=== PATIENT | female | born 1985 | race Caucasian/White ===

== ENCOUNTER 2017-06-24 18:15 | Inpatient (IN) | payer BC, OTHER ==
[2017-06-24] MEDS ORDERED: LORazepam 2 MG/ML SDV IVPUSH ONE (18:24)
[2017-06-24] MEDS ORDERED: Ondansetron 4 MG/2 ML SDV IVPUSH ONE (18:24)
--- NOTE | 2017-06-24 18:31 | EDM.PDOC ---
ED HPI GENERAL MEDICAL PROBLEM - General Chief Complaint: Drug or Alcohol Abuse Stated Complaint: [facility] Time Seen by Provider: 06/24/17 18:20 Source of Information: Reports: Patient - History of Present Illness INITIAL COMMENTS - FREE TEXT/NARRATIVE: Patient is brought here today by the [facility]. Patient reportedly had a seizure at approximately 5:30 PM to this evening, patient has no history of seizures. Seizure was witnessed by her boyfriend who states it lasted 30-60 seconds. Just prior to the seizure patient was laying on the couch watching television with her boyfriend and states that she felt "very off ". She reportedly got up to use the bathroom and fell in the bathroom and boyfriend saw her on the floor seizing. The last thing that the patient remembers was bending over to sit on the toilet. She denies any loss of bowel or bladder function with her seizure. She states that she was nauseated afterwards and a bit confused but no emesis. She denies hitting her head or any head pain currently. Patient admittedly states that she has been drinking a large amount of alcohol recently, her drink of choice is Jagemeister. Patient's boyfriend is also admittedly an alcoholic, they have been trying to cut back on alcohol use together. Patient's boyfriend has been rationing her alcohol use, he states that she has had one shot of Jagemeister today She also reports occasional marijuana use, last use was yesterday. She notes no specific trigger to her drinking but has a history of anxiety. She states that she is a hypochondriac and feels that her persistent drinking as bad for her health so she has been trying to stop this. Patient is unsure how much she drank today, she is not sure what time it is, what day it is or when she was drinking. Patient is on no medications on a regular basis, she was previously on an OCP but states that she hadn't missed a menses to stop this because she thought she that she was . LMP was beginning of April. Patient states that she did was evaluated in the clinic by her PCP for possible and the test was negative. She states that she also has a history of her liver enzymes being high, she states that she had an ultrasound which did not demonstrate any sign of cirrhosis but did demonstrate fatty liver disease. Patient is fairly alert upon examination, her memory is a bit vague in the hour after the seizure. She denies any pain. right side Pain Score (Numeric/FACES): 4 - Related Data Allergies Allergy/AdvReac Type Severity Reaction Status Date / Time No Known Allergies Allergy Verified 06/24/17 18:23 Home Meds: Home Meds . [Unable to Verify Home Med List] 06/24/17 [History] Past Medical History - Past Health History Medical/Surgical History: Denies Medical/Surgical History Social & Family History - Tobacco Use Smoking Status *Q: Current Every Day Smoker Years of Tobacco use: 15 Packs/Tins Daily: 1 - Alcohol Use Days Per Week of Alcohol Use: 5 Number of Drinks Per Day: 5 Total Drinks Per Week: 25 - Recreational Drug Use Recreational Drug Use: No Recreational Drug Type: Reports: Marijuana/Hashish ED ROS GENERAL - Review of Systems Review Of Systems: See Below Constitutional: Reports: Weakness, Fatigue, Decreased Appetite. Denies: Fever, Chills HEENT: Reports: No Symptoms Respiratory: Reports: No Symptoms Cardiovascular: Reports: No Symptoms Endocrine: Reports: No Symptoms GI/Abdominal: Reports: No Symptoms : Reports: No Symptoms Musculoskeletal: Reports: No Symptoms Skin: Reports: No Symptoms - Physical Exam Exam: See Below Exam Limited By: Other (Mild/moderate confusion upon initial examination.) General Appearance: Alert, WD/WN, Anxious Eye Exam: Bilateral Eye: PERRL (dilated but reactive) Ears: Normal External Exam, Normal Canal, Normal TMs Nose: Normal Inspection, Normal Mucosa Throat/Mouth: Normal Inspection, Normal Oropharynx, Other (small bite denis on inside of left lower lip) Head Exam: Atraumatic, Normocephalic. No: Scalp Lacerations, Scalp Abrasions Neck: Normal Inspection Respiratory/Chest: No Respiratory Distress, Lungs Clear, Normal Breath Sounds Cardiovascular: Normal Peripheral Pulses, Regular Rate, Rhythm, No Murmur GI/Abdominal: Normal Bowel Sounds, Soft, Non-Tender Neuro Exam (Abbreviated): Alert, Memory Loss Recent Events, Other (Initial confusion, this did improve significantly after 30-45 minutes of arrival. Patient has decreased memory of the 1 hour after the seizure. The examination she is alert and oriented 3. No sensory or motor defects. Normal reflexes.) Extremities: Normal Inspection, Normal Range of Motion Psychiatric: Anxious Skin Exam: Warm, Dry, Intact EKG INTERPRETATION EKG Date: 06/24/17 Time: 18:32 Rhythm: NSR (Sinus tachycardia) [place]: Normal Comparison: NA - No Prior EKG EKG Interpretation Comments: Reviewed with Dr Iglesias Course - Vital Signs Last Recorded V/S: Last Vital Signs Temp 97 F 06/24/17 18:19 Pulse 135 H 06/24/17 18:19 Resp 18 06/24/17 18:19 BP 144/17 H 06/24/17 18:19 Pulse Ox 10 L 06/24/17 18:19 - Orders/Labs/Meds Orders: Active Orders 24 hr Category Date Time Status EKG 12 Lead [EKG Documentation Completion] [RC] STAT Care 06/24/17 18:24 Active Head wo Cont [CT] Stat Exams 06/24/17 18:24 Taken Magnesium Sulfate/Water [Magnesium Sulfate 2 GM in Med 06/24/17 19:02 Active Water 50 ML] 2 gm Premix Bag 1 bag IV ONETIME Potassium Chloride [KCl 10 MEQ in Water 100 ML] 10 meq Med 06/24/17 20:30 Active Premix Bag 1 bag IV ONETIME Medication Orders Magnesium Sulfate 2 gm/ Premix 50 mls @ 25 mls/hr IV ONETIME ONE Stop: 06/24/17 21:01 Last Admin: 06/24/17 19:35 Dose: 25 mls/hr Potassium Chloride 10 meq/ (Premix) 100 mls @ 100 mls/hr IV ONETIME ONE Stop: 06/24/17 21:29 Last Admin: 06/24/17 19:36 Dose: 100 mls/hr Labs: Laboratory Tests 06/24/17 06/24/17 06/24/17 Range/Units 18:25 18:25 18:25 WBC 10.30 H (3.98-10.04) K/mm3 RBC 4.14 (3.98-5.22) M/mm3 Hgb 15.5 (11.2-15.7) gm/L Hct 43.9 (34.1-44.9) % MCV 106.0 H (79.4-94.8) fl MCH 37.4 H (25.6-32.2) pg MCHC 35.3 (32.2-35.5) g/dl RDW Std Deviation 45.1 (36.4-46.3) fL Plt Count 168 L (182-369) K/mm3 MPV 10.7 (9.4-12.3) fl Neutrophils % (Manual) 57 (40-60) % Band Neutrophils % 0 (0-10) % Lymphocytes % (Manual) 37 (20-40) % Atypical Lymphs % 0 % Monocytes % (Manual) 4 (2-10) % Eosinophils % (Manual) 1 (0.7-5.8) % Basophils % (Manual) 1 (0.1-1.2) Platelet Estimate Adequate Plt Morphology Comment Normal Stomatocytes 3+ marked RBC Morph Comment Not Reportable Sodium 134 L (136-145) mEq/L Potassium 2.5 L (3.5-5.1) mEq/L Chloride 92 L (98-107) mEq/L Carbon Dioxide 25 (21-32) mEq/L Anion Gap 19.5 H (5-15) BUN 5 L (7-18) mg/dL Creatinine 1.1 H (0.55-1.02) mg/dL Est Cr Clr Drug Dosing 65.46 mL/min Estimated GFR (MDRD) 57 (>60) mL/min BUN/Creatinine Ratio 4.5 L (14-18) Glucose 171 H (74-106) mg/dL Calcium 9.8 (8.5-10.1) mg/dL Magnesium 1.3 L (1.8-2.4) mg/dl Total Bilirubin 1.5 H (0.2-1.0) mg/dL GGT 449 H (5-55) U/L AST 101 H (15-37) U/L ALT 65 H (14-59) U/L Alkaline Phosphatase 103 (46-116) U/L Ammonia (11-32) umol/L Total Protein 8.7 H (6.4-8.2) g/dl Albumin 4.6 (3.4-5.0) g/dl Globulin 4.1 gm/dL Albumin/Globulin Ratio 1.1 (1-2) TSH 3rd Generation 4.591 H (0.358-3.74) uIU/mL Urine HCG, Qual (NEGATIVE) Urine Opiates Screen (NEGATIVE) Ur Buprenorphine Scrn (NEGATIVE) Ur Oxycodone Screen (NEGATIVE) Urine Methadone Screen (NEGATIVE) Ur Propoxyphene Screen (NEGATIVE) Ur Barbiturates Screen (NEGATIVE) Ur Tricyclics Screen (NEGATIVE) Ur Phencyclidine Scrn (NEGATIVE) Ur Amphetamine Screen (NEGATIVE) U Methamphetamines Scrn (NEGATIVE) U Benzodiazepines Scrn (NEGATIVE) U Cocaine Metab Screen (NEGATIVE) U Marijuana (THC) Screen (NEGATIVE) Ethyl Alcohol 0.00 (0.00) gm% 06/24/17 06/24/17 06/24/17 Range/Units 18:25 19:05 19:05 WBC (3.98-10.04) K/mm3 RBC (3.98-5.22) M/mm3 Hgb (11.2-15.7) gm/L Hct (34.1-44.9) % MCV (79.4-94.8) fl MCH (25.6-32.2) pg MCHC (32.2-35.5) g/dl RDW Std Deviation (36.4-46.3) fL Plt Count (182-369) K/mm3 MPV (9.4-12.3) fl Neutrophils % (Manual) (40-60) % Band Neutrophils % (0-10) % Lymphocytes % (Manual) (20-40) % Atypical Lymphs % % Monocytes % (Manual) (2-10) % Eosinophils % (Manual) (0.7-5.8) % Basophils % (Manual) (0.1-1.2) Platelet Estimate Plt Morphology Comment Stomatocytes RBC Morph Comment Sodium (136-145) mEq/L Potassium (3.5-5.1) mEq/L Chloride (98-107) mEq/L Carbon Dioxide (21-32) mEq/L Anion Gap (5-15) BUN (7-18) mg/dL Creatinine (0.55-1.02) mg/dL Est Cr Clr Drug Dosing mL/min Estimated GFR (MDRD) (>60) mL/min BUN/Creatinine Ratio (14-18) Glucose (74-106) mg/dL Calcium (8.5-10.1) mg/dL Magnesium (1.8-2.4) mg/dl Total Bilirubin (0.2-1.0) mg/dL GGT (5-55) U/L AST (15-37) U/L ALT (14-59) U/L Alkaline Phosphatase (46-116) U/L Ammonia 21 (11-32) umol/L Total Protein (6.4-8.2) g/dl Albumin (3.4-5.0) g/dl Globulin gm/dL Albumin/Globulin Ratio (1-2) TSH 3rd Generation (0.358-3.74) uIU/mL Urine HCG, Qual Negative (NEGATIVE) Urine Opiates Screen Negative (NEGATIVE) Ur Buprenorphine Scrn Negative (NEGATIVE) Ur Oxycodone Screen Negative (NEGATIVE) Urine Methadone Screen Negative (NEGATIVE) Ur Propoxyphene Screen Negative (NEGATIVE) Ur Barbiturates Screen Negative (NEGATIVE) Ur Tricyclics Screen Negative (NEGATIVE) Ur Phencyclidine Scrn Negative (NEGATIVE) Ur Amphetamine Screen Negative (NEGATIVE) U Methamphetamines Scrn Negative (NEGATIVE) U Benzodiazepines Scrn Presumptive positive H (NEGATIVE) U Cocaine Metab Screen Negative (NEGATIVE) U Marijuana (THC) Screen Presumptive positive H (NEGATIVE) Ethyl Alcohol (0.00) gm% Meds: Medications Generic Name Dose Route Start Last Admin Trade Name Freq PRN Reason Stop Dose Admin Magnesium Sulfate 2 gm/ Premix 50 mls @ 25 mls/hr 06/24/17 19:02 06/24/17 19: 35 IV 06/24/17 21:01 25 mls/hr ONETIME ONE Administration Potassium Chloride 10 meq/ 100 mls @ 100 mls/hr 06/24/17 20:30 06/24/17 19:36 Premix IV 06/24/17 21:29 100 mls/hr ONETIME ONE Administration Discontinued Medications Generic Name Dose Route Start Last Admin Trade Name Freq PRN Reason Stop Dose Admin Sodium Chloride 1,000 mls @ 999 mls/hr 06/24/17 18:58 06/24/17 19:26 Normal Saline IV 06/24/17 19:58 999 mls/hr ONETIME ONE Administration Thiamine HCl 100 mg/ Sodium 101 mls @ 202 mls/hr 06/24/17 18:59 06/24/17 19: 26 Chloride IV 06/24/17 19:00 202 mls/hr ONETIME ONE Administration Lorazepam 1 mg 06/24/17 18:24 06/24/17 18:34 Ativan IVPUSH 06/24/17 18:25 1 mg ONETIME ONE Administration Ondansetron HCl 4 mg 06/24/17 18:24 06/24/17 18:33 Zofran IVPUSH 06/24/17 18:25 4 mg ONETIME ONE Administration Potassium Chloride 20 meq 06/24/17 19:16 06/24/17 19:27 Klor-Con M20 PO 06/24/17 19:17 20 meq ONETIME ONE Administration Vitamin B Complex/Vitamin C 1 cap 06/24/17 19:00 06/24/17 19:27 Super B With Vitamin C PO 06/24/17 19:01 1 cap NOW STA Administration - Re-Assessments/Exams Free Text/Narrative Re-Assessment/Exam: Patient initially rather confused, this did improve significantly after 30-45 minutes of arrival. Seizure likely due to alcohol withdrawal. Lab work is pending and will get a CT of her head without contrast. 1 mg lorazepam was given to help with anxiety and prevent repeat seizure as well as Zofran to help with the nausea. Magnesium low at 1.3 so will supplement this as well. 06/24/17 19:09 Potassium low at 2.5, patient was given 40 mEq of by mouth potassium supplement while her current IV completes and then will be given 10 mEq IV potassium. AST 101, ALC 65 and GGT is 449. Alcohol is negative. Urine is positive for benzodiazepines as well as marijuana. TSH mildly elevated at 4.591. HCG negative. CT of her head demonstrates no acute intracranial abnormality. MCG was completed and patient will be admitted on inpatient status. Case was discussed with Dr. Singleton and Phillip Lincoln PA-C who agreed to accept the patient. 06/24/17 20:02 Departure - Departure Time of Disposition: 20:02 Disposition: Admitted As Inpatient 65 Condition: Fair Clinical Impression: Liver disease due to alcohol, Stomatocytosis, Seizure Alcohol withdrawal syndrome Qualifiers: Complication of substance-induced condition: with unspecified complication Qualified Code(s): F10.239 - Alcohol dependence with withdrawal, unspecified - Discharge Information - My Orders Last 24 Hours: My Active Orders 06/24/17 18:24 EKG 12 Lead [EKG Documentation Completion] [RC] STAT Head wo Cont [CT] Stat 06/24/17 19:02 Magnesium Sulfate/Water [Magnesium Sulfate 2 GM in Water 50 ML] 2 gm Premix Bag 1 bag IV ONETIME 06/24/17 20:30 Potassium Chloride [KCl 10 MEQ in Water 100 ML] 10 meq Premix Bag 1 bag IV ONETIME - Assessment/Plan Last 24 Hours: My Active Orders 06/24/17 18:24 EKG 12 Lead [EKG Documentation Completion] [RC] STAT Head wo Cont [CT] Stat 06/24/17 19:02 Magnesium Sulfate/Water [Magnesium Sulfate 2 GM in Water 50 ML] 2 gm Premix Bag 1 bag IV ONETIME 06/24/17 20:30 Potassium Chloride [KCl 10 MEQ in Water 100 ML] 10 meq Premix Bag 1 bag IV ONETIME
[2017-06-24] MEDS ORDERED: Sodium Chloride 0.9% 1,000 ML IV ONE (18:58)
[2017-06-24] MEDS ORDERED: Thiamine 100 MG in Sodium Chloride 0.9% 100 ML IV ONE (18:59)
[2017-06-24] MEDS ORDERED: Vitamin B Complex With Vitamin C Cap PO STA (19:00)
[2017-06-24] MEDS ORDERED: Magnesium Sulfate/Water 2 GM in Premix Bag 1 BAG IV ONE (19:02)
[2017-06-24] MEDS ORDERED: Potassium Chloride 20 MEQ Tab.ER PO ONE (19:16)
[2017-06-24] MEDS ORDERED: Potassium Chloride 10 MEQ in Premix Bag 1 BAG IV ONE (20:30)
[2017-06-24] MEDS ORDERED: Polyethylene Glycol 3350 Powder 17 GM Packet PO PRN (21:00)
[2017-06-24] MEDS ORDERED: Ondansetron 4 MG/2 ML SDV IV PRN (21:00)
[2017-06-24] MEDS ORDERED: Bisacodyl 5 MG Tab PO PRN (21:00)
[2017-06-24] MEDS ORDERED: HYDROmorphone 0.5 MG/0.5 ML Syringe IVPUSH PRN (21:00)
[2017-06-24] MEDS ORDERED: Acetaminophen 325 MG Tab PO PRN (21:00)
[2017-06-24] MEDS ORDERED: Ondansetron 4 MG Tab.DIS PO PRN (21:00)
[2017-06-24] MEDS ORDERED: Albuterol/Ipratropium 3.0-0.5 MG/3 ML Neb Soln NEB PRN (21:00)
[2017-06-24] MEDS ORDERED: Docusate Sodium 100 MG Cap PO PRN (21:00)
[2017-06-24] MEDS ORDERED: LORazepam 2 MG/ML SDV IVPUSH PRN ×3 (21:08→21:38)
[2017-06-24] MEDS ORDERED: hydrALAZINE 20 MG/ML SDV IVPUSH PRN (21:08)
[2017-06-24] MEDS ORDERED: Metoprolol Tartrate 5 MG/5 ML SDV IVPUSH PRN (21:10)
[2017-06-24] MEDS ORDERED: QUEtiapine 25 MG Tab PO ONE (21:11)
[2017-06-24] MEDS ORDERED: Topiramate 100 MG Tab PO ONE (21:20)
--- NOTE | 2017-06-24 21:25 | PCM.HP ---
H&P History of Present Illness - General Date of Service: 06/24/17 Admit Problem/Dx: Admission Diagnosis/Problem Admission Diagnosis/Problem Alcohol withdrawal seizure Source of Information: Patient, Old Records, Provider, RN, RN Notes Reviewed, Significant Other History Limitations: Reports: No Limitations - History of Present Illness Initial Comments - Free Text/Narative: Ruth Leong is a 32yo female who presents to our ED today via [place] [facility] after having a seizure at home. Seizure was witnessed by her boyfriend and lasted 30-60 seconds. Patient reportedly told her boyfriend that she felt "very off" and got up use the bathroom. Huey saw her on the floor seizing. Denies loss of bladder or bowel control. She states she was nauseated afterwards and confused but did not vomit. Denies hitting head or head pain. She reportedly drinks large amounts of Jagermeister daily but has been attempting to cut back. She reported he had one shot today. Her boyfriend admits that he is also alcoholic and they're both trying to cut back. She reports marijuana use yesterday. She denies any specific trigger to her drinking but does state she has a history of anxiety. She states that she is a hypochondriac and feels her persistent ringing is bad for her health, which is why she is trying to stop. In the ED she was initially orientated to person and place but not time. She reports a history of elevated liver enzymes, and [facility] which showed fatty liver but no cirrhosis. In the ED afebrile at 97F. Pulse was 135. Respirations 18. Blood pressure 112/83. Pulse ox 96%. There is probable left atrial enlargement. She does have Q waves in II, III, and aVF with T-wave inversion on these leads as well. This does show some changes from prior EKG which is several years old. Labs are obtained: CBC 10.30. Hemoglobin 15.5. Hematocrit 43.9. His macrocytic. Platelets are low at 168,000. Sodium is low 134. Potassium very low at 2.5. Chloride low at 92. Carbon dioxide is 25. Anion gap 19.5. BUN is 5. Creatinine 1.1. EGFR is 57. Glucose is high at 171. Calcium 9.8. Magnesium is very low at 1.3. Bilirubin is high at 1.5. GGT is very high at 449. AST is high at 101. ALT is high at 65. Alkaline phosphatase is normal at 103. Ammonia is 21. Protein is elevated at 8.7. Albumin good at 4.6. TSH is elevated at 4.591. UDS is presumptive positive for benzodiazepines and marijuana. Ethyl alcohol is 0.00. 2 g magnesium as well as 10 tablets potassium were given IV. She was given a 1 L bolus of fluid and milligram lorazepam and 100 mg of thiamine. Zofran 4 mg IVP was also given. 20 no: By mouth potassium chloride as well as the vitamin B complex/vitamin C Were given. Confusion did improve significantly after ED arrival. CT of her head was obtained and did insert no acute intracranial abnormality. She denies any past medical or surgical history, however she is a current every day smoker. She uses one pack per day. She has reportedly uses marijuana and alcohol as above. She subsequently admitted to the ICU. She is a full code. Her PCP is Dr. Moya at [facility] in [place]. right side Pain Score (Numeric/FACES): 1 - Related Data Allergies/Adverse Reactions: Allergies Allergy/AdvReac Type Severity Reaction Status Date / Time No Known Allergies Allergy Verified 06/24/17 18:23 Home Medications: Home Meds . [Unable to Verify Home Med List] 06/24/17 [History] Past Medical History - Past Health History Medical/Surgical History: Denies Medical/Surgical History Psychiatric History: Reports: Addiction, Anxiety, Panic Attack Social & Family History - Family History Family Medical History: Noncontributory - Tobacco Use Smoking Status *Q: Current Every Day Smoker Years of Tobacco use: 15 Packs/Tins Daily: 1 - Caffeine Use Caffeine Use: Reports: None - Alcohol Use Days Per Week of Alcohol Use: 5 Number of Drinks Per Day: 5 Total Drinks Per Week: 25 - Recreational Drug Use Recreational Drug Use: No Drug Use in Last 12 Months: Yes Recreational Drug Type: Reports: Marijuana/Hashish Recreational Drug Use Frequency: Socially H&P Review of Systems - Review of Systems: Review Of Systems: See Below Free Text/Narrative: In to see Ruth. We did have a long discussion about her plan of care. She is very concerned about her liver being damaged. I explained to her eventual consequences continued drinking could have on her liver as it is already hurt. She does report having already had some withdrawal symptoms. She has reportedly had auditory hallucinations in the past, however she is not having any currently. She does admit some confusion about the events that happened after her seizure and her eventual transport to the ED. She does admit that she has a drinking problem. She would like help. She is aware that she will see psychiatry and a substance abuse counselor. She reports this is a "wakeup call." Her significant other is in the room with her and voices his commitment to sobriety as well. General: Reports: Malaise, Weakness, Fatigue, Diaphoresis, Decreased Appetite. Denies: Fever, Chills HEENT: Reports: No Symptoms. Denies: Dysphasia, Eye Pain, Headaches, Hearing Changes, Sinus Congestion, Vertigo, Visual Changes Pulmonary: Reports: No Symptoms. Denies: Shortness of Breath, Wheezing, Pleuritic Chest Pain, Sputum Cardiovascular: Reports: Palpitations (none currently ). Denies: Chest Pain, Dyspnea on Exertion, Edema, Lightheadedness, Syncope Gastrointestinal: Reports: No Symptoms. Denies: Black Stool, Bloody Stool, Constipation, Diarrhea, Hematemesis, Hematochezia, Nausea, Vomiting Genitourinary: Reports: No Symptoms. Denies: Dysuria, Frequency, Burning, Pain , Urgency, Incontinence Musculoskeletal: Reports: No Symptoms. Denies: Neck Pain, Shoulder Pain, Arm Pain, Back Pain, Hand Pain, Leg Pain, Foot Pain Skin: Reports: No Symptoms, Diaphoresis. Denies: Cyanosis, Jaundice, Mottled Psychiatric: Reports: No Symptoms, Confusion (improved greatly ), Anxiety, Hallucinations (Auditory) (none currently ). Denies: Depression, Mood Lability , Agitation, Suicidal Ideation, Homicidal Ideation, Hallucinations (Visual) Neurological: Reports: No Symptoms. Denies: Dizziness, Headache, Numbness, Paresthesia, Pre-Existing Deficit, Syncope, Tingling, Tremors, Trouble Speaking , Difficulty Walking, Weakness, Change in Speech, Gait Disturbance Hematologic/Lymphatic: Reports: No Symptoms Immunologic: Reports: No Symptoms Exam - Exam Exam: See Below - Vital Signs Vital Signs: Last Vital Signs Temp 97 F 06/24/17 18:19 Pulse 135 H 06/24/17 18:19 Resp 18 06/24/17 18:19 BP 144/17 H 06/24/17 18:19 Pulse Ox 10 L 06/24/17 18:19 Weight: 150 lb - Exam General: Alert, Oriented, Cooperative. No: Mild Distress HEENT: Conjunctiva Clear, EACs Clear, EOMI, Hearing Intact, Mucosa Moist & Frostproof , Nares Patent, Normal Nasal Septum, Posterior Pharynx Clear, PERRLA Neck: Supple, Trachea Midline. No: JVD, Thyromegaly Lungs: Clear to Auscultation, Normal Respiratory Effort. No: Crackles, Rales, Rhonchi, Rub, Stridor, Wheezing Cardiovascular: Regular Rhythm, Tachycardia. No: Systolic Murmur, Diastolic Murmur GI/Abdominal Exam: Normal Bowel Sounds, Soft, No Organomegaly, No Distention, No Abnormal Bruit, No Mass, Pelvis Stable, Tender (mild RUQ pain on palpation ) (Female) Exam: Deferred Rectal (Female) Exam: Deferred Back Exam: Normal Inspection, Full Range of Motion. No: CVA Tenderness (L), CVA Tenderness (R) Extremities: Normal Inspection, Normal Range of Motion, Non-Tender, No Pedal Edema, Normal Capillary Refill Peripheral Pulses: 3+: Radial (L), Radial (R), Posterior Tibial (L), Posterior Tibial (R), Dorsalis Pedis (L), Dorsalis Pedis (R) Skin: Warm, Dry, Intact Neurological: Cranial Nerves Intact (Grossly) Neuro Extensive - Mental Status: Alert, Oriented x3, Normal Mood/Affect, Normal Cognition Neuro Extensive - Motor, Sensory, Reflexes: CN II-XII Intact (Grossly) Psychiatric: Alert, Normal Affect, Anxious - Patient Data Result Diagrams: 06/24/17 18:25 06/24/17 18:25 *Q Meaningful Use (ADM) - VTE *Q VTE Criteria *Q: - Stroke *Q Stroke Criteria *Q: - AMI *Q AMI Criteria *Q: - Problem List (1) Alcohol withdrawal syndrome SNOMED Code(s): 693703753 ICD Code: F10.239 - ALCOHOL DEPENDENCE WITH WITHDRAWAL, UNSPECIFIED Status : Acute Priority: High Current Visit: Yes Qualifiers: Complication of substance-induced condition: with unspecified complication Qualified Code(s): F10.239 - Alcohol dependence with withdrawal, unspecified (2) Liver disease due to alcohol SNOMED Code(s): 34881344 ICD Code: K70.9 - ALCOHOLIC LIVER DISEASE, UNSPECIFIED Status: Acute Priority: High Current Visit: Yes (3) Seizure SNOMED Code(s): 72084931 ICD Code: R56.9 - UNSPECIFIED CONVULSIONS Status: Acute Priority: High Current Visit: Yes (4) Hypomagnesemia SNOMED Code(s): 607520130 ICD Code: E83.42 - HYPOMAGNESEMIA Status: Acute Priority: High Current Visit: Yes (5) Hypokalemia SNOMED Code(s): 94588549 ICD Code: E87.6 - HYPOKALEMIA Status: Acute Priority: High Current Visit: Yes (6) Tobacco use disorder SNOMED Code(s): 320588079 ICD Code: F17.200 - NICOTINE DEPENDENCE, UNSPECIFIED, UNCOMPLICATED Status : Chronic Priority: Medium Current Visit: Yes (7) Marijuana use SNOMED Code(s): 990500593 ICD Code: F12.90 - CANNABIS USE, UNSPECIFIED, UNCOMPLICATED Status: Chronic Priority: Low Current Visit: Yes Problem List Initiated/Reviewed/Updated: Yes Orders Last 24hrs: Active Orders 24 hr Category Date Time Status Patient Status [ADT] Routine ADT 06/24/17 21:00 Active Ambulate [RC] ASDIRECTED Care 06/24/17 21:00 Active Ambulate [RC] PER UNIT ROUTINE Care 06/24/17 21:02 Active Antiembolic Devices [RC] PER UNIT ROUTINE Care 06/24/17 21:04 Active CIWAA Assessment [RC] Q1H Care 06/24/17 21:06 Ordered Cardiac Monitoring [RC] CONTINUOUS Care 06/24/17 21:02 Active Height and Weight [RC] DAILY Care 06/24/17 21:00 Active Intake and Output [RC] QSHIFT Care 06/24/17 21:02 Active Notify Provider Consults [RC] ASDIRECTED Care 06/24/17 21:04 Active Oxygen Therapy [RC] PRN Care 06/24/17 21:00 Ordered Pulse Oximetry [RC] PRN Care 06/24/17 21:02 Ordered RT Aerosol Therapy [RC] ASDIRECTED Care 06/24/17 21:04 Ordered Up With Assistance [RC] ASDIRECTED Care 06/24/17 21:00 Ordered VTE/DVT Education [RC] PER UNIT ROUTINE Care 06/24/17 21:00 Ordered Vital Signs [RC] Q4H Care 06/24/17 21:00 Active Consult for Substance Abuse [CONS] Routine Cons 06/24/17 21:06 Ordered Consult to Case Management [CONS] Routine Cons 06/24/17 21:00 Active Consult to Physician [CONS] Routine Cons 06/24/17 21:00 Active Consult to Last Pattern Grader [CONS] Routine Cons 06/24/17 21:00 Active Regular Diet [DIET] Diet 06/24/17 Dinner Active BASIC METABOLIC PANEL,BMP [CHEM] AM Lab 06/27/17 05:11 Ordered BASIC METABOLIC PANEL,BMP [CHEM] AM Lab 06/28/17 05:11 Ordered BASIC METABOLIC PANEL,BMP [CHEM] AM Lab 06/25/17 05:11 Ordered BASIC METABOLIC PANEL,BMP [CHEM] AM Lab 06/26/17 05:11 Ordered CBC WITH AUTO DIFF [HEME] AM Lab 06/27/17 05:11 Ordered CBC WITH AUTO DIFF [HEME] AM Lab 06/28/17 05:11 Ordered CBC WITH AUTO DIFF [HEME] AM Lab 06/25/17 05:11 Ordered CBC WITH AUTO DIFF [HEME] AM Lab 06/26/17 05:11 Ordered MAGNESIUM [CHEM] AM Lab 06/27/17 05:11 Ordered MAGNESIUM [CHEM] AM Lab 06/28/17 05:11 Ordered MAGNESIUM [CHEM] AM Lab 06/25/17 05:11 Ordered MAGNESIUM [CHEM] AM Lab 06/26/17 05:11 Ordered Acetaminophen [Tylenol] Med 06/24/17 21:00 Ordered 650 mg PO Q4H PRN Albuterol/Ipratropium [DuoNeb 3.0-0.5 MG/3 ML] Med 06/24/17 21:00 Ordered 3 ml NEB Q4H PRN Bisacodyl [Dulcolax] Med 06/24/17 21:00 Ordered 5 mg PO DAILY PRN Docusate Sodium [Colace] Med 06/24/17 21:00 Ordered 100 mg PO BID PRN Docusate Sodium/Sennosides [Senna Plus] Med 06/24/17 21:00 Ordered 1 tab PO BID PRN Famotidine [Pepcid] Med 06/24/17 21:15 Ordered 20 mg PO BID Folic Acid Med 06/24/17 21:15 Ordered 1 mg PO DAILY HYDROmorphone [Dilaudid] Med 06/24/17 21:00 Ordered 0.25 mg IVPUSH Q2H PRN LORazepam [Ativan] Med 06/24/17 21:08 Ordered 2 mg IVPUSH Q4H PRN LORazepam [Ativan] Med 06/24/17 21:08 Ordered See Protocol IVPUSH Q1H PRN Magnesium Rep Pharmacy to Dose [Pharmacy to Dose - Med 06/24/17 21:08 Ordered Magnesium Replacement] 1 dose .XX ASDIRECTED PRN Metoprolol Tartrate [Lopressor] Med 06/24/17 21:10 Ordered 5 mg IVPUSH Q4H PRN Multivitamins,Therapeutic [Thera] Med 06/25/17 09:00 Ordered 1 each PO DAILY Nicotine [Habitrol] Med 06/24/17 21:00 Ordered 21 mg TRDERM DAILY Ondansetron [Zofran ODT] Med 06/24/17 21:00 Ordered 4 mg PO Q6H PRN Ondansetron [Zofran] Med 06/24/17 21:00 Ordered 4 mg IV Q6H PRN Polyethylene Glycol 3350 [MiraLAX] Med 06/24/17 21:00 Ordered 17 gm PO DAILY PRN Potassium Rep Pharmacy to Dose [Pharmacy to Dose - Med 06/24/17 21:08 Ordered Potassium Replacement] 1 dose .XX ASDIRECTED PRN QUEtiapine [SEROquel] Med 06/25/17 21:00 Ordered 25 mg PO BEDTIME Sodium Chloride 0.9% [Normal Saline] 1,000 ml Med 06/24/17 21:30 Ordered IV ASDIRECTED Thiamine [Vitamin B-1] Med 06/25/17 09:00 Ordered 100 mg PO DAILY Topiramate [Topamax] Med 06/25/17 09:00 Pending 25 mg PO BID Topiramate [Topamax] Med 06/24/17 21:20 Once 50 mg PO ONETIME ONE hydrALAZINE [Apresoline] Med 06/24/17 21:08 Ordered 10 mg IVPUSH Q6H PRN Antiembolic Hose [OM.PC] Per Unit Routine Oth 06/24/17 21:02 Ordered Precautions [COMM] Routine Oth 06/24/17 21:07 Ordered Resuscitation Status Routine Resus Stat 06/24/17 21:00 Ordered Medication Orders Acetaminophen (Tylenol) 650 mg PO Q4H PRN PRN Reason: Pain (Mild 1-3)/fever Albuterol/Ipratropium (Duoneb 3.0-0.5 Mg/3 Ml) 3 ml NEB Q4H PRN PRN Reason: Shortness Of Breath/wheezing Bisacodyl (Dulcolax) 5 mg PO DAILY PRN PRN Reason: Constipation Docusate Sodium (Colace) 100 mg PO BID PRN PRN Reason: Constipation Famotidine (Pepcid) 20 mg PO BID GENNY Folic Acid (Folic Acid) 1 mg PO DAILY GENNY Hydralazine HCl (Apresoline) 10 mg IVPUSH Q6H PRN PRN Reason: Hypertension Hydromorphone HCl (Dilaudid) 0.25 mg IVPUSH Q2H PRN PRN Reason: Pain (severe 7-10) Potassium Chloride 10 meq/ (Premix) 100 mls @ 100 mls/hr IV ONETIME ONE Stop: 06/24/17 21:29 Last Admin: 06/24/17 19:36 Dose: 100 mls/hr Sodium Chloride (Normal Saline) 1,000 mls @ 200 mls/hr IV ASDIRECTED [facility] Lorazepam (Ativan) 2 mg IVPUSH Q4H PRN PRN Reason: Seizures Lorazepam (Ativan) 0 mg IVPUSH Q1H PRN; Protocol PRN Reason: withdrawl Magnesium Sulfate (Pharmacy To Dose - Magnesium Replacement) 1 dose .XX ASDIRECTED PRN PRN Reason: RX TO WATCH MAG LEVELS Metoprolol Tartrate (Lopressor) 5 mg IVPUSH Q4H PRN PRN Reason: Tachycardia Multivitamins (Thera) 1 each PO DAILY [facility] Nicotine (Habitrol) 21 mg TRDERM DAILY [facility] Ondansetron HCl (Zofran Odt) 4 mg PO Q6H PRN PRN Reason: nausea, able to take PO Ondansetron HCl (Zofran) 4 mg IV Q6H PRN PRN Reason: Nausea/Vomiting Polyethylene Glycol (Miralax) 17 gm PO DAILY PRN PRN Reason: Constipation Potassium Chloride (Pharmacy To Dose - Potassium Replacement) 1 dose .XX ASDIRECTED PRN PRN Reason: RX TO WATCH K LEVELS Quetiapine Fumarate (Seroquel) 25 mg PO BEDTIME [facility] Senna/Docusate Sodium (Senna Plus) 1 tab PO BID PRN PRN Reason: Constipation Thiamine HCl (Vitamin B-1) 100 mg PO DAILY GENNY Topiramate (Topamax) 25 mg PO BID GENNY Topiramate (Topamax) 50 mg PO ONETIME ONE Stop: 06/24/17 21:21 Assessment/Plan Comment:: Assessment/Plan: Acute: ETOH Withdrawal Symptoms/DT - CIWA protocol - Topamax/Seroquel - Hydralzine and IVP BB for HR/BP control - Ativan for Abortive Seizure and Withdrawal Symptoms - Ethyl alcohol in ED 0.00 - Tele-psych and SA consult Alcohol Abuse - Chronic - Risk factors: Significant other drinks regularly with her, regular marijuana use, reports hx/o anxiety - She drinks heavily - Jagemeister is drink of choice; 5 drinks per day - She wants to quit and both her and her boyfriend are attempting to cut back consumption - CIWA Protocol as above - SA consult Hx/o Poly-Substance Abuse - Used Marijuana yesterday - UDS: presumptive positive for benzodiazepines and marijuana (benzos given as part of treatment) - Counseled on Substance Abuse - SA/Psych consult Seizure -No hx/o seizures -Boyfriend reports single seizure lasting 30-60 seconds -Was postictal afterwards and confused on ED arrival -Ativan for seizures -CIWA protool as above -Seizure precautions Liver disease due to ETOH use -GGT 449, AST 101, ALT 65, Alkaline phosphatase 103 -Was reportedly seen yesterday at [facility]; ultrasound was preformed and shows fatty liver disease but no cirrhosis -Not jaundiced -Reports hx/o elevated liver enzymes -Counseled on effects of liver disease Hypokalemia -Potassium 2.5 in ED -20meq PO and 10meq IV given in ED -Pharmacy to monitor and replete Hypomagnesemia -Magnesium 1.3 in ED -2gm IV given in ED -Pharmacy to monitor and replete Chronic: Tobacco use disorder - nicotine patch; public relations counselor on smoking cessation Plan: Admit to ICU MVI, Folic Acid and Thiamine CIWA protocol Ativan for Abortive Seizure and Withdrawal Symptoms PRN meds for Withdrawal Symptoms Aspiration/Seizure Precautions SW/CM d/c planning SA/Psych consult Code Status: Full code
[2017-06-24] MEDS: Sodium Chloride 0.9% 1,000 ML IV SCH (21:43)
[2017-06-24] MEDS ORDERED: Topiramate 25 MG Tab PO ONE (21:45)
[2017-06-24] MEDS: Nicotine 21 MG/24 Hr Patch TRDERM SCH (21:45)
[2017-06-24] MEDS: Potassium Chloride 100 ML IV SCH ×2 (21:45→22:50)
[2017-06-24] MEDS: Famotidine 20 MG Tab PO SCH (21:46)
[2017-06-24] MEDS: Folic Acid 1 MG Tab PO SCH (21:46)
[2017-06-24] MEDS ORDERED: diphenhydrAMINE 50 MG/ML SDV IVPUSH ONE (23:10)
[2017-06-25] MEDS: Potassium Chloride 100 ML IV SCH ×3 (01:02→02:07)
[2017-06-25] MEDS: Sodium Chloride 0.9% 1,000 ML IV SCH (05:41)
[2017-06-25] MEDS ORDERED: Thiamine 100 MG Tab PO SCH (09:00)
[2017-06-25] MEDS ORDERED: Potassium Chloride 20 MEQ Tab.ER PO ONE (09:00)
[2017-06-25] MEDS ORDERED: Topiramate 25 MG Tab PO SCH (09:00)
[2017-06-25] MEDS ORDERED: Multivitamins,Therapeutic Tab PO SCH (09:00)
[2017-06-25] MEDS: Nicotine 21 MG/24 Hr Patch TRDERM SCH (09:41)
[2017-06-25] MEDS: Famotidine 20 MG Tab PO SCH (09:42)
[2017-06-25] MEDS: Folic Acid 1 MG Tab PO SCH (09:43)
--- NOTE | 2017-06-25 11:54 | PCM.PN ---
- General Info Date of Service: 06/25/17 - Patient Data Vitals - Most Recent: Last Vital Signs Temp 36.6 C 06/25/17 08:00 Pulse 100 06/25/17 08:00 Resp 16 06/25/17 08:00 BP 113/77 06/25/17 08:00 Pulse Ox 97 06/25/17 08:00 Weight - Most Recent: 70.67 kg I&O - Last 24 Hours: Intake & Output 06/24/17 06/25/17 06/25/17 22:59 06:59 14:59 Intake Total 1663 Output Total 500 Balance 1163 Lab Results Last 24 Hours: Laboratory Results - last 24 hr 06/25/17 06/25/17 06/25/17 Range/Units 05:35 05:35 05:35 WBC 5.74 (3.98-10.04) K/mm3 RBC 3.15 L (3.98-5.22) M/mm3 Hgb 11.7 (11.2-15.7) gm/L Hct 34.7 (34.1-44.9) % MCV 110.2 H (79.4-94.8) fl MCH 37.1 H (25.6-32.2) pg MCHC 33.7 (32.2-35.5) g/dl RDW Std Deviation 46.0 (36.4-46.3) fL Plt Count 146 L (182-369) K/mm3 MPV 10.6 (9.4-12.3) fl Neut % (Auto) 46.1 (34.0-71.1) % Lymph % (Auto) 42.3 (19.3-51.7) % [place] % (Auto) 9.4 (4.7-12.5) % Eos % (Auto) 1.7 (0.7-5.8) Baso % (Auto) 0.5 (0.1-1.2) % Neut # (Auto) 2.64 (1.56-6.13) K/mm3 Lymph # (Auto) 2.43 (1.18-3.74) K/mm3 [place] # (Auto) 0.54 H (0.24-0.36) K/mm3 Eos # (Auto) 0.10 (0.04-0.36) K/mm3 Baso # (Auto) 0.03 (0.01-0.08) K/mm3 Manual Slide Review Abnormal smear Sodium 141 (136-145) mEq/L Potassium 3.4 L (3.5-5.1) mEq/L Chloride 108 H (98-107) mEq/L Carbon Dioxide 26 (21-32) mEq/L Anion Gap 10.4 (5-15) BUN 3 L (7-18) mg/dL Creatinine 0.7 (0.55-1.02) mg/dL Est Cr Clr Drug Dosing 102.86 mL/min Estimated GFR (MDRD) > 60 (>60) mL/min BUN/Creatinine Ratio 4.3 L (14-18) Glucose 90 (74-106) mg/dL Calcium 8.2 L (8.5-10.1) mg/dL Magnesium 2.1 (1.8-2.4) mg/dl Free T4 1.02 (0.76-1.46) ng/dL Med Orders - Current: Current Medications Acetaminophen (Tylenol) 650 mg PO Q4H PRN PRN Reason: Pain (Mild 1-3)/fever Albuterol/Ipratropium (Duoneb 3.0-0.5 Mg/3 Ml) 3 ml NEB Q4H PRN PRN Reason: Shortness Of Breath/wheezing Bisacodyl (Dulcolax) 5 mg PO DAILY PRN PRN Reason: Constipation Docusate Sodium (Colace) 100 mg PO BID PRN PRN Reason: Constipation Famotidine (Pepcid) 20 mg PO BID [facility] Last Admin: 06/25/17 09:42 Dose: 20 mg Folic Acid (Folic Acid) 1 mg PO DAILY [facility] Last Admin: 06/25/17 09:43 Dose: 1 mg Hydralazine HCl (Apresoline) 10 mg IVPUSH Q6H PRN PRN Reason: Hypertension Hydromorphone HCl (Dilaudid) 0.25 mg IVPUSH Q2H PRN PRN Reason: Pain (severe 7-10) Lorazepam (Ativan) 2 mg IVPUSH Q4H PRN PRN Reason: Seizures Lorazepam (Ativan) 1 - 3 mg IVPUSH Q1H PRN; Protocol PRN Reason: withdrawl Magnesium Sulfate (Pharmacy To Dose - Magnesium Replacement) 1 dose .XX ASDIRECTED PRN PRN Reason: RX TO WATCH MAG LEVELS Metoprolol Tartrate (Lopressor) 5 mg IVPUSH Q4H PRN PRN Reason: Tachycardia Miscellaneous Information (Remove Patch) 1 ea TRDERM DAILY [facility] Last Admin: 06/25/17 09:43 Dose: 1 ea Multivitamins (Thera) 1 each PO DAILY [facility] Last Admin: 06/25/17 09:42 Dose: 1 each Nicotine (Habitrol) 21 mg TRDERM DAILY [facility] Last Admin: 06/25/17 09:41 Dose: 21 mg Ondansetron HCl (Zofran Odt) 4 mg PO Q6H PRN PRN Reason: nausea, able to take PO Ondansetron HCl (Zofran) 4 mg IV Q6H PRN PRN Reason: Nausea/Vomiting Polyethylene Glycol (Miralax) 17 gm PO DAILY PRN PRN Reason: Constipation Potassium Chloride (Pharmacy To Dose - Potassium Replacement) 1 dose .XX ASDIRECTED PRN PRN Reason: RX TO WATCH K LEVELS Quetiapine Fumarate (Seroquel) 25 mg PO BEDTIME [facility] Senna/Docusate Sodium (Senna Plus) 1 tab PO BID PRN PRN Reason: Constipation Thiamine HCl (Vitamin B-1) 100 mg PO DAILY [facility] Last Admin: 06/25/17 09:42 Dose: 100 mg Topiramate (Topamax) 25 mg PO BID [facility] Last Admin: 06/25/17 09:42 Dose: 25 mg Discontinued Medications Diphenhydramine HCl (Benadryl) 25 mg IVPUSH ONETIME ONE Stop: 06/24/17 23:11 Last Admin: 06/25/17 05:15 Dose: Not Given Sodium Chloride (Normal Saline) 1,000 mls @ 999 mls/hr IV ONETIME ONE Stop: 06/24/17 19:58 Last Admin: 06/24/17 19:26 Dose: 999 mls/hr Thiamine HCl 100 mg/ Sodium (Chloride) 101 mls @ 202 mls/hr IV ONETIME ONE Stop: 06/24/17 19:00 Last Admin: 06/24/17 19:26 Dose: 202 mls/hr Magnesium Sulfate 2 gm/ Premix 50 mls @ 25 mls/hr IV ONETIME ONE Stop: 06/24/17 21:01 Last Admin: 06/24/17 19:35 Dose: 25 mls/hr Potassium Chloride 10 meq/ (Premix) 100 mls @ 100 mls/hr IV ONETIME ONE Stop: 06/24/17 21:29 Last Admin: 06/24/17 19:36 Dose: 100 mls/hr Sodium Chloride (Normal Saline) 1,000 mls @ 200 mls/hr IV ASDIRECTED GENNY Last Admin: 06/25/17 05:41 Dose: 200 mls/hr Potassium Chloride (Kcl 10 Meq In Water 100 Ml) 100 mls @ 100 mls/hr IV Q1H [facility] Stop: 06/25/17 02:59 Last Admin: 06/25/17 02:07 Dose: 100 mls/hr Lorazepam (Ativan) 1 mg IVPUSH ONETIME ONE Stop: 06/24/17 18:25 Last Admin: 06/24/17 18:34 Dose: 1 mg Lorazepam (Ativan) 0 mg IVPUSH Q1H PRN; Protocol PRN Reason: withdrawl Ondansetron HCl (Zofran) 4 mg IVPUSH ONETIME ONE Stop: 06/24/17 18:25 Last Admin: 06/24/17 18:33 Dose: 4 mg Potassium Chloride (Klor-Con M20) 20 meq PO ONETIME ONE Stop: 06/24/17 19:17 Last Admin: 06/24/17 19:27 Dose: 20 meq Potassium Chloride (Klor-Con M20) 40 meq PO ONETIME ONE Stop: 06/25/17 09:01 Last Admin: 06/25/17 09:42 Dose: 40 meq Quetiapine Fumarate (Seroquel) 50 mg PO ONETIME ONE Stop: 06/24/17 21:12 Last Admin: 06/24/17 21:46 Dose: 50 mg Topiramate (Topamax) 50 mg PO ONETIME ONE Stop: 06/24/17 21:46 Last Admin: 06/24/17 21:49 Dose: Not Given Vitamin B Complex/Vitamin C (Super B With Vitamin C) 1 cap PO NOW STA Stop: 06/24/17 19:01 Last Admin: 06/24/17 19:27 Dose: 1 cap - Plan Plan:: Assessment/Plan: Acute: ETOH Withdrawal Symptoms/DT - CIWA protocol - Topamax/Seroquel - Hydralzine and IVP BB for HR/BP control - Ativan for Abortive Seizure and Withdrawal Symptoms - Ethyl alcohol in ED 0.00 - Tele-psych and SA consult Alcohol Abuse - Chronic - Risk factors: Significant other drinks regularly with her, regular marijuana use, reports hx/o anxiety - She drinks heavily - Jagemeister is drink of choice; 5 drinks per day - She wants to quit and both her and her boyfriend are attempting to cut back consumption - CIWA Protocol as above - SA consult Hx/o Poly-Substance Abuse - Used Marijuana yesterday - UDS: presumptive positive for benzodiazepines and marijuana (benzos given as part of treatment) - Counseled on Substance Abuse - SA/Psych consult Seizure -No hx/o seizures -Boyfriend reports single seizure lasting 30-60 seconds -Was postictal afterwards and confused on ED arrival -Ativan for seizures -CIWA protool as above -Seizure precautions Liver disease due to ETOH use -GGT 449, AST 101, ALT 65, Alkaline phosphatase 103 -Was reportedly seen yesterday at [facility]; ultrasound was preformed and shows fatty liver disease but no cirrhosis -Not jaundiced -Reports hx/o elevated liver enzymes -Counseled on effects of liver disease Hypokalemia -Potassium 2.5 in ED -20meq PO and 10meq IV given in ED -Pharmacy to monitor and replete Hypomagnesemia -Magnesium 1.3 in ED -2gm IV given in ED -Pharmacy to monitor and replete Chronic: Tobacco use disorder - nicotine patch; counsellors on smoking cessation Plan: Admit to ICU MVI, Folic Acid and Thiamine CIWA protocol Ativan for Abortive Seizure and Withdrawal Symptoms PRN meds for Withdrawal Symptoms Aspiration/Seizure Precautions SW/CM d/c planning SA/Psych consult Code Status: Full code
[2017-06-25 12:20] VITALS: BP 106/78
--- NOTE | 2017-06-25 15:26 | PCM.DCSUM1 ---
Discharge Summary - Hospital Course Free Text/Narrative:: 32 year old female brought to the ED by her significant other after she reportedly had an alcohol withdrawal seizure. She was admitted to the ICU per protocol and was treated as appropriate based on CIWAs,. Seizure activity was not noted during her brief hospitalization. Seen was seen in consultation by SA , Psych services. She was DC with information on outpatient treatment. This was her first occasional for ETOH hospitalization, the importance of treatment as well as no driving was discussed on multiple occasions. Primary Dx Alcohol withdrawal seizure ETOH dependence/abuse Major depression PTSD Activity DO NOT DRIVE until evaluated by PCP Diet Usual diet Medications MVI 1 tab daily Topamax 25 mg BID MgO 400 mg BID Habitrol 21 mg daily Prozac 10 mg daily Follow Up PCP Erika Instructions STOP DRINKING NO DRIVING - Discharge Data Discharge Date: 06/25/17 Discharge Disposition: Home, Self-Care 01 Condition: Good - Patient Summary/Data Consults: Consultations 06/24/17 21:00 Consult to Case Management [CONS] Routine Consult to Physician [CONS] Routine Consult to Hospice Volunteer Coordinator [CONS] Routine 06/24/17 21:06 Consult for Substance Abuse [CONS] Routine - Discharge Plan Prescriptions/Med Rec: Multivitamins,Therapeutic [Thera] 1 each PO DAILY #30 tablet Nicotine [Habitrol] 21 mg TRDERM DAILY #30 patch Topiramate [Topamax] 25 mg PO BID #60 tablet Home Medications: Home Meds Multivitamins,Therapeutic [Thera] 1 each PO DAILY #30 tablet 06/25/17 [Rx] Nicotine [Habitrol] 21 mg TRDERM DAILY #30 patch 06/25/17 [Rx] Topiramate [Topamax] 25 mg PO BID #60 tablet 06/25/17 [Rx] Referrals: Neal Moya MD [Primary Care Provider] - - General Info Date of Service: 06/24/17 Functional Status: Reports: Tolerating Diet, Ambulating, Urinating - Review of Systems General: Reports: No Symptoms HEENT: Reports: No Symptoms Pulmonary: Reports: No Symptoms Cardiovascular: Reports: No Symptoms Gastrointestinal: Reports: No Symptoms Genitourinary: Reports: No Symptoms Musculoskeletal: Reports: No Symptoms Skin: Reports: No Symptoms Neurological: Reports: No Symptoms Psychiatric: Reports: No Symptoms - Patient Data Vitals - Most Recent: Last Vital Signs Temp 36.6 C 06/25/17 08:00 Pulse 97 06/25/17 12:00 Resp 16 06/25/17 12:00 BP 106/78 06/25/17 12:00 Pulse Ox 97 06/25/17 12:00 Weight - Most Recent: 70.67 kg I&O - Last 24 hours: Intake & Output 06/25/17 06/25/17 06/25/17 06:59 14:59 22:59 Intake Total 1663 600 Output Total 500 Balance 1163 600 Lab Results - Last 24 hrs: Laboratory Results - last 24 hr 06/25/17 06/25/17 06/25/17 Range/Units 05:35 05:35 05:35 WBC 5.74 (3.98-10.04) K/mm3 RBC 3.15 L (3.98-5.22) M/mm3 Hgb 11.7 (11.2-15.7) gm/L Hct 34.7 (34.1-44.9) % MCV 110.2 H (79.4-94.8) fl MCH 37.1 H (25.6-32.2) pg MCHC 33.7 (32.2-35.5) g/dl RDW Std Deviation 46.0 (36.4-46.3) fL Plt Count 146 L (182-369) K/mm3 MPV 10.6 (9.4-12.3) fl Neut % (Auto) 46.1 (34.0-71.1) % Lymph % (Auto) 42.3 (19.3-51.7) % [place] % (Auto) 9.4 (4.7-12.5) % Eos % (Auto) 1.7 (0.7-5.8) Baso % (Auto) 0.5 (0.1-1.2) % Neut # (Auto) 2.64 (1.56-6.13) K/mm3 Lymph # (Auto) 2.43 (1.18-3.74) K/mm3 [place] # (Auto) 0.54 H (0.24-0.36) K/mm3 Eos # (Auto) 0.10 (0.04-0.36) K/mm3 Baso # (Auto) 0.03 (0.01-0.08) K/mm3 Manual Slide Review Abnormal smear Sodium 141 (136-145) mEq/L Potassium 3.4 L (3.5-5.1) mEq/L Chloride 108 H (98-107) mEq/L Carbon Dioxide 26 (21-32) mEq/L Anion Gap 10.4 (5-15) BUN 3 L (7-18) mg/dL Creatinine 0.7 (0.55-1.02) mg/dL Est Cr Clr Drug Dosing 102.86 mL/min Estimated GFR (MDRD) > 60 (>60) mL/min BUN/Creatinine Ratio 4.3 L (14-18) Glucose 90 (74-106) mg/dL Calcium 8.2 L (8.5-10.1) mg/dL Magnesium 2.1 (1.8-2.4) mg/dl Free T4 1.02 (0.76-1.46) ng/dL Med Orders - Current: Current Medications Acetaminophen (Tylenol) 650 mg PO Q4H PRN PRN Reason: Pain (Mild 1-3)/fever Albuterol/Ipratropium (Duoneb 3.0-0.5 Mg/3 Ml) 3 ml NEB Q4H PRN PRN Reason: Shortness Of Breath/wheezing Bisacodyl (Dulcolax) 5 mg PO DAILY PRN PRN Reason: Constipation Docusate Sodium (Colace) 100 mg PO BID PRN PRN Reason: Constipation Famotidine (Pepcid) 20 mg PO BID [facility] Last Admin: 06/25/17 09:42 Dose: 20 mg Folic Acid (Folic Acid) 1 mg PO DAILY [facility] Last Admin: 06/25/17 09:43 Dose: 1 mg Hydralazine HCl (Apresoline) 10 mg IVPUSH Q6H PRN PRN Reason: Hypertension Hydromorphone HCl (Dilaudid) 0.25 mg IVPUSH Q2H PRN PRN Reason: Pain (severe 7-10) Lorazepam (Ativan) 2 mg IVPUSH Q4H PRN PRN Reason: Seizures Lorazepam (Ativan) 1 - 3 mg IVPUSH Q1H PRN; Protocol PRN Reason: withdrawl Magnesium Sulfate (Pharmacy To Dose - Magnesium Replacement) 1 dose .XX ASDIRECTED PRN PRN Reason: RX TO WATCH MAG LEVELS Metoprolol Tartrate (Lopressor) 5 mg IVPUSH Q4H PRN PRN Reason: Tachycardia Miscellaneous Information (Remove Patch) 1 ea TRDERM DAILY [facility] Last Admin: 06/25/17 09:43 Dose: 1 ea Multivitamins (Thera) 1 each PO DAILY [facility] Last Admin: 06/25/17 09:42 Dose: 1 each Nicotine (Habitrol) 21 mg TRDERM DAILY [facility] Last Admin: 06/25/17 09:41 Dose: 21 mg Ondansetron HCl (Zofran Odt) 4 mg PO Q6H PRN PRN Reason: nausea, able to take PO Ondansetron HCl (Zofran) 4 mg IV Q6H PRN PRN Reason: Nausea/Vomiting Polyethylene Glycol (Miralax) 17 gm PO DAILY PRN PRN Reason: Constipation Potassium Chloride (Pharmacy To Dose - Potassium Replacement) 1 dose .XX ASDIRECTED PRN PRN Reason: RX TO WATCH K LEVELS Quetiapine Fumarate (Seroquel) 25 mg PO BEDTIME [facility] Senna/Docusate Sodium (Senna Plus) 1 tab PO BID PRN PRN Reason: Constipation Thiamine HCl (Vitamin B-1) 100 mg PO DAILY [facility] Last Admin: 06/25/17 09:42 Dose: 100 mg Topiramate (Topamax) 25 mg PO BID [facility] Last Admin: 06/25/17 09:42 Dose: 25 mg Discontinued Medications Diphenhydramine HCl (Benadryl) 25 mg IVPUSH ONETIME ONE Stop: 06/24/17 23:11 Last Admin: 06/25/17 05:15 Dose: Not Given Sodium Chloride (Normal Saline) 1,000 mls @ 999 mls/hr IV ONETIME ONE Stop: 06/24/17 19:58 Last Admin: 06/24/17 19:26 Dose: 999 mls/hr Thiamine HCl 100 mg/ Sodium (Chloride) 101 mls @ 202 mls/hr IV ONETIME ONE Stop: 06/24/17 19:00 Last Admin: 06/24/17 19:26 Dose: 202 mls/hr Magnesium Sulfate 2 gm/ Premix 50 mls @ 25 mls/hr IV ONETIME ONE Stop: 06/24/17 21:01 Last Admin: 06/24/17 19:35 Dose: 25 mls/hr Potassium Chloride 10 meq/ (Premix) 100 mls @ 100 mls/hr IV ONETIME ONE Stop: 06/24/17 21:29 Last Admin: 06/24/17 19:36 Dose: 100 mls/hr Sodium Chloride (Normal Saline) 1,000 mls @ 200 mls/hr IV ASDIRECTED [facility] Last Admin: 06/25/17 05:41 Dose: 200 mls/hr Potassium Chloride (Kcl 10 Meq In Water 100 Ml) 100 mls @ 100 mls/hr IV Q1H [facility] Stop: 06/25/17 02:59 Last Admin: 06/25/17 02:07 Dose: 100 mls/hr Lorazepam (Ativan) 1 mg IVPUSH ONETIME ONE Stop: 06/24/17 18:25 Last Admin: 06/24/17 18:34 Dose: 1 mg Lorazepam (Ativan) 0 mg IVPUSH Q1H PRN; Protocol PRN Reason: withdrawl Ondansetron HCl (Zofran) 4 mg IVPUSH ONETIME ONE Stop: 06/24/17 18:25 Last Admin: 06/24/17 18:33 Dose: 4 mg Potassium Chloride (Klor-Con M20) 20 meq PO ONETIME ONE Stop: 06/24/17 19:17 Last Admin: 06/24/17 19:27 Dose: 20 meq Potassium Chloride (Klor-Con M20) 40 meq PO ONETIME ONE Stop: 06/25/17 09:01 Last Admin: 06/25/17 09:42 Dose: 40 meq Quetiapine Fumarate (Seroquel) 50 mg PO ONETIME ONE Stop: 06/24/17 21:12 Last Admin: 06/24/17 21:46 Dose: 50 mg Topiramate (Topamax) 50 mg PO ONETIME ONE Stop: 06/24/17 21:46 Last Admin: 06/24/17 21:49 Dose: Not Given Vitamin B Complex/Vitamin C (Super B With Vitamin C) 1 cap PO NOW STA Stop: 06/24/17 19:01 Last Admin: 06/24/17 19:27 Dose: 1 cap - Exam Quality Assessment: Reports: DVT Prophylaxis General: Reports: Alert, Oriented, Cooperative, No Acute Distress HEENT: Reports: Pupils Equal, Pupils Reactive, EOMI Neck: Reports: Supple, Trachea Midline, No JVD Lungs: Reports: Normal Respiratory Effort Cardiovascular: Reports: Regular Rate, Regular Rhythm GI/Abdominal Exam: Normal Bowel Sounds, Soft, Non-Tender, No Organomegaly, No Distention (Female) Exam: Deferred Rectal (Female) Exam: Deferred Back Exam: Reports: Normal Inspection Extremities: Normal Inspection, Normal Range of Motion, Non-Tender, No Pedal Edema, Normal Capillary Refill Skin: Reports: Warm Neurological: Reports: No New Focal Deficit, Normal Gait, Normal Speech Psy/Mental Status: Reports: Alert, Normal Affect, Normal Mood *Q Meaningful Use (DIS) - VTE *Q VTE Criteria *Q: - Stroke *Q Stroke Criteria *Q: - AMI *Q AMI Criteria *Q:
[2017-06-25] MEDS ORDERED: Magnesium Oxide 400 MG Tab PO SCH (21:00)
[2017-06-25] MEDS ORDERED: QUEtiapine 25 MG Tab PO SCH (21:00)
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
--- NOTE | 2017-06-25 22:58 | CONS ---
CONSULTING PHYSICIAN: Uzair Garcia MD DATE OF CONSULTATION: 06/25/2017 This is a 60-minute inpatient clinical event. IDENTIFICATION: The patient is a 32-year-old female who is admitted to the inpatient MICU at [facility] in [place], [place]. She is seen for psychiatric evaluation. CHIEF COMPLAINT: "I had a seizure." HISTORY OF PRESENT ILLNESS: The patient is a 32-year-old female who has been drinking "a little bit too much" and notes that she has been trying to cut back on her drinking. She states "I just want to get healthier, sick of the hangovers." She states she had been drinking about a pint of whiskey a day and had been cut back, and then last night on 06/24/2017, "I was in the bathroom and I guess my boyfriend saw me having a seizure" and so the patient was brought to the hospital by 911 and then admitted. Evidently, the patient was dehydrated and has been getting IV fluids since that time. Her BAL was 0.0 on admission. She denies having any previous seizure history. She states that she had cut back her drinking from a pint of whiskey a day, and over the last few days, she had not been having any alcohol except for "maybe a shot a day, I had a shot yesterday." She reports increased anxiety, lack of appetite, decreased interest, decreased energy, and increased isolative behavior. She states "I have a lot of panic attacks." She denies that she is suicidal or homicidal. She denies any psychotic, delusional, or paranoid symptoms. She states she went through "a recent divorce over the past 2 years," this has been pretty hard on her. She states that she took Prozac in the past and she thinks it may have helped her, though she acknowledges "I didn't really give it a chance." She is open to trying something to help her with her anxiety and "excessive panic attacks" and also anything to help her with preventing any further seizures because this was really upsetting to her that she had a seizure and she states, "I am just a hypochondriac to begin with, so this doesn't help matters." MEDICATIONS: At presentation, none. ALLERGIES: No known drug allergies. PAST MEDICAL HISTORY: History of fatty liver. REVIEW OF SYSTEMS: Aside from hepatic, all other major organ systems are negative at this point in time for acute difficulties or complications. FAMILY PSYCHIATRIC AND CD HISTORY: The patient denies. PAST PSYCHIATRIC AND CD HISTORY: The patient denies any previous psychiatric hospitalizations or chemical dependency treatments. She was drinking about a half pint to a pint of whiskey a day according to her report. She has been to AA before and she is open to try that again as she thinks it helped her a little bit in the past, but she felt a little bit nervous going to the meeting. She denies any previous suicide attempts, self-injurious behaviors, or eating disorder. PAST PSYCHIATRIC DIAGNOSIS: Includes anxiety. PAST PSYCHIATRIC MEDICATION HISTORY: Includes Prozac. The patient has not been in counseling. She is a smoker. SOCIAL HISTORY: The patient was born and raised in [facility]. She is oldest of 3 siblings and 1 brother and 1 sister. The patient's parents were throughout her childhood and adolescence. Father worked in [employer]. Mother is a sorter upholstery parts. The patient's highest level of education is one year at [employer] school. 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 She was x1 for 10 years but got just about 6 months ago. She also reports 1 at 30 years of age. She states she has been in current relationship for 14 months because even though the divorce was just finalized 6 months ago, her and her a couple years ago after her started having an affair. She still thinks about the divorce and the quite abating though she tries to not think about it. She is currently living with her boyfriend in [place], [place], and her boyfriend works as an industrial maintenance repairer. The patient reports 2 years of service in the [employer]. She received an honorable discharge after she had an illness that prevented her from completing all of her training. She is currently on probation for violating a restraining order against her ex-. She is raised Zoroastrianism. She enjoys playing video games, cooking, kayaking, gardening, and board games. MENTAL STATUS EXAM: The patient is a 32-year-old white female in no apparent distress. Speech is of regular rate and rhythm. The patient is cognitively oriented. Psychomotor activity is within normal limits. There is no abnormal motor movements or tics observed. Gait and station are not observed, as the patient is seated for the entirety of the inpatient interview. Mood is anxious. Affect is cooperative overall for the purposes of the inpatient consult. There is no behavioral or stated evidence of acute suicidal or homicidal ideation or acute psychotic, delusional, or paranoid symptoms. Thought processes are organized. There are no manic symptoms, loose associations evident. Judgment and insight appear unimpaired at this point in time. Motivation for help is good. VITAL SIGNS: 5 feet 5 inches tall, 150 pounds, 113/77, 96, 18, 97.8 degrees. IMPRESSION: Bogart I: 1. Alcohol dependence, F10.20. 2. Major depressive disorder, F32.2. 3. Posttraumatic stress disorder, F43.10. 4. Rule out panic attacks with agoraphobic symptoms. Bogart II: None. Bogart III: History of fatty liver. Bogart IV: Severe. Bogart V: 55-60. PLAN: 1. Sobriety. 2. AA. 3. Pastoral guidance. 4. Begin trial of Prozac 10 mg q.a.m. to help with mood and panic attacks. 5. Begin Topamax 20 mg b.i.d. for anxiety reduction and seizure prophylaxis. 6. Recommend that the patient followup with Outpatient Psychiatry to review her medications after discharge to make sure that they are effective for her. 7. Once the patient is medically stable, recommend the patient be discharged back to the community, as she does not appear to be a danger to herself or others from a psychiatric standpoint. 8. We will continue to follow up with the patient on a regular basis as needed while she remains on an inpatient medical unit. 9. We will follow up with the patient sooner if any complications in the interim. 10.Crisis plan is in place. MMROLAND /[id number]
[2017-06-26] MEDS ORDERED: FLUoxetine 10 MG Cap PO SCH (09:00)
--- NOTE | 2017-06-26 09:23 | CT ---
Head CT Technique: Multiple axial sections through the brain were obtained. Intravenous contrast was not utilized. Comparison: No previous intracranial imaging. Findings: Ventricles along with basal cisterns and sulci over the convexities are within normal limits. No abnormal parenchymal densities are seen. No evidence of intracranial hemorrhage. No midline shift or mass effect is seen. Bone window settings were reviewed which show the visualized sinuses to appear clear. No acute calvarial abnormality is seen. Impression: 1. No acute intracranial abnormality is identified on noncontrast head CT exam. Diagnostic code #1 I agree with preliminary report issued by [facility] ([facility] report finalized on 06/24/17, 8:45 PM Central Time)
== END 2017-06-25 16:20 | disposition home or self-care (01) | DRG 775 ==
LOC: JD.ED 18:15 → JD.ICU 20:20
PROVIDERS: ADMIT Internal Medicine; ATTEND Internal Medicine
DX: F10.239 Alcohol dependence with withdrawal, unspecified (principal); R56.9 Unspecified convulsions; E83.42 Hypomagnesemia; E87.6 Hypokalemia; D58.8 Other specified hereditary hemolytic anemias; K70.9 Alcoholic liver disease, unspecified; F10.232 Alcohol dependence with withdrawal with perceptual disturbance; F17.210 Nicotine dependence, cigarettes, uncomplicated; F12.20 Cannabis dependence, uncomplicated; F32.2 Major depressive disorder, single episode, severe without psychotic features; F43.10 Post-traumatic stress disorder, unspecified
CPT/HCPCS: 36415; 70450; 70450-26; 80048; 80053; 80306; 81025; 82140; 82977; 83735; 84439; 84443; 85025; 93005; 93010; 96365; 96367; 96368; 96375; 99284-25; 99285-25; A9270; A9270-GY; G0480; J2060; J2405; J3411; J3475; J3480; J7030; J7040

== ENCOUNTER 2017-07-06 13:12 | Emergency (ER) | payer BC ==
[2017-07-06 13:20] VITALS: BP 131/99
--- NOTE | 2017-07-06 13:37 | EDM.PDOCBH ---
ED HPI GENERAL MEDICAL PROBLEM - General Chief Complaint: Drug or Alcohol Abuse Stated Complaint: [facility] Time Seen by Provider: 07/06/17 13:37 Source of Information: Reports: Patient - History of Present Illness INITIAL COMMENTS - FREE TEXT/NARRATIVE: Patient is here for dizziness/lightheadedness and just an overall unwell feeling. Patient admits alcohol abuse. She was recently hospitalized for alcohol withdrawal seizure, she states that she was sober for 1 week upon discharge and did get drunk last night off [employer] approximately one half of a liter to celebrate how long she admitted sober. Patient states that she did vomit this morning. She continues to feel nauseated. She is feeling dizzy and lightheaded. Patient knows that she needs to quit alcohol, she is willing to do so but states that she does she is going to stumble along the way. - Related Data Allergies Allergy/AdvReac Type Severity Reaction Status Date / Time No Known Allergies Allergy Verified 07/06/17 13:21 Home Meds: Home Meds Multivitamins,Therapeutic [Thera] 1 each PO DAILY #30 tablet 06/25/17 [Rx] Topiramate [Topamax] 25 mg PO BID #60 tablet 06/25/17 [Rx] LORazepam [Ativan] 0.5 mg PO BID PRN #10 tablet 07/06/17 [Rx] Past Medical History - Past Health History Medical/Surgical History: Denies Medical/Surgical History HEENT History: Reports: Impaired Vision Other HEENT History: wears corrective lenses Psychiatric History: Reports: Addiction, Anxiety, Panic Attack Social & Family History - Family History Family Medical History: Noncontributory - Tobacco Use Smoking Status *Q: Current Every Day Smoker Years of Tobacco use: 18 Packs/Tins Daily: 0.5 Used Tobacco, but Quit: No Second Hand Smoke Exposure: No - Caffeine Use Caffeine Use: Reports: Coffee - Alcohol Use Days Per Week of Alcohol Use: 5 Number of Drinks Per Day: 5 Total Drinks Per Week: 25 Date of Last Drink: 07/05/17 Time of Last Drink: 22:00 - Recreational Drug Use Recreational Drug Use: No Drug Use in Last 12 Months: Yes Recreational Drug Type: Reports: Marijuana/Hashish Recreational Drug Use Frequency: Socially ED ROS GENERAL - Review of Systems Review Of Systems: See Below Constitutional: Reports: Malaise, Weakness, Fatigue, Decreased Appetite. Denies : Fever, Chills HEENT: Reports: No Symptoms Respiratory: Reports: No Symptoms Cardiovascular: Reports: No Symptoms GI/Abdominal: Reports: Decreased Appetite, Nausea, Vomiting. Denies: Abdominal Pain, Anorexia, Black Stool, Bloody Stool : Reports: No Symptoms Musculoskeletal: Reports: No Symptoms Skin: Reports: No Symptoms Neurological: Reports: Dizziness, Headache. Denies: Confusion, Numbness, Trouble Speaking Psychiatric: Reports: No Symptoms ED EXAM, BEHAVIORAL HEALTH - Physical Exam Exam: See Below Exam Limited By: No Limitations General Appearance: Alert, WD/WN, No Apparent Distress Eye Exam: Bilateral Eye: PERRL Ears: Normal External Exam, Normal Canal, Normal TMs Nose: Normal Inspection Throat/Mouth: Normal Inspection, Normal Oropharynx Head: Atraumatic, Normocephalic Neck: Normal Inspection, Non-Tender Respiratory/Chest: No Respiratory Distress, Normal Breath Sounds, No Accessory Muscle Use Cardiovascular: Normal Peripheral Pulses, Regular Rate, Rhythm, No Murmur GI/Abdominal: Normal Bowel Sounds, Soft, Non-Tender Extremities: Normal Inspection, Normal Range of Motion, Normal Capillary Refill Neurological: Alert, Normal Mood/Affect Psychiatric: Alert, Normal Affect Skin Exam: Warm, Dry, Intact COURSE, BEHAVIORAL HEALTH COMP - Course Vital Signs: Last Vital Signs Temp 96.8 F 07/06/17 13:18 Pulse 90 07/06/17 13:18 Resp 18 07/06/17 13:18 BP 131/99 H 07/06/17 13:18 Pulse Ox 100 07/06/17 13:18 Orders, Labs, Meds: Active Orders 24 hr Category Date Time Status Sodium Chloride 0.9% [Normal Saline] 1,000 ml Med 07/06/17 14:57 Active IV ONETIME Medication Orders Sodium Chloride (Normal Saline) 1,000 mls @ 250 mls/hr IV ONETIME ONE Stop: 07/06/17 18:56 Last Admin: 07/06/17 15:13 Dose: 250 mls/hr Laboratory Tests 07/06/17 07/06/17 07/06/17 Range/Units 15:18 15:18 15:18 WBC 10.80 H (3.98-10.04) K/mm3 RBC 3.77 L (3.98-5.22) M/mm3 Hgb 13.7 (11.2-15.7) gm/L Hct 39.8 (34.1-44.9) % MCV 105.6 H (79.4-94.8) fl MCH 36.3 H (25.6-32.2) pg MCHC 34.4 (32.2-35.5) g/dl RDW Std Deviation 46.9 H (36.4-46.3) fL Plt Count 408 H (182-369) K/mm3 MPV 9.0 L (9.4-12.3) fl Neutrophils % (Manual) 80 H (40-60) % Band Neutrophils % 0 (0-10) % Lymphocytes % (Manual) 14 L (20-40) % Atypical Lymphs % 0 % Monocytes % (Manual) 4 (2-10) % Eosinophils % (Manual) 1 (0.7-5.8) % Basophils % (Manual) 1 (0.1-1.2) Platelet Estimate Adequate Polychromasia Few Anisocytosis 2+ moderate Macrocytosis 2+ moderate RBC Morph Comment Not Reportable Sodium 139 (136-145) mEq/L Potassium 3.4 L (3.5-5.1) mEq/L Chloride 106 (98-107) mEq/L Carbon Dioxide 20 L (21-32) mEq/L Anion Gap 16.4 H (5-15) BUN 4 L (7-18) mg/dL Creatinine 0.7 (0.55-1.02) mg/dL Est Cr Clr Drug Dosing 102.86 mL/min Estimated GFR (MDRD) > 60 (>60) mL/min BUN/Creatinine Ratio 5.7 L (14-18) Glucose 87 (74-106) mg/dL Calcium 9.4 (8.5-10.1) mg/dL Magnesium 1.7 L (1.8-2.4) mg/dl Total Bilirubin 0.6 (0.2-1.0) mg/dL AST 98 H (15-37) U/L ALT 46 (14-59) U/L Alkaline Phosphatase 69 (46-116) U/L Total Protein 7.5 (6.4-8.2) g/dl Albumin 3.7 (3.4-5.0) g/dl Globulin 3.8 gm/dL Albumin/Globulin Ratio 1.0 (1-2) Urine Color (Yellow) Urine Appearance (Clear) Urine pH (5.0-8.0) Ur Specific Kelly (1.005-1.030) Urine Protein (Negative) Urine Glucose (UA) (Negative) Urine Ketones (Negative) Urine Occult Blood (Negative) Urine Nitrite (Negative) Urine Bilirubin (Negative) Urine Urobilinogen (0.2-1.0) Ur Leukocyte Esterase (Negative) Urine RBC (0-5) /hpf Urine WBC (0-5) /hpf Ur Epithelial Cells (0-5) /hpf Urine Bacteria (FEW) /hpf Urine Mucus (FEW) /hpf Urine Opiates Screen (NEGATIVE) Ur Buprenorphine Scrn (NEGATIVE) Ur Oxycodone Screen (NEGATIVE) Urine Methadone Screen (NEGATIVE) Ur Propoxyphene Screen (NEGATIVE) Ur Barbiturates Screen (NEGATIVE) Ur Tricyclics Screen (NEGATIVE) Ur Phencyclidine Scrn (NEGATIVE) Ur Amphetamine Screen (NEGATIVE) U Methamphetamines Scrn (NEGATIVE) U Benzodiazepines Scrn (NEGATIVE) U Cocaine Metab Screen (NEGATIVE) U Marijuana (THC) Screen (NEGATIVE) Ethyl Alcohol 0.02 (0.00) gm% 07/06/17 07/06/17 Range/Units 15:20 15:20 WBC (3.98-10.04) K/mm3 RBC (3.98-5.22) M/mm3 Hgb (11.2-15.7) gm/L Hct (34.1-44.9) % MCV (79.4-94.8) fl MCH (25.6-32.2) pg MCHC (32.2-35.5) g/dl RDW Std Deviation (36.4-46.3) fL Plt Count (182-369) K/mm3 MPV (9.4-12.3) fl Neutrophils % (Manual) (40-60) % Band Neutrophils % (0-10) % Lymphocytes % (Manual) (20-40) % Atypical Lymphs % % Monocytes % (Manual) (2-10) % Eosinophils % (Manual) (0.7-5.8) % Basophils % (Manual) (0.1-1.2) Platelet Estimate Polychromasia Anisocytosis Macrocytosis RBC Morph Comment Sodium (136-145) mEq/L Potassium (3.5-5.1) mEq/L Chloride (98-107) mEq/L Carbon Dioxide (21-32) mEq/L Anion Gap (5-15) BUN (7-18) mg/dL Creatinine (0.55-1.02) mg/dL Est Cr Clr Drug Dosing mL/min Estimated GFR (MDRD) (>60) mL/min BUN/Creatinine Ratio (14-18) Glucose (74-106) mg/dL Calcium (8.5-10.1) mg/dL Magnesium (1.8-2.4) mg/dl Total Bilirubin (0.2-1.0) mg/dL AST (15-37) U/L ALT (14-59) U/L Alkaline Phosphatase (46-116) U/L Total Protein (6.4-8.2) g/dl Albumin (3.4-5.0) g/dl Globulin gm/dL Albumin/Globulin Ratio (1-2) Urine Color Dark yellow (Yellow) Urine Appearance Clear (Clear) Urine pH 7.0 (5.0-8.0) Ur Specific Kelly 1.025 (1.005-1.030) Urine Protein 1+ H (Negative) Urine Glucose (UA) Negative (Negative) Urine Ketones 2+ H (Negative) Urine Occult Blood Trace-intact H (Negative) Urine Nitrite Negative (Negative) Urine Bilirubin 1+ H (Negative) Urine Urobilinogen 4.0 H (0.2-1.0) Ur Leukocyte Esterase Negative (Negative) Urine RBC 0-5 (0-5) /hpf Urine WBC 5-10 H (0-5) /hpf Ur Epithelial Cells 5-10 H (0-5) /hpf Urine Bacteria Moderate H (FEW) /hpf Urine Mucus Moderate H (FEW) /hpf Urine Opiates Screen Negative (NEGATIVE) Ur Buprenorphine Scrn Negative (NEGATIVE) Ur Oxycodone Screen Negative (NEGATIVE) Urine Methadone Screen Negative (NEGATIVE) Ur Propoxyphene Screen Negative (NEGATIVE) Ur Barbiturates Screen Negative (NEGATIVE) Ur Tricyclics Screen Negative (NEGATIVE) Ur Phencyclidine Scrn Negative (NEGATIVE) Ur Amphetamine Screen Negative (NEGATIVE) U Methamphetamines Scrn Negative (NEGATIVE) U Benzodiazepines Scrn Negative (NEGATIVE) U Cocaine Metab Screen Negative (NEGATIVE) U Marijuana (THC) Screen Presumptive positive H (NEGATIVE) Ethyl Alcohol (0.00) gm% Medications Generic Name Dose Route Start Last Admin Trade Name Freq PRN Reason Stop Dose Admin Sodium Chloride 1,000 mls @ 250 mls/hr 07/06/17 14:57 07/06/17 15:13 Normal Saline IV 07/06/17 18:56 250 mls/hr ONETIME ONE Administration Discontinued Medications Generic Name Dose Route Start Last Admin Trade Name Freq PRN Reason Stop Dose Admin Magnesium Sulfate/Dextrose 1 100 mls @ 100 mls/hr 07/06/17 15:44 07/06/17 16: 21 gm/ Premix IV 07/06/17 16:43 100 mls/hr ONETIME ONE Administration Lorazepam 0.5 mg 07/06/17 14:57 07/06/17 15:15 Ativan IVPUSH 07/06/17 14:58 0.5 mg ONETIME ONE Administration Ondansetron HCl 4 mg 07/06/17 14:57 07/06/17 15:13 Zofran IVPUSH 07/06/17 14:58 4 mg ONETIME ONE Administration Re-Assessment/Re-Exam: Neurologic exam is completely normal. Patient's nausea has completely resolved with Zofran, she is feeling less dizzy and weak with the lorazepam and fluids. Magnesium is low at 1.7, will give 1 g IV. Liver enzymes are improved from earlier this month with her period of sobriety. Patient is now drinking oral water, will order her some dinner and see how she is feeling after this that she has not eaten since early yesterday. Patient's symptoms significantly improved after eating. Likely related to last night's binge drinking in combination with not eating. Will discharge patient home with a very small amount of Ativan, did discuss the addiction potential of this. She will follow up at [facility] this week to establish outpatient treatment for her alcoholism. Advised patient to continue to avoid alcohol and not celebrate by drinking. She needs to eat regular meals as well. Departure - Departure Time of Disposition: 17:34 Disposition: Home, Self-Care 01 Condition: Good Clinical Impression: Alcohol abuse, Nausea Alcohol withdrawal syndrome Qualifiers: Complication of substance-induced condition: with unspecified complication Qualified Code(s): F10.239 - Alcohol dependence with withdrawal, unspecified - Discharge Information Prescriptions: LORazepam [Ativan] 0.5 mg PO BID PRN #10 tablet PRN Reason: Anxiety Referrals: Neal Moya MD [Primary Care Provider] - Additional Instructions: Your neurologic exam was completely normal. I suspect that your symptoms were due to your drinking and/or not eating. You need to abstain from alcohol and eat regular meals. You need to follow-up with her primary provider as well as go through treatment at [facility] as initially planned. Follow-up with your PCP as scheduled or return to ER if needed. - My Orders Last 24 Hours: My Active Orders 07/06/17 14:57 Sodium Chloride 0.9% [Normal Saline] 1,000 ml IV ONETIME - Assessment/Plan Last 24 Hours: My Active Orders 07/06/17 14:57 Sodium Chloride 0.9% [Normal Saline] 1,000 ml IV ONETIME
[2017-07-06] MEDS ORDERED: LORazepam 2 MG/ML SDV IVPUSH ONE (14:57)
[2017-07-06] MEDS ORDERED: Ondansetron 4 MG/2 ML SDV IVPUSH ONE (14:57)
[2017-07-06] MEDS ORDERED: Sodium Chloride 0.9% 1,000 ML IV ONE (14:57)
== END 2017-07-06 17:50 | disposition home or self-care (01) ==
LOC: JD.ED 13:12
DX: F10.239 Alcohol dependence with withdrawal, unspecified (principal); F17.210 Nicotine dependence, cigarettes, uncomplicated; Y90.0 Blood alcohol level of less than 20 mg/100 ml
CPT/HCPCS: 36415; 80053; 80306; 81001; 83735; 85025; 96361; 96365; 96375; 99285; G0480; J2060; J2405; J3475; J7040; 99284

== ENCOUNTER 2017-09-07 11:10 | Emergency (ER) | payer BC ==
[2017-09-07 11:18] VITALS: BP 138/103
[2017-09-07] MEDS ORDERED: Sodium Chloride 0.9% 1,000 ML IV ONE ×2 (11:23→14:49)
[2017-09-07] MEDS ORDERED: Sodium Chloride 0.9% 10 ML Syringe FLUSH PRN (11:23)
--- NOTE | 2017-09-07 12:20 | EDM.PDOC ---
ED HPI GENERAL MEDICAL PROBLEM - General Chief Complaint: General Stated Complaint: FEELS FAINT Time Seen by Provider: 09/07/17 11:17 Source of Information: Reports: Patient History Limitations: Reports: No Limitations - History of Present Illness INITIAL COMMENTS - FREE TEXT/NARRATIVE: 32 y/o F with hx ETOH abuse presents with "not feeling well." She states she's been on a binge and has been mostly drinking alcohol and not eating much. She feels dizzy and faint. Hasn't passed out. Last drink early this morning. Had some vomiting, no hematemesis. No diarrhea. Had abd pain this AM, now resolved. Denies cough/CP. No fever. No urinary symptoms. She has previously been seen at [facility] for substance abuse but hasn't been there lately. - Related Data Allergies Allergy/AdvReac Type Severity Reaction Status Date / Time No Known Allergies Allergy Verified 09/07/17 11:19 Home Meds: Home Meds FLUoxetine [PROzac] 10 mg PO DAILY 09/07/17 [History] Past Medical History - Past Health History Medical/Surgical History: Denies Medical/Surgical History HEENT History: Reports: Impaired Vision Other HEENT History: wears corrective lenses Psychiatric History: Reports: Addiction, Anxiety, Panic Attack Social & Family History - Family History Family Medical History: Noncontributory - Tobacco Use Smoking Status *Q: Current Every Day Smoker Years of Tobacco use: 17 Packs/Tins Daily: 1 Used Tobacco, but Quit: No Second Hand Smoke Exposure: No - Caffeine Use Caffeine Use: Reports: Coffee - Alcohol Use Days Per Week of Alcohol Use: 7 Number of Drinks Per Day: 10 Total Drinks Per Week: 70 - Recreational Drug Use Recreational Drug Use: No Drug Use in Last 12 Months: Yes Recreational Drug Type: Reports: Marijuana/Hashish Recreational Drug Use Frequency: Socially ED ROS GENERAL - Review of Systems Review Of Systems: See Below Constitutional: Reports: Chills, Malaise, Weakness, Fatigue HEENT: Reports: No Symptoms Respiratory: Denies: Shortness of Breath Cardiovascular: Denies: Chest Pain Endocrine: Reports: Fatigue GI/Abdominal: Denies: Abdominal Pain : Denies: Dysuria Musculoskeletal: Reports: No Symptoms Skin: Reports: No Symptoms Neurological: Reports: Dizziness ED EXAM, GENERAL - Physical Exam Exam: See Below Exam Limited By: No Limitations General Appearance: Alert, WD/WN, No Apparent Distress Eye Exam: Bilateral Eye: Normal Inspection, PERRL Ears: Normal External Exam Nose: Normal Inspection Throat/Mouth: Normal Inspection, Normal Oropharynx, Normal Voice Head: Atraumatic, Normocephalic Neck: Normal Inspection, Supple, Non-Tender, Full Range of Motion Respiratory/Chest: No Respiratory Distress, Lungs Clear, Normal Breath Sounds Cardiovascular: Normal Peripheral Pulses, Regular Rate, Rhythm, No Edema, No Murmur GI/Abdominal: Soft, Non-Tender, No Distention. No: Rebound Back Exam: Normal Inspection Extremities: Normal Inspection, Other (not tremulous) Neurological: Alert, Oriented, CN II-XII Intact, Normal Cognition, No Motor/ Sensory Deficits Psychiatric: Normal Affect, Normal Mood Skin Exam: Warm, Dry, Intact, Normal Color, No Rash Course - Vital Signs Last Recorded V/S: Last Vital Signs Temp 37.2 C 09/07/17 11:15 Pulse 100 09/07/17 11:15 Resp 17 09/07/17 11:15 BP 138/103 H 09/07/17 11:15 Pulse Ox 99 09/07/17 11:15 Orthostatic Blood Pressure [ 126/101 Standing] Orthostatic Blood Pressure [ 130/96 Supine] - Orders/Labs/Meds Orders: Active Orders 24 hr Category Date Time Status EKG 12 Lead [EKG Documentation Completion] [RC] STAT Care 09/07/17 11:23 Active Peripheral IV Care [RC] . DIRECTED Care 09/07/17 11:23 Active Peripheral IV Insertion Adult [OM.PC] Routine Oth 09/07/17 11:23 Ordered Labs: Laboratory Tests 09/07/17 09/07/17 09/07/17 Range/Units 11:33 11:33 11:33 WBC 6.98 (3.98-10.04) K/mm3 RBC 3.82 L (3.98-5.22) M/mm3 Hgb 13.3 (11.2-15.7) gm/L Hct 38.6 (34.1-44.9) % MCV 101.0 H (79.4-94.8) fl MCH 34.8 H (25.6-32.2) pg MCHC 34.5 (32.2-35.5) g/dl RDW Std Deviation 53.2 H (36.4-46.3) fL Plt Count 260 (182-369) K/mm3 MPV 9.1 L (9.4-12.3) fl Neut % (Auto) 55.8 (34.0-71.1) % Lymph % (Auto) 34.0 (19.3-51.7) % [place] % (Auto) 9.0 (4.7-12.5) % Eos % (Auto) 0.4 L (0.7-5.8) Baso % (Auto) 0.7 (0.1-1.2) % Neut # (Auto) 3.89 (1.56-6.13) K/mm3 Lymph # (Auto) 2.37 (1.18-3.74) K/mm3 [place] # (Auto) 0.63 H (0.24-0.36) K/mm3 Eos # (Auto) 0.03 L (0.04-0.36) K/mm3 Baso # (Auto) 0.05 (0.01-0.08) K/mm3 Sodium 144 (136-145) mEq/L Potassium 2.7 L (3.5-5.1) mEq/L Chloride 105 (98-107) mEq/L Carbon Dioxide 27 (21-32) mEq/L Anion Gap 14.7 (5-15) BUN 5 L (7-18) mg/dL Creatinine 0.7 (0.55-1.02) mg/dL Est Cr Clr Drug Dosing 102.86 mL/min Estimated GFR (MDRD) > 60 (>60) mL/min BUN/Creatinine Ratio 7.1 L (14-18) Glucose 125 H (74-106) mg/dL Calcium 8.4 L (8.5-10.1) mg/dL Magnesium 1.6 L (1.8-2.4) mg/dl Total Bilirubin 0.4 (0.2-1.0) mg/dL AST 36 (15-37) U/L ALT 23 (14-59) U/L Alkaline Phosphatase 59 (46-116) U/L Troponin I < 0.017 (0.00-0.056) ng/mL Total Protein 7.2 (6.4-8.2) g/dl Albumin 3.4 (3.4-5.0) g/dl Globulin 3.8 gm/dL Albumin/Globulin Ratio 0.9 L (1-2) Lipase 251 (73-393) U/L Urine Color (Yellow) Urine Appearance (Clear) Urine pH (5.0-8.0) Ur Specific [place] (1.005-1.030) Urine Protein (Negative) Urine Glucose (UA) (Negative) Urine Ketones (Negative) Urine Occult Blood (Negative) Urine Nitrite (Negative) Urine Bilirubin (Negative) Urine Urobilinogen (0.2-1.0) Ur Leukocyte Esterase (Negative) Urine RBC (0-5) /hpf Urine WBC (0-5) /hpf Ur Epithelial Cells (0-5) /hpf Urine Bacteria (FEW) /hpf Urine Mucus (FEW) /hpf Urine HCG, Qual (NEGATIVE) Ethyl Alcohol 0.17 (0.00) gm% 09/07/17 09/07/17 Range/Units 12:30 12:30 WBC (3.98-10.04) K/mm3 RBC (3.98-5.22) M/mm3 Hgb (11.2-15.7) gm/L Hct (34.1-44.9) % MCV (79.4-94.8) fl MCH (25.6-32.2) pg MCHC (32.2-35.5) g/dl RDW Std Deviation (36.4-46.3) fL Plt Count (182-369) K/mm3 MPV (9.4-12.3) fl Neut % (Auto) (34.0-71.1) % Lymph % (Auto) (19.3-51.7) % [place] % (Auto) (4.7-12.5) % Eos % (Auto) (0.7-5.8) Baso % (Auto) (0.1-1.2) % Neut # (Auto) (1.56-6.13) K/mm3 Lymph # (Auto) (1.18-3.74) K/mm3 [place] # (Auto) (0.24-0.36) K/mm3 Eos # (Auto) (0.04-0.36) K/mm3 Baso # (Auto) (0.01-0.08) K/mm3 Sodium (136-145) mEq/L Potassium (3.5-5.1) mEq/L Chloride (98-107) mEq/L Carbon Dioxide (21-32) mEq/L Anion Gap (5-15) BUN (7-18) mg/dL Creatinine (0.55-1.02) mg/dL Est Cr Clr Drug Dosing mL/min Estimated GFR (MDRD) (>60) mL/min BUN/Creatinine Ratio (14-18) Glucose (74-106) mg/dL Calcium (8.5-10.1) mg/dL Magnesium (1.8-2.4) mg/dl Total Bilirubin (0.2-1.0) mg/dL AST (15-37) U/L ALT (14-59) U/L Alkaline Phosphatase (46-116) U/L Troponin I (0.00-0.056) ng/mL Total Protein (6.4-8.2) g/dl Albumin (3.4-5.0) g/dl Globulin gm/dL Albumin/Globulin Ratio (1-2) Lipase (73-393) U/L Urine Color Yellow (Yellow) Urine Appearance Clear (Clear) Urine pH 6.0 (5.0-8.0) Ur Specific [place] > or = 1.030 (1.005-1.030) Urine Protein 1+ H (Negative) Urine Glucose (UA) Negative (Negative) Urine Ketones Trace H (Negative) Urine Occult Blood Negative (Negative) Urine Nitrite Negative (Negative) Urine Bilirubin 1+ H (Negative) Urine Urobilinogen 1.0 (0.2-1.0) Ur Leukocyte Esterase Negative (Negative) Urine RBC Not seen (0-5) /hpf Urine WBC 0-5 (0-5) /hpf Ur Epithelial Cells 0-5 (0-5) /hpf Urine Bacteria Not seen (FEW) /hpf Urine Mucus Few (FEW) /hpf Urine HCG, Qual Negative (NEGATIVE) Ethyl Alcohol (0.00) gm% Meds: Medications Discontinued Medications Generic Name Dose Route Start Last Admin Trade Name Freq PRN Reason Stop Dose Admin Chlordiazepoxide HCl 50 mg 09/07/17 13:35 09/07/17 13:54 Librium PO 09/07/17 13:36 50 mg ONETIME ONE Administration Chlordiazepoxide HCl 50 mg 09/07/17 15:49 09/07/17 16:02 Librium PO 09/07/17 15:50 50 mg ONETIME ONE Administration Sodium Chloride 1,000 mls @ 1,000 mls/hr 09/07/17 11:23 09/07/17 11:33 Normal Saline IV 09/07/17 12:22 1,000 mls/hr ONETIME ONE Administration Potassium Chloride 10 meq/ 100 mls @ 100 mls/hr 09/07/17 12:45 09/07/17 13:50 Premix IV 09/07/17 14:44 100 mls/hr Q1H GENNY Administration Magnesium Sulfate 2 gm/ Premix 50 mls @ 25 mls/hr 09/07/17 13:31 09/07/17 13: 54 IV 09/07/17 15:30 25 mls/hr ONETIME ONE Administration Sodium Chloride 1,000 mls @ 1,000 mls/hr 09/07/17 14:49 09/07/17 14:54 Normal Saline IV 09/07/17 15:48 1,000 mls/hr ONETIME ONE Administration Lorazepam 1 mg 09/07/17 13:36 09/07/17 13:52 Ativan IVPUSH 09/07/17 13:37 0.5 ml ONETIME ONE Administration Potassium Chloride 40 meq 09/07/17 12:32 09/07/17 12:47 Potassium Chloride PO 09/07/17 12:33 40 meq ONETIME ONE Administration Sodium Chloride 10 ml 09/07/17 11:23 09/07/17 11:33 Saline Flush FLUSH 10 ml ASDIRECTED PRN Administration Keep Vein Open - Re-Assessments/Exams Free Text/Narrative Re-Assessment/Exam: 09/07/17 15:46 Labs show hypokalemia and hypomagnesemia. Electrolytes replaced. She feels better after electrolyte replacement/fluids/1mg ativan and 50 mg librium. Vitals normal. Offered [facility] crisis bed and librium for detox but patient declined. She wants to go home. I'm not going to send her home with librium as she doesn't have an adequate plan for monitoring/support. Encouraged her to return to the ED if she has withdrawal symptoms. Will also provide phone number for [facility]. 09/07/17 17:49 Departure - Departure Time of Disposition: 15:47 Disposition: Home, Self-Care 01 Clinical Impression: Hypokalemia, Dehydration, Alcohol abuse - Discharge Information Instructions: Alcohol Use Disorder, Hypokalemia, Dehydration, Adult, Easy-to- Read Referrals: Neal Myoa MD [Primary Care Provider] - Forms: ED Department Discharge, ED Return to Work/School Form Additional Instructions: 1. Follow up with [facility] as soon as possible for help with your alcohol abuse. Call [phone]. 2. Also follow up with Dr. Moreira. 3. Return to the ED if you have worsening withdrawal symptoms, or other new concerning symptoms such as difficulty breathing, chest pain, vomiting without keeping liquids down, or other concerns. - My Orders Last 24 Hours: My Active Orders 09/07/17 11:23 EKG 12 Lead [EKG Documentation Completion] [RC] STAT Peripheral IV Care [RC] . DIRECTED Peripheral IV Insertion Adult [OM.PC] Routine - Assessment/Plan Last 24 Hours: My Active Orders 09/07/17 11:23 EKG 12 Lead [EKG Documentation Completion] [RC] STAT Peripheral IV Care [RC] . DIRECTED Peripheral IV Insertion Adult [OM.PC] Routine
[2017-09-07] MEDS ORDERED: Potassium Chloride 10% 20 MEQ/15 ML Soln 30 ML UD Cup PO ONE (12:32)
[2017-09-07] MEDS: Potassium Chloride 10 MEQ in Premix Bag 1 BAG IV SCH ×2 (12:42→13:50)
[2017-09-07] MEDS ORDERED: Magnesium Sulfate/Water 2 GM in Premix Bag 1 BAG IV ONE (13:31)
[2017-09-07] MEDS ORDERED: chlordiazePOXIDE 25 MG Cap PO ONE ×2 (13:35→15:49)
[2017-09-07] MEDS ORDERED: LORazepam 2 MG/ML SDV IVPUSH ONE (13:36)
== END 2017-09-07 16:00 | disposition home or self-care (01) ==
LOC: JD.ED 11:10
DX: F10.10 Alcohol abuse, uncomplicated (principal); Y90.0 Blood alcohol level of less than 20 mg/100 ml; E86.0 Dehydration; E87.6 Hypokalemia; F17.210 Nicotine dependence, cigarettes, uncomplicated
CPT/HCPCS: 36415; 80053; 81001; 81025; 83690; 83735; 84484; 85025; 93005; 96361; 96365; 96366; 96367; 96375; 99285; A9270; G0480; J2060; J3480; J7040; J7050; 99284; J3475

== ENCOUNTER 2017-11-04 15:11 | Emergency (ER) | payer BC ==
[2017-11-04 15:32] VITALS: BP 135/95
--- NOTE | 2017-11-04 16:47 | EDM.PDOCBH ---
ED HPI GENERAL MEDICAL PROBLEM - General Chief Complaint: Drug or Alcohol Abuse Stated Complaint: ALCOHOL WITHDRAWAL Time Seen by Provider: 11/04/17 16:07 Source of Information: Reports: Patient History Limitations: Reports: No Limitations - History of Present Illness INITIAL COMMENTS - FREE TEXT/NARRATIVE: 32 y/o F with hx ETOH abuse presents requesting clearance to go to [facility]. She has a history of drinking heavily, many shots daily. [place] generally weak/ malaise today so came to the ED since she was feeling poorly. Just feels vaguely weak. Poor appetite. Has been drinking heavily and not eating well. No fever. No vomiting. No cough/difficulty breathing/chest pain. No abdominal pain. No urinary symptoms. Denies drug use. Last ETOH intake was this morning, she did two shots. She's interested in possibly getting help. She talked to someone at [facility] who advised her to come to the ED for medical clearance. She 's now stating she's not sure if she wants to go to [facility], she's concerned about missing work tomorrow. - Related Data Allergies Allergy/AdvReac Type Severity Reaction Status Date / Time No Known Allergies Allergy Verified 09/07/17 11:19 Home Meds: Home Meds . [No Known Home Meds] 11/04/17 [History] Past Medical History - Past Health History Medical/Surgical History: Denies Medical/Surgical History HEENT History: Reports: Impaired Vision Other HEENT History: wears corrective lenses Psychiatric History: Reports: Addiction, Anxiety, Panic Attack Social & Family History - Family History Family Medical History: Noncontributory - Tobacco Use Smoking Status *Q: Current Every Day Smoker Years of Tobacco use: 18 Packs/Tins Daily: 1 - Caffeine Use Caffeine Use: Reports: Energy Drinks - Recreational Drug Use Recreational Drug Type: Reports: Marijuana/Hashish Other Recreational Drug Type: quit marijuana ED ROS GENERAL - Review of Systems Review Of Systems: See Below Constitutional: Reports: Malaise, Weakness, Fatigue HEENT: Reports: No Symptoms Respiratory: Denies: Shortness of Breath Cardiovascular: Denies: Chest Pain Endocrine: Reports: Fatigue GI/Abdominal: Reports: Vomiting. Denies: Abdominal Pain : Reports: No Symptoms Musculoskeletal: Reports: No Symptoms Skin: Reports: No Symptoms Neurological: Reports: Dizziness Psychiatric: Reports: No Symptoms Hematologic/Lymphatic: Reports: No Symptoms ED EXAM, BEHAVIORAL HEALTH - Physical Exam Exam: See Below Exam Limited By: No Limitations General Appearance: Alert, WD/WN, No Apparent Distress Eye Exam: Bilateral Eye: Normal Inspection Ears: Normal External Exam Nose: Normal Inspection Throat/Mouth: Normal Inspection, Normal Oropharynx, Normal Voice, No Airway Compromise Head: Atraumatic, Normocephalic Neck: Normal Inspection, Supple, Non-Tender Respiratory/Chest: No Respiratory Distress, Lungs Clear, Normal Breath Sounds, Chest Non-Tender Cardiovascular: Normal Peripheral Pulses, Regular Rate, Rhythm, No Murmur GI/Abdominal: Soft, Non-Tender, No Distention Back Exam: Normal Inspection Extremities: Normal Inspection Neurological: Alert, Normal Mood/Affect, Normal Cognition, No Motor/Sensory Deficits, Oriented x 3 Psychiatric: Alert, Normal Affect, Normal Cognition, Normal Mood Skin Exam: Warm, Dry, Intact, Normal color, No rash COURSE, BEHAVIORAL HEALTH COMP - Course Vital Signs: Last Vital Signs Temp 36.7 C 11/04/17 15:30 Pulse 95 11/04/17 15:30 Resp 20 11/04/17 15:30 BP 135/95 H 11/04/17 15:30 Pulse Ox 98 11/04/17 15:30 Orders, Labs, Meds: Laboratory Tests 11/04/17 11/04/17 11/04/17 Range/Units 16:16 16:16 16:16 WBC 5.05 (3.98-10.04) K/mm3 RBC 3.77 L (3.98-5.22) M/mm3 Hgb 13.5 (11.2-15.7) gm/L Hct 39.6 (34.1-44.9) % MCV 105.0 H (79.4-94.8) fl MCH 35.8 H (25.6-32.2) pg MCHC 34.1 (32.2-35.5) g/dl RDW Std Deviation 48.9 H (36.4-46.3) fL Plt Count 219 (182-369) K/mm3 MPV 9.0 L (9.4-12.3) fl Neut % (Auto) 58.4 (34.0-71.1) % Lymph % (Auto) 29.9 (19.3-51.7) % [place] % (Auto) 9.7 (4.7-12.5) % Eos % (Auto) 0.6 L (0.7-5.8) Baso % (Auto) 1.2 (0.1-1.2) % Neut # (Auto) 2.95 (1.56-6.13) K/mm3 Lymph # (Auto) 1.51 (1.18-3.74) K/mm3 [place] # (Auto) 0.49 H (0.24-0.36) K/mm3 Eos # (Auto) 0.03 L (0.04-0.36) K/mm3 Baso # (Auto) 0.06 (0.01-0.08) K/mm3 Sodium 141 (136-145) mEq/L Potassium 2.7 L (3.5-5.1) mEq/L Chloride 102 (98-107) mEq/L Carbon Dioxide 26 (21-32) mEq/L Anion Gap 15.7 H (5-15) BUN 8 (7-18) mg/dL Creatinine 0.7 (0.55-1.02) mg/dL Est Cr Clr Drug Dosing 102.86 mL/min Estimated GFR (MDRD) > 60 (>60) mL/min BUN/Creatinine Ratio 11.4 L (14-18) Glucose 123 H (74-106) mg/dL Calcium 8.4 L (8.5-10.1) mg/dL Magnesium (1.8-2.4) mg/dl Total Bilirubin 0.4 (0.2-1.0) mg/dL AST 46 H (15-37) U/L ALT 26 (14-59) U/L Alkaline Phosphatase 51 (46-116) U/L Total Protein 7.1 (6.4-8.2) g/dl Albumin 3.3 L (3.4-5.0) g/dl Globulin 3.8 gm/dL Albumin/Globulin Ratio 0.9 L (1-2) HCG, Qual (NEGATIVE) Urine HCG, Qual Cancelled Ethyl Alcohol 0.27 (0.00) gm% 11/04/17 11/04/17 Range/Units 16:16 16:16 WBC (3.98-10.04) K/mm3 RBC (3.98-5.22) M/mm3 Hgb (11.2-15.7) gm/L Hct (34.1-44.9) % MCV (79.4-94.8) fl MCH (25.6-32.2) pg MCHC (32.2-35.5) g/dl RDW Std Deviation (36.4-46.3) fL Plt Count (182-369) K/mm3 MPV (9.4-12.3) fl Neut % (Auto) (34.0-71.1) % Lymph % (Auto) (19.3-51.7) % [place] % (Auto) (4.7-12.5) % Eos % (Auto) (0.7-5.8) Baso % (Auto) (0.1-1.2) % Neut # (Auto) (1.56-6.13) K/mm3 Lymph # (Auto) (1.18-3.74) K/mm3 [place] # (Auto) (0.24-0.36) K/mm3 Eos # (Auto) (0.04-0.36) K/mm3 Baso # (Auto) (0.01-0.08) K/mm3 Sodium (136-145) mEq/L Potassium (3.5-5.1) mEq/L Chloride (98-107) mEq/L Carbon Dioxide (21-32) mEq/L Anion Gap (5-15) BUN (7-18) mg/dL Creatinine (0.55-1.02) mg/dL Est Cr Clr Drug Dosing mL/min Estimated GFR (MDRD) (>60) mL/min BUN/Creatinine Ratio (14-18) Glucose (74-106) mg/dL Calcium (8.5-10.1) mg/dL Magnesium 1.9 (1.8-2.4) mg/dl Total Bilirubin (0.2-1.0) mg/dL AST (15-37) U/L ALT (14-59) U/L Alkaline Phosphatase (46-116) U/L Total Protein (6.4-8.2) g/dl Albumin (3.4-5.0) g/dl Globulin gm/dL Albumin/Globulin Ratio (1-2) HCG, Qual Negative (NEGATIVE) Urine HCG, Qual Ethyl Alcohol (0.00) gm% Medications Discontinued Medications Generic Name Dose Route Start Last Admin Trade Name Freq PRN Reason Stop Dose Admin Potassium Chloride 10 meq/ 100 mls @ 100 mls/hr 11/04/17 17:15 11/04/17 19:08 Premix IV 11/04/17 19:14 100 mls/hr Q1H GENNY Administration Sodium Chloride Confirm 11/04/17 17:42 Normal Saline Administered 11/04/17 17:43 Dose 1,000 mls @ as directed .ROUTE .STK-MED ONE Magnesium Oxide 800 mg 11/04/17 18:46 11/04/17 19:18 Magnesium Oxide PO 11/04/17 18:47 800 mg ONETIME ONE Administration Potassium Chloride 40 meq 11/04/17 17:01 11/04/17 19:18 Potassium Chloride PO 11/04/17 17:02 Not Given ONETIME ONE Potassium Chloride 40 meq 11/04/17 19:15 11/04/17 19:18 Klor-Con M20 PO 40 meq DAILY GENNY Administration Medical Clearance: 11/04/17 18:43 Labs significant for hyopkalemia with potassium 2.7. She has had hyopkalemia previously. Not clear if this is due to poor nutritional intake vs. underlying disorder. We will replace with both IV and PO potassium. Her renal function is normal. ETOH .27. Advised patient that she drove over here with ETOH level nearly 4 times the legal limit and that I'm very concerned about her drinking. She is now reluctant to pursue treatment at [facility], states she can't miss work this weekend. I did call over to [facility] and they currently have a crisis bed available should she be willing to go. Departure - Departure Time of Disposition: 20:15 Disposition: Home, Self-Care 01 Clinical Impression: Hypokalemia, Alcohol intoxication delirium with moderate or severe use disorder - Discharge Information Instructions: Alcohol Use Disorder, Hypokalemia, Alcohol Intoxication, Easy-to- Read Referrals: Neal Moya MD [Primary Care Provider] - Additional Instructions: 1. Follow up at [facility] on Tuesday at 8AM. Call [phone] to schedule. 2. Please do not drive while intoxicated. You could hurt yourself or an innocent child. 3. Return to the ED as needed for withdrawal symptoms or other concerns.
[2017-11-04] MEDS ORDERED: Potassium Chloride 10% 20 MEQ/15 ML Soln 30 ML UD Cup PO ONE (17:01)
[2017-11-04] MEDS ORDERED: Sodium Chloride 0.9% 1,000 ML ONE (17:42)
[2017-11-04] MEDS: Potassium Chloride 10 MEQ in Premix Bag 1 BAG IV SCH ×2 (17:55→19:08)
[2017-11-04] MEDS ORDERED: Magnesium Oxide 400 MG Tab PO ONE (18:46)
[2017-11-04] MEDS ORDERED: Potassium Chloride 20 MEQ Tab.ER PO SCH (19:15)
== END 2017-11-04 20:17 | disposition home or self-care (01) ==
LOC: JD.ED 15:11
DX: E87.6 Hypokalemia (principal); F10.121 Alcohol abuse with intoxication delirium; Y90.1 Blood alcohol level of 20-39 mg/100 ml; F17.210 Nicotine dependence, cigarettes, uncomplicated
CPT/HCPCS: 36415; 80053; 83735; 84703; 85025; 96365; 96366; 99285; A9270; G0480; J3480; 99284

== ENCOUNTER 2020-04-18 09:02 | Inpatient (IN) | payer BC ==
[2020-04-18] MEDS ORDERED: Sodium Chloride 0.9% 10 ML Syringe FLUSH PRN (09:25)
[2020-04-18] MEDS ORDERED: Famotidine 20 MG/2 ML SDV IVPUSH ONE (09:35)
[2020-04-18] MEDS ORDERED: Ondansetron 4 MG/2 ML SDV IVPUSH ONE (09:35)
[2020-04-18] MEDS ORDERED: Sodium Chloride 0.9% 1,000 ML IV SCH ×2 (09:45→12:00)
[2020-04-18] MEDS ORDERED: HYDROmorphone 0.5 MG/0.5 ML Syringe IVPUSH ONE ×2 (10:59→13:13)
[2020-04-18] MEDS ORDERED: Potassium Chloride 10 MEQ in Premix Bag 1 BAG IV ONE (11:48)
--- NOTE | 2020-04-18 12:09 | EDM.PDOC ---
ED HPI GENERAL MEDICAL PROBLEM - General Chief Complaint: General Stated Complaint: DIABETIC/PANCREATITS Time Seen by Provider: 04/18/20 09:21 Source of Information: Reports: Patient, RN Notes Reviewed - History of Present Illness INITIAL COMMENTS - FREE TEXT/NARRATIVE: 35 yr old female with onset of abd pain, nausea, about 4 days ago. Has had intermitent vomiting. She does abuse alcohol. She states the abd pain does get better with tylenol, she did take a couple about 2 hrs ago but does not go away. Not actively vomiting this morning. She had labs and abd CT at [facility] yesterday. Was advised to be admitted but we were on diversion yesterday. States the pain kept her up all night. No prior known hx of pancreatitis. Her GB is out, removed about 1 1/2 yrs ago. Treatments [employer]: Reports: Acetaminophen Abdomen Pain Score (Numeric/FACES): 2 - Related Data Allergies Allergy/AdvReac Type Severity Reaction Status Date / Time No Known Allergies Allergy Verified 04/18/20 09:17 Home Meds: Home Meds . [No Known Home Meds] 11/04/17 [History] Past Medical History - Past Health History Medical/Surgical History: Denies Medical/Surgical History HEENT History: Reports: Impaired Vision Other HEENT History: wears corrective lenses Psychiatric History: Reports: Addiction, Anxiety, Panic Attack Endocrine/Metabolic History: Reports: Diabetes, Type II, Obesity/BMI 30+ - Past Surgical History GI Surgical History: Reports: Cholecystectomy Social & Family History - Family History Family Medical History: Noncontributory - Tobacco Use Tobacco Use Status *Q: Current Every Day Tobacco User Years of Tobacco use: 20 Packs/Tins Daily: 1 - Caffeine Use Caffeine Use: Reports: None - Recreational Drug Use Recreational Drug Use: Yes Recreational Drug Type: Reports: Marijuana/Hashish ED ROS GENERAL - Review of Systems Review Of Systems: See Below Constitutional: Denies: Fever, Chills, Diaphoresis HEENT: Reports: Other (mouth is dry) Respiratory: Reports: No Symptoms Cardiovascular: Reports: No Symptoms GI/Abdominal: Reports: Abdominal Pain, Decreased Appetite, Nausea, Vomiting Musculoskeletal: Reports: No Symptoms Skin: Reports: No Symptoms Neurological: Reports: Dizziness ED EXAM, GENERAL - Physical Exam Exam: See Below General Appearance: Alert, No Apparent Distress Eye Exam: Bilateral Eye: PERRL Head: Atraumatic Neck: Supple Respiratory/Chest: No Respiratory Distress, Lungs Clear, Normal Breath Sounds Cardiovascular: Tachycardia GI/Abdominal: Soft, Tender (mild tenderness ) Extremities: Normal Inspection. No: Leg Pain, Redness Course - Vital Signs Last Recorded V/S: Last Vital Signs Temp 97.1 F 04/18/20 09:12 Pulse 140 H 04/18/20 09:12 Resp 18 04/18/20 09:12 BP 182/120 H 04/18/20 09:12 Pulse Ox 95 04/18/20 09:12 - Orders/Labs/Meds Orders: Active Orders 24 hr Category Date Time Status Peripheral IV Care [RC] . DIRECTED Care 04/18/20 09:26 Active A1C [GLYCOSYLATED HEMOGLOBIN,HGBA1C] [CHEM] Stat Lab 04/18/20 10:00 Received CORONAVIRUS COVID-19 KOBE [MOLEC] Stat Lab 04/18/20 13:30 Ordered Sodium Chloride 0.9% [Normal Saline] 1,000 ml Med 04/18/20 09:45 Active IV ONETIME Sodium Chloride 0.9% [Normal Saline] 1,000 ml Med 04/18/20 12:00 Active IV ONETIME Sodium Chloride 0.9% [Saline Flush] Med 04/18/20 09:25 Active 10 ml FLUSH ASDIRECTED PRN Peripheral IV Insertion Adult [OM.PC] Stat Oth 04/18/20 09:26 Ordered Medication Orders Sodium Chloride (Normal Saline) 1,000 mls @ 999 mls/hr IV ONETIME [facility] Last Admin: 04/18/20 10:09 Dose: 999 mls/hr Documented by: GO Sodium Chloride (Normal Saline) 1,000 mls @ 999 mls/hr IV ONETIME [facility] Last Admin: 04/18/20 11:55 Dose: 999 mls/hr Documented by: GO Sodium Chloride (Saline Flush) 10 ml FLUSH ASDIRECTED PRN PRN Reason: Keep Vein Open Last Admin: 04/18/20 10:07 Dose: 10 ml Documented by: GO Labs: Laboratory Tests 04/18/20 04/18/20 04/18/20 Range/Units 09:39 09:39 09:55 WBC 8.48 (3.98-10.04) K/mm3 RBC 4.46 (3.98-5.22) M/mm3 Hgb 15.5 (11.2-15.7) gm/dl Hct 45.5 H (34.1-44.9) % MCV 102.0 H (79.4-94.8) fl MCH 34.8 H (25.6-32.2) pg MCHC 34.1 (32.2-35.5) g/dl RDW Std Deviation 46.1 (36.4-46.3) fL Plt Count 224 (182-369) K/mm3 MPV 9.8 (9.4-12.3) fl Neut % (Auto) 67.3 (34.0-71.1) % Lymph % (Auto) 19.3 (19.3-51.7) % [place] % (Auto) 12.0 (4.7-12.5) % Eos % (Auto) 0.8 (0.7-5.8) Baso % (Auto) 0.2 (0.1-1.2) % Neut # (Auto) 5.70 (1.56-6.13) K/mm3 Lymph # (Auto) 1.64 (1.18-3.74) K/mm3 [place] # (Auto) 1.02 H (0.24-0.36) K/mm3 Eos # (Auto) 0.07 (0.04-0.36) K/mm3 Baso # (Auto) 0.02 (0.01-0.08) K/mm3 Sodium 126 L (136-145) mEq/L Potassium 2.7 L (3.5-5.1) mEq/L Chloride 88 L (98-107) mEq/L Carbon Dioxide 16 L D (21-32) mEq/L Anion Gap 24.7 H (5-15) BUN 2 L (7-18) mg/dL Creatinine 0.7 (0.55-1.02) mg/dL Est Cr Clr Drug Dosing 99.98 mL/min Estimated GFR (MDRD) > 60 (>60) mL/min BUN/Creatinine Ratio 2.9 L (14-18) Glucose 289 H (74-106) mg/dL Calcium 9.6 (8.5-10.1) mg/dL Total Bilirubin 1.0 (0.2-1.0) mg/dL AST 42 H (15-37) U/L ALT 37 (14-59) U/L Alkaline Phosphatase 119 H (46-116) U/L Total Protein 7.9 (6.4-8.2) g/dl Albumin 3.2 L (3.4-5.0) g/dl Globulin 4.7 gm/dL Albumin/Globulin Ratio 0.7 L (1-2) Lipase 2686 H (73-393) U/L Urine Color Light yellow (Yellow) Urine Appearance Clear (Clear) Urine pH 6.0 (5.0-8.0) Ur Specific [place] 1.010 (1.005-1.030) Urine Protein Negative (Negative) Urine Glucose (UA) 3+ H (Negative) Urine Ketones 2+ H (Negative) Urine Occult Blood Trace-intact H (Negative) Urine Nitrite Negative (Negative) Urine Bilirubin Negative (Negative) Urine Urobilinogen 0.2 (0.2-1.0) Ur Leukocyte Esterase Negative (Negative) Urine RBC 5-10 H (0-5) /hpf Urine WBC 0-5 (0-5) /hpf Ur Squamous Epith Cells 0-5 (0-5) /hpf Urine Bacteria Few (FEW) /hpf Urine Mucus Few (FEW) /hpf Ethyl Alcohol 0.09 (0.00) gm% Meds: Medications Generic Name Dose Route Start Last Admin Trade Name Freq PRN Reason Stop Dose Admin Sodium Chloride 1,000 mls @ 999 mls/hr 04/18/20 09:45 04/18/20 10:09 Normal Saline IV 999 mls/hr ONETIME GENNY Administration Sodium Chloride 1,000 mls @ 999 mls/hr 04/18/20 12:00 04/18/20 11:55 Normal Saline IV 999 mls/hr ONETIME GENNY Administration Sodium Chloride 10 ml 04/18/20 09:25 04/18/20 10:07 Saline Flush FLUSH 10 ml ASDIRECTED PRN Administration Keep Vein Open Discontinued Medications Generic Name Dose Route Start Last Admin Trade Name Freq PRN Reason Stop Dose Admin Famotidine 20 mg 04/18/20 09:35 04/18/20 10:07 Pepcid IVPUSH 04/18/20 09:36 20 mg ONETIME ONE Administration Hydromorphone HCl 0.5 mg 04/18/20 10:59 04/18/20 11:06 Dilaudid IVPUSH 04/18/20 11:00 0.5 mg ONETIME ONE Administration Hydromorphone HCl 0.5 mg 04/18/20 13:13 04/18/20 13:50 Dilaudid IVPUSH 04/18/20 13:14 0.5 mg ONETIME ONE Administration Potassium Chloride 10 meq/ 100 mls @ 50 mls/hr 04/18/20 11:48 04/18/20 11:57 Premix IV 04/18/20 13:47 50 mls/hr ASDIRECTED ONE Administration Lorazepam 1 mg 04/18/20 13:13 04/18/20 13:24 Ativan IVPUSH 04/18/20 13:14 1 mg ONETIME ONE Administration Ondansetron HCl 4 mg 04/18/20 09:35 04/18/20 10:05 Zofran IVPUSH 04/18/20 09:36 4 mg ONETIME ONE Administration - Re-Assessments/Exams Free Text/Narrative Re-Assessment/Exam: 04/18/20 13:22 Pain started getting worse shortly after time of exam. Gave an initial 0.5 mg dilaudid IV and now a 2nd dose due to pain once again worsening a short time ago. Have given zofran 4 mg IV. K+ did come back at 2.7. anion gap markedly elevated at around 24, Co2 16. Glucose 286. Not known to be diabetic. Treating with more IV fluid, IV K+. She is not a good candidate to go home, will try get her admitted. We were on diversion but sounds like a bed has opened up. Departure - Departure Time of Disposition: 13:20 Disposition: Admitted As Inpatient 65 Condition: Serious Clinical Impression: Dehydration, Hypokalemia Pancreatitis Qualifiers: Chronicity: acute Pancreatitis type: alcohol induced Acute pancreatitis complication: unspecified Qualified Code(s): K85.20 - Alcohol induced acute pancreatitis without necrosis or infection - Discharge Information Referrals: Kalie Joy PA-C [Primary Care Provider] - Forms: ED Department Discharge Sepsis Event Note (ED) - Evaluation Sepsis Screening Result: No Definite Risk - Focused Exam Vital Signs: Vital Signs Temp Pulse Resp BP Pulse Ox 04/18/20 09:12 97.1 F 140 H 18 182/120 H 95 ED Communication - Discussed Case With (1) Discussed Case With (1): Admitting Provider (Dr Douglass, decision to admit at about 13:20.) - My Orders Last 24 Hours: My Active Orders 04/18/20 09:25 Sodium Chloride 0.9% [Saline Flush] 10 ml FLUSH ASDIRECTED PRN 04/18/20 09:26 Peripheral IV Care [RC] . DIRECTED Peripheral IV Insertion Adult [OM.PC] Stat 04/18/20 09:45 Sodium Chloride 0.9% [Normal Saline] 1,000 ml IV ONETIME 04/18/20 10:00 A1C [GLYCOSYLATED HEMOGLOBIN,HGBA1C] [CHEM] Stat 04/18/20 12:00 Sodium Chloride 0.9% [Normal Saline] 1,000 ml IV ONETIME 04/18/20 13:30 CORONAVIRUS COVID-19 KOBE [MOLEC] Stat - Assessment/Plan Last 24 Hours: My Active Orders 04/18/20 09:25 Sodium Chloride 0.9% [Saline Flush] 10 ml FLUSH ASDIRECTED PRN 04/18/20 09:26 Peripheral IV Care [RC] . DIRECTED Peripheral IV Insertion Adult [OM.PC] Stat 04/18/20 09:45 Sodium Chloride 0.9% [Normal Saline] 1,000 ml IV ONETIME 04/18/20 10:00 A1C [GLYCOSYLATED HEMOGLOBIN,HGBA1C] [CHEM] Stat 04/18/20 12:00 Sodium Chloride 0.9% [Normal Saline] 1,000 ml IV ONETIME 04/18/20 13:30 CORONAVIRUS COVID-19 KOBE [MOLEC] Stat
[2020-04-18] MEDS ORDERED: LORazepam 2 MG/ML SDV IVPUSH ONE (13:13)
[2020-04-18] MEDS ORDERED: Albuterol/Ipratropium 3.0-0.5 MG/3 ML Neb Soln NEB PRN (13:56)
[2020-04-18] MEDS ORDERED: Ondansetron 4 MG/2 ML SDV IV PRN (13:56)
[2020-04-18] MEDS ORDERED: 50% Dextrose in Water 50 ML Syringe IV PRN (13:56)
[2020-04-18] MEDS ORDERED: Glucagon,Human Recombinant 1 MG Vial IM PRN (13:56)
[2020-04-18] MEDS ORDERED: LORazepam 2 MG/ML SDV IV PRN (13:56)
--- NOTE | 2020-04-18 14:07 | PCM.HP.2 ---
H&P History of Present Illness - General Date of Service: 04/18/20 Admit Problem/Dx: Admission Diagnosis/Problem Admission Diagnosis/Problem Pancreatitis Source of Information: Patient History Limitations: Reports: No Limitations - History of Present Illness Initial Comments - Free Text/Narative: The patient is a 35-year-old lady who had presented to the emergency department with abdominal pain, nausea and intermittent vomiting. The patient has been an abuser of alcohol. She also describes the pain as being in her back and radiating around to the sides. The patient says that she has had some vomiting reported with this. She also says that she has had problems with withdrawal signs went without alcohol. The patient's alcohol level was found to be 0.09 in the emergency department. The patient's lipase in the emergency department was also elevated at 2686. The patient has not had pancreatitis before. Patient says that her abdominal pain has been aggravated by food and relieved by fasting. Onset of Symptoms: Reports: Sudden Duration of Symptoms: Reports: Day(s):, Getting Worse Quality: Reports: Stabbing Severity: Moderate Improves with: Reports: Rest Worsens with: Reports: Eating Context: Reports: Other (Alcohol consumption) Abdomen Pain Score (Numeric/FACES): 2 - Related Data Allergies/Adverse Reactions: Allergies Allergy/AdvReac Type Severity Reaction Status Date / Time No Known Allergies Allergy Verified 04/18/20 09:17 Home Medications: Home Meds . [No Known Home Meds] 11/04/17 [History] Past Medical History - Past Health History Medical/Surgical History: Denies Medical/Surgical History HEENT History: Reports: Impaired Vision Other HEENT History: wears corrective lenses Cardiovascular History: Reports: None Respiratory History: Reports: None Psychiatric History: Reports: Addiction, Anxiety, Panic Attack Endocrine/Metabolic History: Reports: Diabetes, Type II, Obesity/BMI 30+ - Past Surgical History GI Surgical History: Reports: Cholecystectomy Social & Family History - Family History Family Medical History: Noncontributory - Tobacco Use Tobacco Use Status *Q: Current Every Day Tobacco User Years of Tobacco use: 20 Packs/Tins Daily: 1 - Caffeine Use Caffeine Use: Reports: None - Recreational Drug Use Recreational Drug Use: Yes Recreational Drug Type: Reports: Marijuana/Hashish H&P Review of Systems - Review of Systems: Review Of Systems: See Below General: Reports: Malaise, Weakness, Decreased Appetite HEENT: Reports: No Symptoms Pulmonary: Reports: Shortness of Breath Cardiovascular: Reports: No Symptoms Gastrointestinal: Reports: Abdominal Pain, Anorexia, Nausea, Vomiting Genitourinary: Reports: No Symptoms Musculoskeletal: Reports: No Symptoms Skin: Reports: No Symptoms Psychiatric: Reports: No Symptoms Neurological: Reports: No Symptoms Hematologic/Lymphatic: Reports: No Symptoms Immunologic: Reports: No Symptoms Exam - Exam Exam: See Below - Vital Signs Vital Signs: Last Vital Signs Temp 36.2 C 04/18/20 09:12 Pulse 140 H 04/18/20 09:12 Resp 18 04/18/20 09:12 BP 182/120 H 04/18/20 09:12 Pulse Ox 95 04/18/20 09:12 Weight: 81.647 kg - Exam Quality Assessment: DVT Prophylaxis. No: Supplemental Oxygen General: Alert, Oriented, Cooperative HEENT: Conjunctiva Clear, EACs Clear, EOMI, Hearing Intact, Mucosa Moist & [place] Neck: Supple, Trachea Midline Lungs: Clear to Auscultation, Normal Respiratory Effort Cardiovascular: Regular Rate, Regular Rhythm GI/Abdominal Exam: Normal Bowel Sounds, Soft, No Distention, Tender (Tender mid abdomen). No: Guarding, Rigid, Rebound (Female) Exam: Deferred Rectal (Female) Exam: Normal Exam, Normal Rectal Tone Back Exam: Normal Inspection, Full Range of Motion Extremities: Normal Inspection, No Pedal Edema Skin: Warm, Dry, Intact Neurological: Cranial Nerves Intact Neuro Extensive - Mental Status: Alert, Oriented x3 Psychiatric: Alert, Normal Affect, Normal Mood - Patient Data Lab Results Last 24 hrs: Laboratory Results - last 24 hr 04/18/20 04/18/20 04/18/20 Range/Units 09:39 09:39 09:55 WBC 8.48 (3.98-10.04) K/mm3 RBC 4.46 (3.98-5.22) M/mm3 Hgb 15.5 (11.2-15.7) gm/dl Hct 45.5 H (34.1-44.9) % MCV 102.0 H (79.4-94.8) fl MCH 34.8 H (25.6-32.2) pg MCHC 34.1 (32.2-35.5) g/dl RDW Std Deviation 46.1 (36.4-46.3) fL Plt Count 224 (182-369) K/mm3 MPV 9.8 (9.4-12.3) fl Neut % (Auto) 67.3 (34.0-71.1) % Lymph % (Auto) 19.3 (19.3-51.7) % [place] % (Auto) 12.0 (4.7-12.5) % Eos % (Auto) 0.8 (0.7-5.8) Baso % (Auto) 0.2 (0.1-1.2) % Neut # (Auto) 5.70 (1.56-6.13) K/mm3 Lymph # (Auto) 1.64 (1.18-3.74) K/mm3 [place] # (Auto) 1.02 H (0.24-0.36) K/mm3 Eos # (Auto) 0.07 (0.04-0.36) K/mm3 Baso # (Auto) 0.02 (0.01-0.08) K/mm3 Sodium 126 L (136-145) mEq/L Potassium 2.7 L (3.5-5.1) mEq/L Chloride 88 L (98-107) mEq/L Carbon Dioxide 16 L D (21-32) mEq/L Anion Gap 24.7 H (5-15) BUN 2 L (7-18) mg/dL Creatinine 0.7 (0.55-1.02) mg/dL Est Cr Clr Drug Dosing 99.98 mL/min Estimated GFR (MDRD) > 60 (>60) mL/min BUN/Creatinine Ratio 2.9 L (14-18) Glucose 289 H (74-106) mg/dL Hemoglobin A1c (4.50-6.20) % Calcium 9.6 (8.5-10.1) mg/dL Total Bilirubin 1.0 (0.2-1.0) mg/dL AST 42 H (15-37) U/L ALT 37 (14-59) U/L Alkaline Phosphatase 119 H (46-116) U/L Total Protein 7.9 (6.4-8.2) g/dl Albumin 3.2 L (3.4-5.0) g/dl Globulin 4.7 gm/dL Albumin/Globulin Ratio 0.7 L (1-2) Lipase 2686 H (73-393) U/L Urine Color Light yellow (Yellow) Urine Appearance Clear (Clear) Urine pH 6.0 (5.0-8.0) Ur Specific [place] 1.010 (1.005-1.030) Urine Protein Negative (Negative) Urine Glucose (UA) 3+ H (Negative) Urine Ketones 2+ H (Negative) Urine Occult Blood Trace-intact H (Negative) Urine Nitrite Negative (Negative) Urine Bilirubin Negative (Negative) Urine Urobilinogen 0.2 (0.2-1.0) Ur Leukocyte Esterase Negative (Negative) Urine RBC 5-10 H (0-5) /hpf Urine WBC 0-5 (0-5) /hpf Ur Squamous Epith Cells 0-5 (0-5) /hpf Urine Bacteria Few (FEW) /hpf Urine Mucus Few (FEW) /hpf Ethyl Alcohol 0.09 (0.00) gm% 04/18/20 Range/Units 10:00 WBC (3.98-10.04) K/mm3 RBC (3.98-5.22) M/mm3 Hgb (11.2-15.7) gm/dl Hct (34.1-44.9) % MCV (79.4-94.8) fl MCH (25.6-32.2) pg MCHC (32.2-35.5) g/dl RDW Std Deviation (36.4-46.3) fL Plt Count (182-369) K/mm3 MPV (9.4-12.3) fl Neut % (Auto) (34.0-71.1) % Lymph % (Auto) (19.3-51.7) % [place] % (Auto) (4.7-12.5) % Eos % (Auto) (0.7-5.8) Baso % (Auto) (0.1-1.2) % Neut # (Auto) (1.56-6.13) K/mm3 Lymph # (Auto) (1.18-3.74) K/mm3 [place] # (Auto) (0.24-0.36) K/mm3 Eos # (Auto) (0.04-0.36) K/mm3 Baso # (Auto) (0.01-0.08) K/mm3 Sodium (136-145) mEq/L Potassium (3.5-5.1) mEq/L Chloride (98-107) mEq/L Carbon Dioxide (21-32) mEq/L Anion Gap (5-15) BUN (7-18) mg/dL Creatinine (0.55-1.02) mg/dL Est Cr Clr Drug Dosing mL/min Estimated GFR (MDRD) (>60) mL/min BUN/Creatinine Ratio (14-18) Glucose (74-106) mg/dL Hemoglobin A1c 9.00 H (4.50-6.20) % Calcium (8.5-10.1) mg/dL Total Bilirubin (0.2-1.0) mg/dL AST (15-37) U/L ALT (14-59) U/L Alkaline Phosphatase (46-116) U/L Total Protein (6.4-8.2) g/dl Albumin (3.4-5.0) g/dl Globulin gm/dL Albumin/Globulin Ratio (1-2) Lipase (73-393) U/L Urine Color (Yellow) Urine Appearance (Clear) Urine pH (5.0-8.0) Ur Specific [place] (1.005-1.030) Urine Protein (Negative) Urine Glucose (UA) (Negative) Urine Ketones (Negative) Urine Occult Blood (Negative) Urine Nitrite (Negative) Urine Bilirubin (Negative) Urine Urobilinogen (0.2-1.0) Ur Leukocyte Esterase (Negative) Urine RBC (0-5) /hpf Urine WBC (0-5) /hpf Ur Squamous Epith Cells (0-5) /hpf Urine Bacteria (FEW) /hpf Urine Mucus (FEW) /hpf Ethyl Alcohol (0.00) gm% Result Diagrams: 04/19/20 05:40 04/19/20 05:40 Sepsis Event Note - Evaluation Sepsis Screening Result: No Definite Risk - Focused Exam Vital Signs: Vital Signs Temp Pulse Resp BP Pulse Ox 04/18/20 09:12 36.2 C 140 H 18 182/120 H 95 - Problem List (1) Dehydration SNOMED Code(s): 40844040 ICD Code: E86.0 - DEHYDRATION Status: Acute Current Visit: Yes (2) Pancreatitis SNOMED Code(s): 23779148 ICD Code: K85.90 - ACUTE PANCREATITIS WITHOUT NECROSIS OR INFECTION, UNSP Status: Acute Current Visit: Yes Qualifiers: Chronicity: acute Pancreatitis type: alcohol induced Acute pancreatitis complication: unspecified Qualified Code(s): K85.20 - Alcohol induced acute pancreatitis without necrosis or infection (3) Alcohol withdrawal syndrome SNOMED Code(s): 402155370 ICD Code: F10.239 - ALCOHOL DEPENDENCE WITH WITHDRAWAL, UNSPECIFIED Status: Acute Priority: High Current Visit: No Qualifiers: Complication of substance-induced condition: with unspecified complication Qualified Code(s): F10.239 - Alcohol dependence with withdrawal, unspecified (4) Anxiety SNOMED Code(s): 67432569 ICD Code: F41.9 - ANXIETY DISORDER, UNSPECIFIED Status: Acute Current Visit: No Problem List Initiated/Reviewed/Updated: Yes Orders Last 24hrs: Active Orders 24 hr Category Date Time Status Patient Status [ADT] Routine ADT 04/18/20 13:56 Ordered Blood Glucose Check, Bedside [RC] QIDACANDBED Care 04/18/20 13:56 Ordered Blood Glucose Check, Bedside [RC] QIDACANDBED Care 04/18/20 13:56 Ordered Blood Glucose Check, Bedside [RC] QIDACANDBED Care 04/18/20 13:56 Ordered CIWAA Assessment [RC] Q4H Care 04/18/20 13:56 Ordered Cardiac Monitoring [RC] CONTINUOUS Care 04/18/20 13:58 Ordered Diabetes Education [RC] Click to Edit Care 04/18/20 13:59 Ordered Oxygen Therapy [RC] PRN Care 04/18/20 13:56 Ordered Peripheral IV Care [RC] . DIRECTED Care 04/18/20 09:26 Active RT Aerosol Therapy [RC] ASDIRECTED Care 04/18/20 14:05 Ordered Up ad Rebecca [RC] ASDIRECTED Care 04/18/20 13:56 Ordered VTE/DVT Education [RC] PER UNIT ROUTINE Care 04/18/20 13:56 Ordered Vital Signs [RC] Q4H Care 04/18/20 13:56 Ordered Consult to Diabetic Nurse Specialist [CONS] Routine Cons 04/18/20 13:56 Ordered Consult to Environmental Consultant [CONS] Routine Cons 04/18/20 13:56 Ordered Nothing per Oral Now Diet [DIET] Diet 04/18/20 Dinner Ordered CBC WITH AUTO DIFF [HEME] AM Lab 04/19/20 05:11 Ordered COMPREHENSIVE METABOLIC PN,CMP [CHEM] AM Lab 04/19/20 05:11 Ordered CORONAVIRUS COVID-19 KOBE [MOLEC] Stat Lab 04/18/20 13:30 Ordered INR,PT,PROTHROMBIN TIME [COAG] AM Lab 04/19/20 05:11 Ordered MAGNESIUM [CHEM] Routine Lab 04/18/20 13:56 Ordered Albuterol/Ipratropium [DuoNeb 3.0-0.5 MG/3 ML] Med 04/18/20 13:56 Ordered 3 ml NEB Q4H PRN Dextrose 50% in Water Med 04/18/20 13:56 Ordered 50 ml IV ASDIRECTED PRN Enoxaparin [Lovenox] Med 04/18/20 14:00 Ordered 40 mg SUBCUT DAILY Glucagon,Human Recombinant [GlucaGen] Med 04/18/20 13:56 Ordered 1 mg IM ASDIRECTED PRN HYDROmorphone [Dilaudid] Med 04/18/20 13:56 Ordered 0.5 mg IVPUSH Q2H PRN Insulin Regular, Human [HumuLIN R] Med 04/18/20 19:00 Ordered See Protocol SUBCUT TIDPC LORazepam [Ativan] Med 04/18/20 13:56 Ordered 1 mg IV Q6H PRN Nicotine [Habitrol] Med 04/18/20 14:00 Ordered 21 mg TRDERM DAILY Ondansetron [Zofran] Med 04/18/20 13:56 Ordered 4 mg IV Q6H PRN Sodium Chloride 0.9% @ 125 MLS/HR (1000ml) Med 04/18/20 14:00 Ordered Sodium Chloride 0.9% [Normal Saline] 1,000 ml IV ASDIRECTED Sodium Chloride 0.9% [Normal Saline] 1,000 ml Med 04/18/20 09:45 Active IV ONETIME Sodium Chloride 0.9% [Normal Saline] 1,000 ml Med 04/18/20 12:00 Active IV ONETIME Sodium Chloride 0.9% [Saline Flush] Med 04/18/20 09:25 Active 10 ml FLUSH ASDIRECTED PRN Glucose Management Sub Q Reflex [OM.PC] Click to Edit Oth 04/18/20 13:56 Ordered Peripheral IV Insertion Adult [OM.PC] Stat Oth 04/18/20 09:26 Ordered Resuscitation Status Routine Resus Stat 04/18/20 13:56 Ordered Medication Orders Sodium Chloride (Normal Saline) 1,000 mls @ 999 mls/hr IV ONETIME GENNY Last Admin: 04/18/20 10:09 Dose: 999 mls/hr Documented by: GO Sodium Chloride (Normal Saline) 1,000 mls @ 999 mls/hr IV ONETIME GENNY Last Admin: 04/18/20 11:55 Dose: 999 mls/hr Documented by: GO Sodium Chloride (Saline Flush) 10 ml FLUSH ASDIRECTED PRN PRN Reason: Keep Vein Open Last Admin: 04/18/20 10:07 Dose: 10 ml Documented by: GO Assessment/Plan Comment:: The patient is a 35-year-old lady who has been admitted to acute hospitalization out of concern for pancreatitis due to alcohol consumption. The patient will be kept n.p.o. She will have fluids consisting of normal saline IV at 100 mL/h. Patient will also be kept on CIWA protocol. I have also ordered Ativan 1 mg every 4 hours as necessary for seizures or anxiety. The patient will also be kept on telemetry. The patient also has been placed on DVT protocol with the use of Lovenox 40 mg subcu daily. The patient also has electrolyte abnormalities and these will be corrected as needed. She has been encouraged to ambulate. It also looks at this time with the patient is a full diabetic. The hemoglobin A1c has been ordered. She will be kept on sliding scale insulin and when she is able to intake foods she will be transitioned to appropriate diabetic diet. Patient has been strongly advised that she should not have alcohol anymore. The patient should be appropriate for discharge in 2 to 3 days. - Mortality Measure Prognosis:: Good
[2020-04-18] MEDS ORDERED: Magnesium Sulfate/Water 2 GM/50 ML Premix Bag IV ONE (14:29)
[2020-04-18] MEDS: Enoxaparin 40 MG/0.4 ML Syringe SUBCUT SCH (14:50)
[2020-04-18] MEDS: Pantoprazole 40 MG Vial IVPUSH SCH (14:55)
[2020-04-18] MEDS: Sodium Chloride 0.9% 1,000 ML IV SCH ×2 (14:58→22:51)
[2020-04-18] MEDS ORDERED: Magnesium Sulfate/Water 2 GM/50 ML BAG IV ONE (15:00)
[2020-04-18] MEDS: Nicotine 21 MG/24 Hr Patch TRDERM SCH (16:11)
[2020-04-18] MEDS: HYDROmorphone 0.5 MG/0.5 ML Syringe IVPUSH PRN ×3 (16:11→21:07)
[2020-04-18] MEDS ORDERED: Insulin Regular, Human 100 Units/ML 3 ML Vial SUBCUT SCH (19:00)
[2020-04-18] MEDS ORDERED: LORazepam 2 MG/ML SDV IVPUSH PRN (19:52)
[2020-04-19] MEDS: Potassium Chloride 10 MEQ in Premix Bag 1 BAG IV SCH ×2 (00:17→01:33)
[2020-04-19] MEDS: HYDROmorphone 0.5 MG/0.5 ML Syringe IVPUSH PRN ×10 (00:18→23:18)
[2020-04-19] MEDS: Pantoprazole 40 MG Vial IVPUSH SCH ×2 (02:42→14:25)
[2020-04-19] MEDS: Sodium Chloride 0.9% 1,000 ML IV SCH ×3 (07:12→23:28)
[2020-04-19] MEDS: Enoxaparin 40 MG/0.4 ML Syringe SUBCUT SCH (08:44)
[2020-04-19] MEDS: Nicotine 21 MG/24 Hr Patch TRDERM SCH ×2 (08:45→19:00)
[2020-04-19] MEDS: Insulin Regular, Human 100 Units/ML 3 ML Vial SUBCUT SCH ×3 (08:46→17:07)
--- NOTE | 2020-04-19 11:06 | PCM.PN ---
- General Info Date of Service: 04/19/20 Admission Dx/Problem (Free Text): Admission Diagnosis/Problem Admission Diagnosis/Problem Pancreatitis Subjective Update: The patient is a 35-year-old lady who was admitted yesterday secondary to alcoholic pancreatitis. The patient today says that she is doing better. She has less pain. She has been kept n.p.o. She has no complaints today except wanting to eat. Functional Status: Reports: Pain Controlled. Denies: Tolerating Diet - Review of Systems General: Reports: No Symptoms HEENT: Reports: No Symptoms Pulmonary: Reports: No Symptoms Cardiovascular: Reports: No Symptoms Gastrointestinal: Reports: Abdominal Pain Genitourinary: Reports: No Symptoms Musculoskeletal: Reports: No Symptoms Skin: Reports: No Symptoms Neurological: Reports: No Symptoms Psychiatric: Reports: No Symptoms - Patient Data Vitals - Most Recent: Last Vital Signs Temp 36.7 C 04/19/20 07:58 Pulse 98 04/19/20 07:58 Resp 14 04/19/20 07:58 BP 145/95 H 04/19/20 07:58 Pulse Ox 97 04/19/20 07:58 Weight - Most Recent: 80.966 kg I&O - Last 24 Hours: Intake & Output 04/18/20 04/19/20 04/19/20 22:59 06:59 14:59 Intake Total 3992 Output Total 400 Balance 3592 Lab Results Last 24 Hours: Laboratory Results - last 24 hr 04/18/20 04/18/20 04/18/20 Range/Units 09:55 10:00 10:00 WBC (3.98-10.04) K/mm3 RBC (3.98-5.22) M/mm3 Hgb (11.2-15.7) gm/dl Hct (34.1-44.9) % MCV (79.4-94.8) fl MCH (25.6-32.2) pg MCHC (32.2-35.5) g/dl RDW Std Deviation (36.4-46.3) fL Plt Count (182-369) K/mm3 MPV (9.4-12.3) fl Neut % (Auto) (34.0-71.1) % Lymph % (Auto) (19.3-51.7) % [place] % (Auto) (4.7-12.5) % Eos % (Auto) (0.7-5.8) Baso % (Auto) (0.1-1.2) % Neut # (Auto) (1.56-6.13) K/mm3 Lymph # (Auto) (1.18-3.74) K/mm3 [place] # (Auto) (0.24-0.36) K/mm3 Eos # (Auto) (0.04-0.36) K/mm3 Baso # (Auto) (0.01-0.08) K/mm3 Manual Slide Review PT (9.7-12.0) SECONDS INR Sodium (136-145) mEq/L Potassium (3.5-5.1) mEq/L Chloride (98-107) mEq/L Carbon Dioxide (21-32) mEq/L Anion Gap (5-15) BUN (7-18) mg/dL Creatinine (0.55-1.02) mg/dL Est Cr Clr Drug Dosing mL/min Estimated GFR (MDRD) (>60) mL/min BUN/Creatinine Ratio (14-18) Glucose (74-106) mg/dL POC Glucose (70-105) mg/dL Hemoglobin A1c 9.00 H (4.50-6.20) % Calcium (8.5-10.1) mg/dL Magnesium 1.5 L (1.8-2.4) mg/dl Total Bilirubin (0.2-1.0) mg/dL AST (15-37) U/L ALT (14-59) U/L Alkaline Phosphatase (46-116) U/L Total Protein (6.4-8.2) g/dl Albumin (3.4-5.0) g/dl Globulin gm/dL Albumin/Globulin Ratio (1-2) Urine Color Light yellow (Yellow) Urine Appearance Clear (Clear) Urine pH 6.0 (5.0-8.0) Ur Specific [place] 1.010 (1.005-1.030) Urine Protein Negative (Negative) Urine Glucose (UA) 3+ H (Negative) Urine Ketones 2+ H (Negative) Urine Occult Blood Trace-intact H (Negative) Urine Nitrite Negative (Negative) Urine Bilirubin Negative (Negative) Urine Urobilinogen 0.2 (0.2-1.0) Ur Leukocyte Esterase Negative (Negative) Urine RBC 5-10 H (0-5) /hpf Urine WBC 0-5 (0-5) /hpf Ur Squamous Epith Cells 0-5 (0-5) /hpf Urine Bacteria Few (FEW) /hpf Urine Mucus Few (FEW) /hpf SARS-CoV-2 RNA (KOBE) (NEGATIVE) 04/18/20 04/18/20 04/18/20 Range/Units 13:55 14:15 18:50 WBC (3.98-10.04) K/mm3 RBC (3.98-5.22) M/mm3 Hgb (11.2-15.7) gm/dl Hct (34.1-44.9) % MCV (79.4-94.8) fl MCH (25.6-32.2) pg MCHC (32.2-35.5) g/dl RDW Std Deviation (36.4-46.3) fL Plt Count (182-369) K/mm3 MPV (9.4-12.3) fl Neut % (Auto) (34.0-71.1) % Lymph % (Auto) (19.3-51.7) % [place] % (Auto) (4.7-12.5) % Eos % (Auto) (0.7-5.8) Baso % (Auto) (0.1-1.2) % Neut # (Auto) (1.56-6.13) K/mm3 Lymph # (Auto) (1.18-3.74) K/mm3 [place] # (Auto) (0.24-0.36) K/mm3 Eos # (Auto) (0.04-0.36) K/mm3 Baso # (Auto) (0.01-0.08) K/mm3 Manual Slide Review PT (9.7-12.0) SECONDS INR Sodium (136-145) mEq/L Potassium (3.5-5.1) mEq/L Chloride (98-107) mEq/L Carbon Dioxide (21-32) mEq/L Anion Gap (5-15) BUN (7-18) mg/dL Creatinine (0.55-1.02) mg/dL Est Cr Clr Drug Dosing mL/min Estimated GFR (MDRD) (>60) mL/min BUN/Creatinine Ratio (14-18) Glucose (74-106) mg/dL POC Glucose 167 H 205 H (70-105) mg/dL Hemoglobin A1c (4.50-6.20) % Calcium (8.5-10.1) mg/dL Magnesium (1.8-2.4) mg/dl Total Bilirubin (0.2-1.0) mg/dL AST (15-37) U/L ALT (14-59) U/L Alkaline Phosphatase (46-116) U/L Total Protein (6.4-8.2) g/dl Albumin (3.4-5.0) g/dl Globulin gm/dL Albumin/Globulin Ratio (1-2) Urine Color (Yellow) Urine Appearance (Clear) Urine pH (5.0-8.0) Ur Specific [place] (1.005-1.030) Urine Protein (Negative) Urine Glucose (UA) (Negative) Urine Ketones (Negative) Urine Occult Blood (Negative) Urine Nitrite (Negative) Urine Bilirubin (Negative) Urine Urobilinogen (0.2-1.0) Ur Leukocyte Esterase (Negative) Urine RBC (0-5) /hpf Urine WBC (0-5) /hpf Ur Squamous Epith Cells (0-5) /hpf Urine Bacteria (FEW) /hpf Urine Mucus (FEW) /hpf SARS-CoV-2 RNA (KOBE) Negative (NEGATIVE) 04/18/20 04/19/20 04/19/20 Range/Units 22:46 05:40 05:40 WBC 5.10 (3.98-10.04) K/mm3 RBC 3.88 L (3.98-5.22) M/mm3 Hgb 13.3 D (11.2-15.7) gm/dl Hct 41.5 (34.1-44.9) % MCV 107.0 H D (79.4-94.8) fl MCH 34.3 H (25.6-32.2) pg MCHC 32.0 L (32.2-35.5) g/dl RDW Std Deviation 48.9 H (36.4-46.3) fL Plt Count 179 L (182-369) K/mm3 MPV 10.0 (9.4-12.3) fl Neut % (Auto) 60.2 (34.0-71.1) % Lymph % (Auto) 28.2 (19.3-51.7) % [place] % (Auto) 9.2 (4.7-12.5) % Eos % (Auto) 1.8 (0.7-5.8) Baso % (Auto) 0.4 (0.1-1.2) % Neut # (Auto) 3.07 (1.56-6.13) K/mm3 Lymph # (Auto) 1.44 (1.18-3.74) K/mm3 [place] # (Auto) 0.47 H (0.24-0.36) K/mm3 Eos # (Auto) 0.09 (0.04-0.36) K/mm3 Baso # (Auto) 0.02 (0.01-0.08) K/mm3 Manual Slide Review Abnormal smear PT 11.7 (9.7-12.0) SECONDS INR 1.10 Sodium (136-145) mEq/L Potassium (3.5-5.1) mEq/L Chloride (98-107) mEq/L Carbon Dioxide (21-32) mEq/L Anion Gap (5-15) BUN (7-18) mg/dL Creatinine (0.55-1.02) mg/dL Est Cr Clr Drug Dosing mL/min Estimated GFR (MDRD) (>60) mL/min BUN/Creatinine Ratio (14-18) Glucose (74-106) mg/dL POC Glucose 180 H (70-105) mg/dL Hemoglobin A1c (4.50-6.20) % Calcium (8.5-10.1) mg/dL Magnesium (1.8-2.4) mg/dl Total Bilirubin (0.2-1.0) mg/dL AST (15-37) U/L ALT (14-59) U/L Alkaline Phosphatase (46-116) U/L Total Protein (6.4-8.2) g/dl Albumin (3.4-5.0) g/dl Globulin gm/dL Albumin/Globulin Ratio (1-2) Urine Color (Yellow) Urine Appearance (Clear) Urine pH (5.0-8.0) Ur Specific [place] (1.005-1.030) Urine Protein (Negative) Urine Glucose (UA) (Negative) Urine Ketones (Negative) Urine Occult Blood (Negative) Urine Nitrite (Negative) Urine Bilirubin (Negative) Urine Urobilinogen (0.2-1.0) Ur Leukocyte Esterase (Negative) Urine RBC (0-5) /hpf Urine WBC (0-5) /hpf Ur Squamous Epith Cells (0-5) /hpf Urine Bacteria (FEW) /hpf Urine Mucus (FEW) /hpf SARS-CoV-2 RNA (KOBE) (NEGATIVE) 04/19/20 04/19/20 Range/Units 05:40 06:30 WBC (3.98-10.04) K/mm3 RBC (3.98-5.22) M/mm3 Hgb (11.2-15.7) gm/dl Hct (34.1-44.9) % MCV (79.4-94.8) fl MCH (25.6-32.2) pg MCHC (32.2-35.5) g/dl RDW Std Deviation (36.4-46.3) fL Plt Count (182-369) K/mm3 MPV (9.4-12.3) fl Neut % (Auto) (34.0-71.1) % Lymph % (Auto) (19.3-51.7) % [place] % (Auto) (4.7-12.5) % Eos % (Auto) (0.7-5.8) Baso % (Auto) (0.1-1.2) % Neut # (Auto) (1.56-6.13) K/mm3 Lymph # (Auto) (1.18-3.74) K/mm3 [place] # (Auto) (0.24-0.36) K/mm3 Eos # (Auto) (0.04-0.36) K/mm3 Baso # (Auto) (0.01-0.08) K/mm3 Manual Slide Review PT (9.7-12.0) SECONDS INR Sodium 133 L (136-145) mEq/L Potassium 3.4 L (3.5-5.1) mEq/L Chloride 99 (98-107) mEq/L Carbon Dioxide 21 (21-32) mEq/L Anion Gap 16.4 H (5-15) BUN 2 L (7-18) mg/dL Creatinine 0.6 (0.55-1.02) mg/dL Est Cr Clr Drug Dosing 116.45 mL/min Estimated GFR (MDRD) > 60 (>60) mL/min BUN/Creatinine Ratio 3.3 L (14-18) Glucose 153 H (74-106) mg/dL POC Glucose 161 H (70-105) mg/dL Hemoglobin A1c (4.50-6.20) % Calcium 8.3 L (8.5-10.1) mg/dL Magnesium (1.8-2.4) mg/dl Total Bilirubin 0.8 (0.2-1.0) mg/dL AST 40 H (15-37) U/L ALT 37 (14-59) U/L Alkaline Phosphatase 93 (46-116) U/L Total Protein 6.6 (6.4-8.2) g/dl Albumin 2.6 L (3.4-5.0) g/dl Globulin 4.0 gm/dL Albumin/Globulin Ratio 0.7 L (1-2) Urine Color (Yellow) Urine Appearance (Clear) Urine pH (5.0-8.0) Ur Specific [place] (1.005-1.030) Urine Protein (Negative) Urine Glucose (UA) (Negative) Urine Ketones (Negative) Urine Occult Blood (Negative) Urine Nitrite (Negative) Urine Bilirubin (Negative) Urine Urobilinogen (0.2-1.0) Ur Leukocyte Esterase (Negative) Urine RBC (0-5) /hpf Urine WBC (0-5) /hpf Ur Squamous Epith Cells (0-5) /hpf Urine Bacteria (FEW) /hpf Urine Mucus (FEW) /hpf SARS-CoV-2 RNA (KOBE) (NEGATIVE) Med Orders - Current: Current Medications Albuterol/Ipratropium (Duoneb 3.0-0.5 Mg/3 Ml) 3 ml NEB Q4H PRN PRN Reason: Shortness Of Breath/wheezing Dextrose/Water (Dextrose 50% In Water) 50 ml IV ASDIRECTED PRN PRN Reason: Hypoglycemia Enoxaparin Sodium (Lovenox) 40 mg SUBCUT DAILY [facility] Last Admin: 04/19/20 08:44 Dose: 40 mg Documented by: Glucagon (Glucagen) 1 mg IM ASDIRECTED PRN PRN Reason: Hypoglycemia Hydromorphone HCl (Dilaudid) 0.5 mg IVPUSH Q2H PRN PRN Reason: Pain (severe 7-10) Last Admin: 04/19/20 08:55 Dose: 0.5 mg Documented by: Sodium Chloride (Normal Saline) 1,000 mls @ 125 mls/hr IV ASDIRECTED [facility] Last Admin: 04/19/20 07:12 Dose: 125 mls/hr Documented by: Insulin Human Regular (Humulin R) 0 unit SUBCUT TID@0700,1100,1700 [facility]; Protocol Last Admin: 04/19/20 08:46 Dose: 1 unit Documented by: Lorazepam (Ativan) 0 mg IVPUSH Q4H PRN; Protocol PRN Reason: Withdrawal Symptoms Miscellaneous Information (Remove Patch) 0 ea TRDERM DAILY [facility] Last Admin: 04/19/20 08:45 Dose: 1 ea Documented by: Nicotine (Habitrol) 21 mg TRDERM DAILY [facility] Last Admin: 04/19/20 08:45 Dose: 21 mg Documented by: Ondansetron HCl (Zofran) 4 mg IV Q6H PRN PRN Reason: Nausea/Vomiting Pantoprazole Sodium (Protonix Iv) 40 mg IVPUSH Q12H [facility] Last Admin: 04/19/20 02:42 Dose: 40 mg Documented by: Sodium Chloride (Saline Flush) 10 ml FLUSH ASDIRECTED PRN PRN Reason: Keep Vein Open Last Admin: 04/18/20 10:07 Dose: 10 ml Documented by: Discontinued Medications Famotidine (Pepcid) 20 mg IVPUSH ONETIME ONE Stop: 04/18/20 09:36 Last Admin: 04/18/20 10:07 Dose: 20 mg Documented by: Hydromorphone HCl (Dilaudid) 0.5 mg IVPUSH ONETIME ONE Stop: 04/18/20 11:00 Last Admin: 04/18/20 11:06 Dose: 0.5 mg Documented by: Hydromorphone HCl (Dilaudid) 0.5 mg IVPUSH ONETIME ONE Stop: 04/18/20 13:14 Last Admin: 04/18/20 13:50 Dose: 0.5 mg Documented by: Sodium Chloride (Normal Saline) 1,000 mls @ 999 mls/hr IV ONETIME [facility] Last Admin: 04/18/20 10:09 Dose: 999 mls/hr Documented by: Potassium Chloride 10 meq/ (Premix) 100 mls @ 50 mls/hr IV ASDIRECTED ONE Stop: 04/18/20 13:47 Last Admin: 04/18/20 11:57 Dose: 50 mls/hr Documented by: Sodium Chloride (Normal Saline) 1,000 mls @ 999 mls/hr IV ONETIME [facility] Last Admin: 04/18/20 11:55 Dose: 999 mls/hr Documented by: Magnesium Sulfate (Magnesium Sulfate In Water Premix) 2 gm in 50 mls @ 25 mls/hr IV ONETIME ONE Stop: 04/18/20 16:59 Last Admin: 04/18/20 15:00 Dose: 25 mls/hr Documented by: Potassium Chloride 10 meq/ (Premix) 100 mls @ 100 mls/hr IV Q1H [facility] Stop: 04/19/20 01:29 Last Admin: 04/19/20 01:33 Dose: 100 mls/hr Documented by: Insulin Human Regular (Humulin R) 0 unit SUBCUT [facility]; Protocol Last Admin: 04/18/20 20:42 Dose: 3 unit Documented by: Lorazepam (Ativan) 1 mg IVPUSH ONETIME ONE Stop: 04/18/20 13:14 Last Admin: 04/18/20 13:24 Dose: 1 mg Documented by: Lorazepam (Ativan) 1 mg IV Q6H PRN PRN Reason: Nausea/Vomiting Ondansetron HCl (Zofran) 4 mg IVPUSH ONETIME ONE Stop: 04/18/20 09:36 Last Admin: 04/18/20 10:05 Dose: 4 mg Documented by: - Exam Quality Assessment: No: Supplemental Oxygen General: Alert, Oriented, Cooperative HEENT: Pupils Equal, Pupils Reactive Neck: Supple, Trachea Midline Lungs: Clear to Auscultation, Normal Respiratory Effort Cardiovascular: Regular Rate, Regular Rhythm GI/Abdominal Exam: Normal Bowel Sounds, Soft, No Distention, Tender (Mild, mid abdomen) (Female) Exam: Deferred Back Exam: Normal Inspection, Full Range of Motion Extremities: Normal Inspection, No Pedal Edema Skin: Warm, Dry, Intact Neurological: No New Focal Deficit Psy/Mental Status: Alert, Normal Affect, Normal Mood Sepsis Event Note - Evaluation Sepsis Screening Result: No Definite Risk - Focused Exam Vital Signs: Vital Signs Temp Pulse Resp BP Pulse Ox 04/19/20 07:58 36.7 C 98 14 145/95 H 97 04/19/20 00:32 36.6 C 109 H 20 144/86 H 97 - Problem List & Annotations (1) Pancreatitis SNOMED Code(s): 23038026 Code(s): K85.90 - ACUTE PANCREATITIS WITHOUT NECROSIS OR INFECTION, UNSP Status: Acute Current Visit: Yes Qualifiers: Chronicity: acute Pancreatitis type: alcohol induced Acute pancreatitis complication: unspecified Qualified Code(s): K85.20 - Alcohol induced acute pancreatitis without necrosis or infection (2) Hypokalemia SNOMED Code(s): 02734561 Code(s): E87.6 - HYPOKALEMIA Status: Acute Priority: High Current Visit: Yes (3) Alcohol withdrawal syndrome SNOMED Code(s): 167674987 Code(s): F10.239 - ALCOHOL DEPENDENCE WITH WITHDRAWAL, UNSPECIFIED Status: Chronic Priority: Medium Current Visit: Yes Qualifiers: Complication of substance-induced condition: with unspecified complication Qualified Code(s): F10.239 - Alcohol dependence with withdrawal, unspecified (4) Anxiety SNOMED Code(s): 63900540 Code(s): F41.9 - ANXIETY DISORDER, UNSPECIFIED Status: Chronic Priority: Medium Current Visit: Yes - Problem List Review Problem List Initiated/Reviewed/Updated: Yes - My Orders Last 24 Hours: My Active Orders 04/18/20 13:56 Patient Status [ADT] Routine Blood Glucose Check, Bedside [RC] QIDACANDBED CIWAA Assessment [RC] Q4HR Oxygen Therapy [RC] PRN Up ad Rebecca [RC] BID VTE/DVT Education [RC] PER UNIT ROUTINE Consult to Diabetic Nurse Specialist [CONS] Routine Consult to Field Service Specialist [CONS] Routine Albuterol/Ipratropium [DuoNeb 3.0-0.5 MG/3 ML] 3 ml NEB Q4H PRN Dextrose 50% in Water 50 ml IV ASDIRECTED PRN Glucagon,Human Recombinant [GlucaGen] 1 mg IM ASDIRECTED PRN HYDROmorphone [Dilaudid] 0.5 mg IVPUSH Q2H PRN Ondansetron [Zofran] 4 mg IV Q6H PRN Glucose Management Sub Q Reflex [OM.PC] Click to Edit Resuscitation Status Routine 04/18/20 13:59 Diabetes Education [RC] 1000 04/18/20 14:00 Sodium Chloride 0.9% [Normal Saline] 1,000 ml IV ASDIRECTED 04/18/20 15:00 Enoxaparin [Lovenox] 40 mg SUBCUT DAILY Nicotine [Habitrol] 21 mg TRDERM DAILY Pantoprazole [ProTONIX IV] 40 mg IVPUSH Q12H 04/18/20 Dinner Nothing per Oral Now Diet [DIET] 04/18/20 19:52 LORazepam [Ativan] See Protocol IVPUSH Q4H PRN 04/19/20 08:30 Insulin Regular, Human [HumuLIN R] 0 unit SUBCUT TID@0700,1100,1700 04/19/20 09:00 Remove Patch 0 ea TRDERM DAILY - Assessment Assessment:: The patient is a 35-year-old lady who is being evaluated for pancreatitis. The patient has been doing better although she is concerned about withdrawal symptoms. The patient will be continued on CIWA protocol with Ativan. The patient's n.p.o. diet will be discontinued and she will be advanced to clear liquids for now. I have ordered repeat laboratory studies for the morning to include lipase. The patient has an encouraged to ambulate. The patient's DVT prophylaxis will continue with the use of Lovenox. Patient should be appropriate for discharge in 1 to 2 days. The patient has been advised with regards to the importance of complete alcohol abstinence.
[2020-04-19] MEDS ORDERED: Potassium Chloride 10 MEQ in Premix Bag 1 BAG IV SCH (15:30)
[2020-04-19] MEDS ORDERED: Nicotine 21 MG/24 Hr Patch TRDERM ONE (18:36)
[2020-04-19] MEDS: Polyethylene Glycol 3350 Powder 17 GM Packet PO SCH (21:04)
[2020-04-20] MEDS: HYDROmorphone 0.5 MG/0.5 ML Syringe IVPUSH PRN ×4 (01:37→11:20)
[2020-04-20] MEDS: Pantoprazole 40 MG Vial IVPUSH SCH ×2 (03:27→14:50)
[2020-04-20] MEDS: Sodium Chloride 0.9% 1,000 ML IV SCH (07:20)
[2020-04-20] MEDS: Insulin Regular, Human 100 Units/ML 3 ML Vial SUBCUT SCH ×3 (08:21→18:31)
[2020-04-20] MEDS: Enoxaparin 40 MG/0.4 ML Syringe SUBCUT SCH (08:22)
[2020-04-20] MEDS: Polyethylene Glycol 3350 Powder 17 GM Packet PO SCH ×2 (08:22→21:32)
[2020-04-20] MEDS ORDERED: Potassium Chloride 10 MEQ in Premix Bag 1 BAG IV SCH (09:30)
[2020-04-20] MEDS: Potassium Chloride 20 MEQ Tab.ER PO SCH (09:44)
--- NOTE | 2020-04-20 10:18 | PCM.PN ---
- General Info Date of Service: 04/20/20 Admission Dx/Problem (Free Text): Admission Diagnosis/Problem Admission Diagnosis/Problem Pancreatitis Subjective Update: The patient is a 35-year-old lady who was admitted through the emergency department with abdominal pain nausea and intermittent vomiting. She was admitted secondary to alcoholic pancreatitis. Patient's diet had been advanced and she has been able to tolerate clear liquids. Patient's pain also has been controlled well. The patient's lipase is still elevated at 975 units/L. The patient has been ambulating. Functional Status: Reports: Pain Controlled, Tolerating Diet - Review of Systems General: Reports: No Symptoms HEENT: Reports: No Symptoms Pulmonary: Reports: No Symptoms Cardiovascular: Reports: No Symptoms Gastrointestinal: Reports: Abdominal Pain Genitourinary: Reports: No Symptoms Musculoskeletal: Reports: No Symptoms Skin: Reports: No Symptoms Neurological: Reports: No Symptoms Psychiatric: Reports: No Symptoms - Patient Data Vitals - Most Recent: Last Vital Signs Temp 36.7 C 04/20/20 08:07 Pulse 80 04/20/20 08:07 Resp 16 04/20/20 08:07 BP 129/87 04/20/20 08:07 Pulse Ox 98 04/20/20 08:07 Weight - Most Recent: 84.414 kg I&O - Last 24 Hours: Intake & Output 04/19/20 04/20/20 04/20/20 22:59 06:59 14:59 Intake Total 4391 2000 Output Total 600 900 Balance 3791 1100 Lab Results Last 24 Hours: Laboratory Results - last 24 hr 04/19/20 04/19/20 04/19/20 Range/Units 11:11 17:07 20:41 WBC (3.98-10.04) K/mm3 RBC (3.98-5.22) M/mm3 Hgb (11.2-15.7) gm/dl Hct (34.1-44.9) % MCV (79.4-94.8) fl MCH (25.6-32.2) pg MCHC (32.2-35.5) g/dl RDW Std Deviation (36.4-46.3) fL Plt Count (182-369) K/mm3 MPV (9.4-12.3) fl Neut % (Auto) (34.0-71.1) % Lymph % (Auto) (19.3-51.7) % [place] % (Auto) (4.7-12.5) % Eos % (Auto) (0.7-5.8) Baso % (Auto) (0.1-1.2) % Neut # (Auto) (1.56-6.13) K/mm3 Lymph # (Auto) (1.18-3.74) K/mm3 [place] # (Auto) (0.24-0.36) K/mm3 Eos # (Auto) (0.04-0.36) K/mm3 Baso # (Auto) (0.01-0.08) K/mm3 Manual Slide Review Sodium (136-145) mEq/L Potassium (3.5-5.1) mEq/L Chloride (98-107) mEq/L Carbon Dioxide (21-32) mEq/L Anion Gap (5-15) BUN (7-18) mg/dL Creatinine (0.55-1.02) mg/dL Est Cr Clr Drug Dosing mL/min Estimated GFR (MDRD) (>60) mL/min BUN/Creatinine Ratio (14-18) Glucose (74-106) mg/dL POC Glucose 161 H 206 H 152 H (70-105) mg/dL Calcium (8.5-10.1) mg/dL Magnesium (1.8-2.4) mg/dl Total Bilirubin (0.2-1.0) mg/dL AST (15-37) U/L ALT (14-59) U/L Alkaline Phosphatase (46-116) U/L Total Protein (6.4-8.2) g/dl Albumin (3.4-5.0) g/dl Globulin gm/dL Albumin/Globulin Ratio (1-2) Lipase (73-393) U/L 04/20/20 04/20/20 04/20/20 Range/Units 04:45 04:45 06:30 WBC 4.19 (3.98-10.04) K/mm3 RBC 3.34 L (3.98-5.22) M/mm3 Hgb 11.4 D (11.2-15.7) gm/dl Hct 36.1 (34.1-44.9) % MCV 108.1 H (79.4-94.8) fl MCH 34.1 H (25.6-32.2) pg MCHC 31.6 L (32.2-35.5) g/dl RDW Std Deviation 48.6 H (36.4-46.3) fL Plt Count 162 L (182-369) K/mm3 MPV 10.1 (9.4-12.3) fl Neut % (Auto) 49.2 (34.0-71.1) % Lymph % (Auto) 37.0 (19.3-51.7) % [place] % (Auto) 11.2 (4.7-12.5) % Eos % (Auto) 2.1 (0.7-5.8) Baso % (Auto) 0.5 (0.1-1.2) % Neut # (Auto) 2.06 (1.56-6.13) K/mm3 Lymph # (Auto) 1.55 (1.18-3.74) K/mm3 [place] # (Auto) 0.47 H (0.24-0.36) K/mm3 Eos # (Auto) 0.09 (0.04-0.36) K/mm3 Baso # (Auto) 0.02 (0.01-0.08) K/mm3 Manual Slide Review Abnormal smear Sodium 132 L (136-145) mEq/L Potassium 3.0 L (3.5-5.1) mEq/L Chloride 97 L (98-107) mEq/L Carbon Dioxide 21 (21-32) mEq/L Anion Gap 17.0 H (5-15) BUN 1 L (7-18) mg/dL Creatinine 0.5 L (0.55-1.02) mg/dL Est Cr Clr Drug Dosing 139.97 mL/min Estimated GFR (MDRD) > 60 (>60) mL/min BUN/Creatinine Ratio 2.0 L (14-18) Glucose 161 H (74-106) mg/dL POC Glucose 165 H (70-105) mg/dL Calcium 8.5 (8.5-10.1) mg/dL Magnesium 1.2 L (1.8-2.4) mg/dl Total Bilirubin 0.6 (0.2-1.0) mg/dL AST 43 H (15-37) U/L ALT 32 (14-59) U/L Alkaline Phosphatase 95 (46-116) U/L Total Protein 6.1 L (6.4-8.2) g/dl Albumin 2.4 L (3.4-5.0) g/dl Globulin 3.7 gm/dL Albumin/Globulin Ratio 0.7 L (1-2) Lipase 975 H (73-393) U/L Med Orders - Current: Current Medications Albuterol/Ipratropium (Duoneb 3.0-0.5 Mg/3 Ml) 3 ml NEB Q4H PRN PRN Reason: Shortness Of Breath/wheezing Dextrose/Water (Dextrose 50% In Water) 50 ml IV ASDIRECTED PRN PRN Reason: Hypoglycemia Enoxaparin Sodium (Lovenox) 40 mg SUBCUT DAILY [facility] Last Admin: 04/20/20 08:22 Dose: 40 mg Documented by: Glucagon (Glucagen) 1 mg IM ASDIRECTED PRN PRN Reason: Hypoglycemia Hydromorphone HCl (Dilaudid) 0.5 mg IVPUSH Q2H PRN PRN Reason: Pain (severe 7-10) Last Admin: 04/20/20 07:06 Dose: 0.5 mg Documented by: Potassium Chloride 10 meq/ (Premix) 100 mls @ 100 mls/hr IV Q1H [facility] Stop: 04/20/20 10:29 Last Admin: 04/20/20 09:44 Dose: 100 mls/hr Documented by: Insulin Human Regular (Humulin R) 0 unit SUBCUT TID@0700,1100,1700 [facility]; Protocol Last Admin: 04/20/20 08:21 Dose: 1 unit Documented by: Lorazepam (Ativan) 0 mg IVPUSH Q4H PRN; Protocol PRN Reason: Withdrawal Symptoms Miscellaneous Information (Remove Patch) 0 ea TRDERM 2100 [facility] Last Admin: 04/19/20 19:00 Dose: 1 ea Documented by: Nicotine (Habitrol) 21 mg TRDERM 2100 [facility] Last Admin: 04/19/20 19:00 Dose: 21 mg Documented by: Ondansetron HCl (Zofran) 4 mg IV Q6H PRN PRN Reason: Nausea/Vomiting Last Admin: 04/19/20 12:05 Dose: 4 mg Documented by: Pantoprazole Sodium (Protonix Iv) 40 mg IVPUSH Q12H [facility] Last Admin: 04/20/20 03:27 Dose: 40 mg Documented by: Polyethylene Glycol (Miralax) 17 gm PO BID [facility] Last Admin: 04/20/20 08:22 Dose: 17 gm Documented by: Potassium Chloride (Klor-Con M20) 20 meq PO DAILY [facility] Last Admin: 04/20/20 09:44 Dose: 20 meq Documented by: Sodium Chloride (Saline Flush) 10 ml FLUSH ASDIRECTED PRN PRN Reason: Keep Vein Open Last Admin: 04/18/20 10:07 Dose: 10 ml Documented by: Discontinued Medications Famotidine (Pepcid) 20 mg IVPUSH ONETIME ONE Stop: 04/18/20 09:36 Last Admin: 04/18/20 10:07 Dose: 20 mg Documented by: Hydromorphone HCl (Dilaudid) 0.5 mg IVPUSH ONETIME ONE Stop: 04/18/20 11:00 Last Admin: 04/18/20 11:06 Dose: 0.5 mg Documented by: Hydromorphone HCl (Dilaudid) 0.5 mg IVPUSH ONETIME ONE Stop: 04/18/20 13:14 Last Admin: 04/18/20 13:50 Dose: 0.5 mg Documented by: Sodium Chloride (Normal Saline) 1,000 mls @ 999 mls/hr IV ONETIME [facility] Last Admin: 04/18/20 10:09 Dose: 999 mls/hr Documented by: Potassium Chloride 10 meq/ (Premix) 100 mls @ 50 mls/hr IV ASDIRECTED ONE Stop: 04/18/20 13:47 Last Admin: 04/18/20 11:57 Dose: 50 mls/hr Documented by: Sodium Chloride (Normal Saline) 1,000 mls @ 999 mls/hr IV ONETIME [facility] Last Admin: 04/18/20 11:55 Dose: 999 mls/hr Documented by: Sodium Chloride (Normal Saline) 1,000 mls @ 125 mls/hr IV ASDIRECTED [facility] Last Admin: 04/20/20 07:20 Dose: 125 mls/hr Documented by: Magnesium Sulfate (Magnesium Sulfate In Water Premix) 2 gm in 50 mls @ 25 mls/hr IV ONETIME ONE Stop: 04/18/20 16:59 Last Admin: 04/18/20 15:00 Dose: 25 mls/hr Documented by: Potassium Chloride 10 meq/ (Premix) 100 mls @ 100 mls/hr IV Q1H [facility] Stop: 04/19/20 01:29 Last Admin: 04/19/20 01:33 Dose: 100 mls/hr Documented by: Potassium Chloride 10 meq/ (Premix) 100 mls @ 100 mls/hr IV Q1H [facility] Stop: 04/19/20 16:29 Last Admin: 04/19/20 16:12 Dose: 100 mls/hr Documented by: [facility]ulin Human [facility]) [facility] Last Admin: 04/18/20 20:42 Dose: 3 unit Documented by: Lorazepam (Ativan) 1 mg IVPUSH ONETIME ONE Stop: 04/18/20 13:14 Last Admin: 04/18/20 13:24 Dose: 1 mg Documented by: Lorazepam (Ativan) 1 mg IV Q6H PRN PRN Reason: Nausea/Vomiting Miscellaneous Information (Remove Patch) 0 ea TRDERM DAILY [facility] Last Admin: 04/19/20 08:45 Dose: 1 ea Documented by: Nicotine (Habitrol) 21 mg TRDERM DAILY [facility] Last Admin: 04/19/20 08:45 Dose: 21 mg Documented by: Nicotine (Habitrol) 21 mg TRDERM ONETIME ONE Stop: 04/19/20 18:37 Last Admin: 04/19/20 18:55 Dose: 21 mg Documented by: Ondansetron HCl (Zofran) 4 mg IVPUSH ONETIME ONE Stop: 04/18/20 09:36 Last Admin: 04/18/20 10:05 Dose: 4 mg Documented by: - Exam Quality Assessment: DVT Prophylaxis. No: Supplemental Oxygen General: Alert, Oriented, Cooperative, No Acute Distress HEENT: Pupils Equal, Pupils Reactive, EOMI, Mucous Membr. Moist/[place] Neck: Supple, Trachea Midline Lungs: Clear to Auscultation, Normal Respiratory Effort Cardiovascular: Regular Rate, Regular Rhythm GI/Abdominal Exam: Normal Bowel Sounds, Soft, Non-Tender, No Distention (Female) Exam: Deferred Back Exam: Normal Inspection, Full Range of Motion Extremities: Normal Inspection, Normal Range of Motion, No Pedal Edema Skin: Warm, Dry, Intact Neurological: No New Focal Deficit, Normal Gait Psy/Mental Status: Alert, Normal Affect, Normal Mood Sepsis Event Note - Evaluation Sepsis Screening Result: No Definite Risk - Focused Exam Vital Signs: Vital Signs Temp Temp Pulse Pulse Resp BP BP 04/20/20 08:07 36.7 C 80 16 129/87 04/20/20 03:35 36.6 C 84 15 138/95 H 04/20/20 00:00 36.6 C 77 15 133/94 H Pulse Ox 04/20/20 08:07 98 04/20/20 03:35 97 04/20/20 00:00 99 - Problem List & Annotations (1) Pancreatitis SNOMED Code(s): 97034848 Code(s): K85.90 - ACUTE PANCREATITIS WITHOUT NECROSIS OR INFECTION, UNSP Status: Acute Current Visit: Yes Qualifiers: Chronicity: acute Pancreatitis type: alcohol induced Acute pancreatitis complication: unspecified Qualified Code(s): K85.20 - Alcohol induced acute pancreatitis without necrosis or infection (2) Hypokalemia SNOMED Code(s): 61744700 Code(s): E87.6 - HYPOKALEMIA Status: Acute Priority: High Current Visit: Yes (3) Alcohol withdrawal syndrome SNOMED Code(s): 009262080 Code(s): F10.239 - ALCOHOL DEPENDENCE WITH WITHDRAWAL, UNSPECIFIED Status: Chronic Priority: Medium Current Visit: Yes Qualifiers: Complication of substance-induced condition: with unspecified complication Qualified Code(s): F10.239 - Alcohol dependence with withdrawal, unspecified (4) Anxiety SNOMED Code(s): 49467103 Code(s): F41.9 - ANXIETY DISORDER, UNSPECIFIED Status: Chronic Priority: Medium Current Visit: Yes - Problem List Review Problem List Initiated/Reviewed/Updated: Yes - My Orders Last 24 Hours: My Active Orders 04/19/20 Lunch Clear Liquid Diet [DIET] 04/19/20 21:00 Nicotine [Habitrol] 21 mg TRDERM 2100 Remove Patch 0 ea TRDERM 2100 polyethylene glycoL 3350 [MiraLAX] 17 gm PO BID 04/20/20 09:30 Potassium Chloride [KCl 10 MEQ in Water 100 ML] 10 meq Premix Bag 1 bag IV Q1H Potassium Chloride [Klor-Con M20] 20 meq PO DAILY - Assessment Assessment:: The patient is a 35-year-old lady who is being evaluated for pancreatitis. The patient has been doing better although she is concerned about withdrawal symptoms. The patient will be continued on CIWA protocol with Ativan. The patient's n.p.o. diet will be discontinued and she will be advanced to clear liquids for now. I have ordered repeat laboratory studies for the morning to include lipase. The patient has an encouraged to ambulate. The patient's DVT prophylaxis will continue with the use of Lovenox. Patient should be appropriate for discharge in 1 to 2 days. The patient has been advised with regards to the importance of complete alcohol abstinence. - Plan Plan:: The patient is a 35-year-old lady who has been admitted to acute hospitalization out of concern for pancreatitis due to alcohol consumption. The patient will be kept n.p.o. She will have fluids consisting of normal saline IV at 100 mL/h. Patient will also be kept on CIWA protocol. I have also ordered Ativan 1 mg every 4 hours as necessary for seizures or anxiety. The patient will also be kept on telemetry. The patient also has been placed on DVT protocol with the use of Lovenox 40 mg subcu daily. The patient also has electrolyte abnormalities and these will be corrected as needed. She has been encouraged to ambulate. It also looks at this time with the patient is a full diabetic. The hemoglobin A1c has been ordered. She will be kept on sliding scale insulin and when she is able to intake foods she will be transitioned to appropriate diabetic diet. Patient has been strongly advised that she should not have alcohol anymore. The patient should be appropriate for discharge in 2 to 3 days. 04/20/2020 Overall today the patient is doing better. She has had her diet advanced to clear liquids and has been tolerating this. I have advanced her diet to full regular diet as tolerated. The patient will continue on the CIWA protocol for now. She is still on telemetry. She is also on DVT prophylaxis with Lovenox 40 mg subcu daily. The patient can also be considered a new onset diabetic as her hemoglobin A1c is at 9.0%. The patient will be kept on appropriate carb counts diet and will continue with insulin as needed. The patient should have an opportunity to speak with diabetes educator in order to receive meter and testing supplies. These have also have been ordered. The patient has been encouraged to ambulate. I will also order laboratory tests tomorrow including lipase. My concern though is that the patient does go home that she will continue to drink. To be appropriate for tomorrow discharge.
[2020-04-20] MEDS: Acetaminophen/HYDROcodone 325-5 MG Tab PO PRN ×3 (14:50→21:48)
[2020-04-20] MEDS ORDERED: Magnesium Sulfate/Water 2 GM/50 ML BAG IV ONE (16:45)
[2020-04-20] MEDS ORDERED: Magnesium Sulfate/Water 2 GM/50 ML Premix Bag IV ONE (17:00)
[2020-04-20] MEDS: Nicotine 21 MG/24 Hr Patch TRDERM SCH (21:32)
[2020-04-21] MEDS: Pantoprazole 40 MG Vial IVPUSH SCH (02:23)
[2020-04-21] MEDS: Acetaminophen/HYDROcodone 325-5 MG Tab PO PRN ×4 (03:50→19:27)
[2020-04-21] MEDS: Enoxaparin 40 MG/0.4 ML Syringe SUBCUT SCH (09:25)
[2020-04-21] MEDS: Potassium Chloride 20 MEQ Tab.ER PO SCH ×2 (09:27→20:20)
[2020-04-21] MEDS: Polyethylene Glycol 3350 Powder 17 GM Packet PO SCH ×2 (09:28→20:24)
[2020-04-21] MEDS: Insulin Regular, Human 100 Units/ML 3 ML Vial SUBCUT SCH ×3 (09:33→17:32)
[2020-04-21] MEDS ORDERED: Magnesium Sulfate/Water 4 GM in Premix Bag 1 BAG IV ONE (11:00)
[2020-04-21] MEDS: Potassium Chloride 10 MEQ in Premix Bag 1 BAG IV SCH ×4 (12:51→18:24)
--- NOTE | 2020-04-21 14:32 | PCM.PN ---
- General Info Date of Service: 04/21/20 Admission Dx/Problem (Free Text): Admission Diagnosis/Problem Admission Diagnosis/Problem Pancreatitis Subjective Update: Patient continues to improve. She is now on a full diet and tolerating it. She does have some pain after eating. Functional Status: Reports: Pain Controlled - Review of Systems General: Reports: No Symptoms HEENT: Reports: No Symptoms Pulmonary: Reports: No Symptoms Cardiovascular: Reports: No Symptoms Gastrointestinal: Reports: Nausea Musculoskeletal: Reports: No Symptoms Neurological: Reports: No Symptoms Psychiatric: Reports: No Symptoms - Patient Data Vitals - Most Recent: Last Vital Signs Temp 98.1 F 04/21/20 07:33 Pulse 86 04/21/20 07:33 Resp 16 04/21/20 07:33 BP 142/94 H 04/21/20 07:33 Pulse Ox 100 04/21/20 07:33 Weight - Most Recent: 83.518 kg I&O - Last 24 Hours: Intake & Output 04/20/20 04/21/20 04/21/20 22:59 06:59 14:59 Intake Total 2090 1650 Output Total 1100 900 Balance 990 750 Lab Results Last 24 Hours: Laboratory Results - last 24 hr 04/20/20 04/20/20 04/21/20 Range/Units 17:36 21:52 06:30 Sodium (136-145) mEq/L Potassium (3.5-5.1) mEq/L Chloride (98-107) mEq/L Carbon Dioxide (21-32) mEq/L Anion Gap (5-15) BUN (7-18) mg/dL Creatinine (0.55-1.02) mg/dL Est Cr Clr Drug Dosing mL/min Estimated GFR (MDRD) (>60) mL/min BUN/Creatinine Ratio (14-18) Glucose (74-106) mg/dL POC Glucose 189 H 240 H 165 H (70-105) mg/dL Calcium (8.5-10.1) mg/dL Magnesium (1.8-2.4) mg/dl Total Bilirubin (0.2-1.0) mg/dL AST (15-37) U/L ALT (14-59) U/L Alkaline Phosphatase (46-116) U/L Total Protein (6.4-8.2) g/dl Albumin (3.4-5.0) g/dl Globulin gm/dL Albumin/Globulin Ratio (1-2) 04/21/20 Range/Units 09:34 Sodium 132 L (136-145) mEq/L Potassium 2.9 L (3.5-5.1) mEq/L Chloride 95 L (98-107) mEq/L Carbon Dioxide 22 (21-32) mEq/L Anion Gap 17.9 H (5-15) BUN 1 L (7-18) mg/dL Creatinine 0.5 L (0.55-1.02) mg/dL Est Cr Clr Drug Dosing 139.97 mL/min Estimated GFR (MDRD) > 60 (>60) mL/min BUN/Creatinine Ratio 0.0 L (14-18) Glucose 232 H (74-106) mg/dL POC Glucose (70-105) mg/dL Calcium 8.9 (8.5-10.1) mg/dL Magnesium 1.5 L (1.8-2.4) mg/dl Total Bilirubin 0.6 (0.2-1.0) mg/dL AST 48 H (15-37) U/L ALT 46 (14-59) U/L Alkaline Phosphatase 112 (46-116) U/L Total Protein 6.9 (6.4-8.2) g/dl Albumin 2.8 L (3.4-5.0) g/dl Globulin 4.1 gm/dL Albumin/Globulin Ratio 0.7 L (1-2) Med Orders - Current: Current Medications Hydrocodone Bitart/Acetaminophen ([place] 325-5 Mg) 1 tab PO Q4H PRN PRN Reason: Pain Last Admin: 04/21/20 09:26 Dose: 1 tab Documented by: Albuterol/Ipratropium (Duoneb 3.0-0.5 Mg/3 Ml) 3 ml NEB Q4H PRN PRN Reason: Shortness Of Breath/wheezing Dextrose/Water (Dextrose 50% In Water) 50 ml IV ASDIRECTED PRN PRN Reason: Hypoglycemia Enoxaparin Sodium (Lovenox) 40 mg SUBCUT DAILY GENNY Last Admin: 04/21/20 09:25 Dose: 40 mg Documented by: Glucagon (Glucagen) 1 mg IM ASDIRECTED PRN PRN Reason: Hypoglycemia Potassium Chloride 10 meq/ (Premix) 100 mls @ 100 mls/hr IV Q1H GENNY Stop: 04/21/20 14:59 Last Admin: 04/21/20 12:51 Dose: 100 mls/hr Documented by: Magnesium Sulfate 4 gm/ Premix 50 mls @ 12.5 mls/hr IV ONETIME ONE Stop: 04/21/20 14:59 Last Admin: 04/21/20 12:57 Dose: 12.5 mls/hr Documented by: Insulin Human Regular (Humulin R) 0 unit SUBCUT TID@0700,1100,1700 [facility]; Protocol Last Admin: 04/21/20 12:54 Dose: 3 unit Documented by: Lorazepam (Ativan) 0 mg IVPUSH Q4H PRN; Protocol PRN Reason: Withdrawal Symptoms Miscellaneous Information (Remove Patch) 0 ea TRDERM 2100 [facility] Last Admin: 04/20/20 21:33 Dose: 1 ea Documented by: Nicotine (Habitrol) 21 mg TRDERM 2100 [facility] Last Admin: 04/20/20 21:32 Dose: 21 mg Documented by: Ondansetron HCl (Zofran) 4 mg IV Q6H PRN PRN Reason: Nausea/Vomiting Last Admin: 04/19/20 12:05 Dose: 4 mg Documented by: Polyethylene Glycol (Miralax) 17 gm PO BID [facility] Last Admin: 04/21/20 09:28 Dose: Not Given Documented by: Potassium Chloride (Klor-Con M20) 20 meq PO DAILY [facility] Last Admin: 04/21/20 09:27 Dose: 20 meq Documented by: Sodium Chloride (Saline Flush) 10 ml FLUSH ASDIRECTED PRN PRN Reason: Keep Vein Open Last Admin: 04/18/20 10:07 Dose: 10 ml Documented by: Discontinued Medications Famotidine (Pepcid) 20 mg IVPUSH ONETIME ONE Stop: 04/18/20 09:36 Last Admin: 04/18/20 10:07 Dose: 20 mg Documented by: Hydromorphone HCl (Dilaudid) 0.5 mg IVPUSH ONETIME ONE Stop: 04/18/20 11:00 Last Admin: 04/18/20 11:06 Dose: 0.5 mg Documented by: Hydromorphone HCl (Dilaudid) 0.5 mg IVPUSH ONETIME ONE Stop: 04/18/20 13:14 Last Admin: 04/18/20 13:50 Dose: 0.5 mg Documented by: Hydromorphone HCl (Dilaudid) 0.5 mg IVPUSH Q2H PRN PRN Reason: Pain (severe 7-10) Last Admin: 04/20/20 11:20 Dose: 0.5 mg Documented by: Sodium Chloride (Normal Saline) 1,000 mls @ 999 mls/hr IV ONETIME [facility] Last Admin: 04/18/20 10:09 Dose: 999 mls/hr Documented by: Potassium Chloride 10 meq/ (Premix) 100 mls @ 50 mls/hr IV ASDIRECTED ONE Stop: 04/18/20 13:47 Last Admin: 04/18/20 11:57 Dose: 50 mls/hr Documented by: Sodium Chloride (Normal Saline) 1,000 mls @ 999 mls/hr IV ONETIME [facility] Last Admin: 04/18/20 11:55 Dose: 999 mls/hr Documented by: Sodium Chloride (Normal Saline) 1,000 mls @ 125 mls/hr IV ASDIRECTED [facility] Last Admin: 04/20/20 07:20 Dose: 125 mls/hr Documented by: Magnesium Sulfate (Magnesium Sulfate In Water Premix) 2 gm in 50 mls @ 25 mls/hr IV ONETIME ONE Stop: 04/18/20 16:59 Last Admin: 04/18/20 15:00 Dose: 25 mls/hr Documented by: Potassium Chloride 10 meq/ (Premix) 100 mls @ 100 mls/hr IV Q1H [facility] Stop: 04/19/20 01:29 Last Admin: 04/19/20 01:33 Dose: 100 mls/hr Documented by: Potassium Chloride 10 meq/ (Premix) 100 mls @ 100 mls/hr IV Q1H [facility] Stop: 04/19/20 16:29 Last Admin: 04/19/20 16:12 Dose: 100 mls/hr Documented by: Potassium Chloride 10 meq/ (Premix) 100 mls @ 100 mls/hr IV Q1H [facility] Stop: 04/20/20 10:29 Last Admin: 04/20/20 09:44 Dose: 100 mls/hr Documented by: Magnesium Sulfate (Magnesium Sulfate In Water Premix) 2 gm in 50 mls @ 25 mls/hr IV ONETIME ONE Stop: 04/20/20 18:44 Last Admin: 04/20/20 17:38 Dose: 25 mls/hr Documented by: Insulin Human Regular (Humulin R) 0 unit SUBCUT TIDPC [facility]; Protocol Last Admin: 04/18/20 20:42 Dose: 3 unit Documented by: Lorazepam (Ativan) 1 mg IVPUSH ONETIME ONE Stop: 04/18/20 13:14 Last Admin: 04/18/20 13:24 Dose: 1 mg Documented by: Lorazepam (Ativan) 1 mg IV Q6H PRN PRN Reason: Nausea/Vomiting Magnesium Sulfate (Magnesium Sulfate In Water Premix) 2 gm IV ONETIME ONE Stop: 04/20/20 17:01 Miscellaneous Information (Remove Patch) 0 ea TRDERM DAILY [facility] Last Admin: 04/19/20 08:45 Dose: 1 ea Documented by: Nicotine (Habitrol) 21 mg TRDERM DAILY [facility] Last Admin: 04/19/20 08:45 Dose: 21 mg Documented by: Nicotine (Habitrol) 21 mg TRDERM ONETIME ONE Stop: 04/19/20 18:37 Last Admin: 04/19/20 18:55 Dose: 21 mg Documented by: Ondansetron HCl (Zofran) 4 mg IVPUSH ONETIME ONE Stop: 04/18/20 09:36 Last Admin: 04/18/20 10:05 Dose: 4 mg Documented by: Pantoprazole Sodium (Protonix Iv) 40 mg IVPUSH Q12H [facility] Last Admin: 04/21/20 02:23 Dose: 40 mg Documented by: - Exam Quality Assessment: No: Supplemental Oxygen General: Alert, Oriented HEENT: Pupils Equal, Mucous Membr. Moist/[place] Neck: Supple Lungs: Clear to Auscultation, Normal Respiratory Effort Cardiovascular: Regular Rate, Regular Rhythm GI/Abdominal Exam: Normal Bowel Sounds, Soft, No Distention, Tender (Minimal epigastric tenderness without guarding or rebound.) Extremities: Normal Inspection, Normal Range of Motion, Non-Tender, No Pedal Edema, Normal Capillary Refill Skin: Warm, Dry, Intact Neurological: No New Focal Deficit Psy/Mental Status: Alert, Normal Affect, Normal Mood Sepsis Event Note - Evaluation Sepsis Screening Result: No Definite Risk - Focused Exam Vital Signs: Vital Signs Temp Pulse Resp BP Pulse Ox 04/21/20 07:33 98.1 F 86 16 142/94 H 100 10/26/20 03:49 78 128/97 H 99 04/21/20 03:48 97.3 F 84 15 145/101 H 100 - Problem List & Annotations (1) Diabetes SNOMED Code(s): 41240809 Code(s): E11.9 - TYPE 2 DIABETES MELLITUS WITHOUT COMPLICATIONS Status: Acute Current Visit: Yes (2) Hypokalemia SNOMED Code(s): 76214467 Code(s): E87.6 - HYPOKALEMIA Status: Acute Priority: High Current Visit: Yes (3) Pancreatitis SNOMED Code(s): 29511457 Code(s): K85.90 - ACUTE PANCREATITIS WITHOUT NECROSIS OR INFECTION, UNSP Status: Acute Current Visit: Yes Qualifiers: Chronicity: acute Pancreatitis type: alcohol induced Acute pancreatitis complication: unspecified Qualified Code(s): K85.20 - Alcohol induced acute pancreatitis without necrosis or infection (4) Alcohol withdrawal syndrome SNOMED Code(s): 482382333 Code(s): F10.239 - ALCOHOL DEPENDENCE WITH WITHDRAWAL, UNSPECIFIED Status: Chronic Priority: Medium Current Visit: Yes Qualifiers: Complication of substance-induced condition: with unspecified complication Qualified Code(s): F10.239 - Alcohol dependence with withdrawal, unspecified (5) Hypomagnesemia SNOMED Code(s): 627039253 Code(s): E83.42 - HYPOMAGNESEMIA Status: Acute Priority: High Current Visit: No - Problem List Review Problem List Initiated/Reviewed/Updated: Yes - My Orders Last 24 Hours: My Active Orders 04/21/20 11:00 Magnesium Sulfate/Water [Magnesium Sulfate in Water Premix] 4 gm Premix Bag 1 bag IV ONETIME Potassium Chloride [KCl 10 MEQ in Water 100 ML] 10 meq Premix Bag 1 bag IV Q1H 04/22/20 05:11 CBC WITH AUTO DIFF [HEME] AM CMP [COMPREHENSIVE METABOLIC PN,CMP] [CHEM] AM MAGNESIUM [CHEM] AM - Plan Plan:: 04/19/2020 The patient is a 35-year-old lady who has been admitted to acute hospitalization out of concern for pancreatitis due to alcohol consumption. The patient will be kept n.p.o. She will have fluids consisting of normal saline IV at 100 mL/h. Patient will also be kept on CIWA protocol. I have also ordered Ativan 1 mg every 4 hours as necessary for seizures or anxiety. The patient will also be kept on telemetry. The patient also has been placed on DVT protocol with the use of Lovenox 40 mg subcu daily. The patient also has electrolyte abnormalities and these will be corrected as needed. She has been encouraged to ambulate. It also looks at this time with the patient is a full diabetic. The hemoglobin A1c has been ordered. She will be kept on sliding scale insulin and when she is able to intake foods she will be transitioned to appropriate diabetic diet. Patient has been strongly advised that she should not have alcohol anymore. The patient should be appropriate for discharge in 2 to 3 days. 04/20/2020 Overall today the patient is doing better. She has had her diet advanced to clear liquids and has been tolerating this. I have advanced her diet to full regular diet as tolerated. The patient will continue on the CIWA protocol for now. She is still on telemetry. She is also on DVT prophylaxis with Lovenox 40 mg subcu daily. The patient can also be considered a new onset diabetic as her hemoglobin A1c is at 9.0%. The patient will be kept on appropriate carb counts diet and will continue with insulin as needed. The patient should have an opportunity to speak with agricultural extension educator in order to receive meter and testing supplies. These have also have been ordered. The patient has been encouraged to ambulate. I will also order laboratory tests tomorrow including lipase. My concern though is that the patient does go home that she will continue to drink. To be appropriate for tomorrow discharge. 04/21/2020 Patient is continuing to improve. Abdominal pain is and nausea is improving. She is tolerating a regular diet and her lipase continues to decrease. She did have a significantly low potassium of 2.9 and magnesium of 1.5. Those will be replaced. Blood sugars continue to be elevated with her serum blood sugar of 232. Diabetic education was in to see her today. Continue CIWA protocol Stop pantoprazole since that can worsen hypopotassium and hypomagnesemia Start Lantus 10 units nightly Consider starting Metformin if nausea continues to improve. Continue on sliding scale insulin for now.
[2020-04-21] MEDS ORDERED: Sodium Chloride 0.9% 500 ML IV SCH (15:45)
[2020-04-21] MEDS: Nicotine 21 MG/24 Hr Patch TRDERM SCH (20:21)
[2020-04-21] MEDS ORDERED: Insulin Glarg,Human.Rec.Analog 100 Unit/ML SUBCUT SCH (21:00)
[2020-04-22] MEDS: Acetaminophen/HYDROcodone 325-5 MG Tab PO PRN ×2 (00:59→08:16)
[2020-04-22] MEDS: Polyethylene Glycol 3350 Powder 17 GM Packet PO SCH (08:10)
[2020-04-22 08:12] VITALS: PULSE 79
[2020-04-22] MEDS: Insulin Regular, Human 100 Units/ML 3 ML Vial SUBCUT SCH ×2 (08:12→12:26)
[2020-04-22] MEDS: Potassium Chloride 20 MEQ Tab.ER PO SCH ×2 (08:15)
[2020-04-22] MEDS: Enoxaparin 40 MG/0.4 ML Syringe SUBCUT SCH (08:15)
[2020-04-22] MEDS ORDERED: Thiamine 100 MG Tab PO ONE ×2 (10:00→12:45)
[2020-04-22] MEDS ORDERED: Folic Acid 1 MG Tab PO ONE ×2 (10:00→12:45)
[2020-04-22] MEDS ORDERED: Naltrexone 50 MG Tab PO ONE (12:00)
[2020-04-22 12:21] VITALS: BP 130/96
--- NOTE | 2020-04-22 12:51 | PCM.DCSUM1 ---
Discharge Summary - Hospital Course HPI Initial Comments: The patient is a 35-year-old lady who had presented to the emergency department with abdominal pain, nausea and intermittent vomiting. The patient has been an abuser of alcohol. She also describes the pain as being in her back and radiating around to the sides. The patient says that she has had some vomiting reported with this. She also says that she has had problems with withdrawal signs went without alcohol. The patient's alcohol level was found to be 0.09 in the emergency department. The patient's lipase in the emergency department was also elevated at 2686. The patient has not had pancreatitis before. Patient says that her abdominal pain has been aggravated by food and relieved by fasting. Diagnosis: Stroke: No - Discharge Data Discharge Date: 04/22/20 Discharge Disposition: Home, Self-Care 01 Condition: Good - Referral to Home Health Primary Care Physician: ALEXSANDRA Murillo - Discharge Diagnosis/Problem(s) (1) Diabetes SNOMED Code(s): 92846508 ICD Code: E11.9 - TYPE 2 DIABETES MELLITUS WITHOUT COMPLICATIONS Status: Acute (2) Hypokalemia SNOMED Code(s): 05005729 ICD Code: E87.6 - HYPOKALEMIA Status: Acute Priority: High (3) Pancreatitis SNOMED Code(s): 48397603 ICD Code: K85.90 - ACUTE PANCREATITIS WITHOUT NECROSIS OR INFECTION, UNSP Status: Acute Qualifiers: Chronicity: acute Pancreatitis type: alcohol induced Acute pancreatitis complication: unspecified Qualified Code(s): K85.20 - Alcohol induced acute pancreatitis without necrosis or infection (4) Alcohol withdrawal syndrome SNOMED Code(s): 687221450 ICD Code: F10.239 - ALCOHOL DEPENDENCE WITH WITHDRAWAL, UNSPECIFIED Status: Chronic Priority: Medium Qualifiers: Complication of substance-induced condition: with unspecified complication Qualified Code(s): F10.239 - Alcohol dependence with withdrawal, unspecified (5) Hypomagnesemia SNOMED Code(s): 239250310 ICD Code: E83.42 - HYPOMAGNESEMIA Status: Acute Priority: High - Patient Summary/Data Consults: Consultations 04/18/20 13:56 Consult to Diabetic Nurse Specialist [CONS] Routine Consult to Program Support Clerk [CONS] Routine Hospital Course: 04/19/2020 The patient is a 35-year-old lady who has been admitted to acute hospitalization out of concern for pancreatitis due to alcohol consumption. The patient will be kept n.p.o. She will have fluids consisting of normal saline IV at 100 mL/h. Patient will also be kept on CIWA protocol. I have also ordered Ativan 1 mg every 4 hours as necessary for seizures or anxiety. The patient will also be kept on telemetry. The patient also has been placed on DVT protocol with the use of Lovenox 40 mg subcu daily. The patient also has electrolyte abnormalities and these will be corrected as needed. She has been encouraged to ambulate. It also looks at this time with the patient is a full diabetic. The hemoglobin A1c has been ordered. She will be kept on sliding scale insulin and when she is able to intake foods she will be transitioned to appropriate diabetic diet. Patient has been strongly advised that she should not have alcohol anymore. The patient should be appropriate for discharge in 2 to 3 days. 04/20/2020 Overall today the patient is doing better. She has had her diet advanced to clear liquids and has been tolerating this. I have advanced her diet to full regular diet as tolerated. The patient will continue on the CIWA protocol for now. She is still on telemetry. She is also on DVT prophylaxis with Lovenox 40 mg subcu daily. The patient can also be considered a new onset diabetic as her hemoglobin A1c is at 9.0%. The patient will be kept on appropriate carb counts diet and will continue with insulin as needed. The patient should have an opportunity to speak with special educator in order to receive meter and testing supplies. These have also have been ordered. The patient has been encouraged to ambulate. I will also order laboratory tests tomorrow including lipase. My concern though is that the patient does go home that she will continue to drink. To be appropriate for tomorrow discharge. 04/21/2020 Patient is continuing to improve. Abdominal pain is and nausea is improving. She is tolerating a regular diet and her lipase continues to decrease. She did have a significantly low potassium of 2.9 and magnesium of 1.5. Those will be replaced. Blood sugars continue to be elevated with her serum blood sugar of 232. Diabetic education was in to see her today. Continue CIWA protocol Stop pantoprazole since that can worsen hypopotassium and hypomagnesemia Start Lantus 10 units nightly Consider starting Metformin if nausea continues to improve. Continue on sliding scale insulin for now. 04/22/2020 Patient is asymptomatic. She was able to eat breakfast without pain. I discussed starting her on naltrexone for alcohol craving and she agreed. First dose was given in the hospital. Patient was also started on folic acid and thiamine for her macrocytic anemia and alcoholism. She has an appointment scheduled tomorrow with her primary care provider in next week with diabetic education. I am changing her Lantus to 10 units in the morning and she will increase that by 1 unit daily until her fasting blood sugars are approximately 110. She will be switched to short acting insulin, Novolin, sliding scale until she is seen by her primary care provider. C-peptide was low at 0.4 which may indicate she will require insulin therapy for life. This can be repeated as an outpatient. She was also counseled on alcohol cessation programs and given information for and [facility]. - Patient Instructions Diet: No Alcoholic Beverages, Diabetic Diet Activity: As Tolerated Driving: May Drive Today Showering/Bathing: May Shower Notify Provider of: Nausea and/or Vomiting Other/Special Instructions: Follow up with PCP tomorrow. Please get any new prescriptions for insulin supplies through her. Also, get a work note from your PCP. Start Lantus 10 units in the morning. Follow-up with your primary care provider and diabetic education. Initially you can increase your Lantus by 1 unit each morning until your blood sugars are around 110. You will also be given a short acting insulin, Humalog, to be taken initially as a sliding scale. Follow instructions provided. - Discharge Plan *PRESCRIPTION DRUG MONITORING PROGRAM REVIEWED*: No *COPY OF PRESCRIPTION DRUG MONITORING REPORT IN PATIENT HEMA: No Prescriptions/Med Rec: Folic Acid 1 mg PO BEDTIME #30 tablet Nicotine [Habitrol] 21 mg TRDERM 2100 #30 patch Insulin Lispro [HumaLOG] See Protocol SQ TIDAC #1 pen Insulin Glarg,Human.Rec.Analog [Lantus Solostar] 10 unit SUBCUT DAILY #1 pen Naltrexone 50 mg PO DAILY #30 tab Thiamine [Vitamin B-1] 100 mg PO BEDTIME #30 tablet Home Medications: Home Meds Folic Acid 1 mg PO BEDTIME #30 tablet 04/22/20 [Rx] Insulin Glarg,Human.Rec.Analog [Lantus Solostar] 10 unit SUBCUT DAILY #1 pen 04/22/20 [Rx] Insulin Lispro [HumaLOG] See Protocol SQ TIDAC #1 pen 04/22/20 [Rx] Naltrexone 50 mg PO DAILY #30 tab 04/22/20 [Rx] Nicotine [Habitrol] 21 mg TRDERM 2100 #30 patch 04/22/20 [Rx] Thiamine [Vitamin B-1] 100 mg PO BEDTIME #30 tablet 04/22/20 [Rx] Oxygen Therapy Mode: Room Air Patient Handouts: Type 2 Diabetes Mellitus, Diagnosis, Adult, Insulin Treatment for Diabetes Mellitus, Steps to Quit Smoking Referrals: Kalie Joy PA-C [Primary Care Provider] - 04/23/20 2:00 pm (Check in time 1:45 p.m. Please keep this appt. If unable to keep please call and re-schedule right away.) Susan Oliver RN [Registered Dietitian] - 04/30/20 1:00 pm (this appt. is [place] [facility] [place] [facility] [place] [facility], please arrive at 12:45 to check in for appt. time at 1 p.m. If unable to make this appt. please call and reschedule [phone]) - Discharge Summary/Plan Comment DC Time >30 min.: Yes (Time spent discussing follow-up, treatment, examination, and on paperwork f) Discharge Summary/Plan Comment: Follow-up with primary care provider tomorrow and diabetic education next week. - General Info Date of Service: 04/22/20 Admission Dx/Problem (Free Text: Admission Diagnosis/Problem Admission Diagnosis/Problem Pancreatitis Subjective Update: Denies nausea or pain. Functional Status: Reports: Pain Controlled - Review of Systems General: Reports: No Symptoms HEENT: Reports: No Symptoms Pulmonary: Reports: No Symptoms Cardiovascular: Reports: No Symptoms Gastrointestinal: Reports: No Symptoms Musculoskeletal: Reports: No Symptoms Neurological: Reports: No Symptoms Psychiatric: Reports: No Symptoms - Patient Data Vitals - Most Recent: Last Vital Signs Temp 98.2 F 04/22/20 10:58 Pulse 79 04/22/20 10:58 Resp 16 04/22/20 10:58 BP 130/96 H 04/22/20 10:58 Pulse Ox 98 04/22/20 10:58 Weight - Most Recent: 83.37 kg I&O - Last 24 hours: Intake & Output 04/21/20 04/22/20 04/22/20 22:59 06:59 14:59 Intake Total 1820 800 Output Total 1900 1150 Balance -80 -350 Lab Results - Last 24 hrs: Laboratory Results - last 24 hr 04/19/20 04/21/20 04/21/20 Range/Units 05:40 17:27 20:18 WBC (3.98-10.04) K/mm3 RBC (3.98-5.22) M/mm3 Hgb (11.2-15.7) gm/dl Hct (34.1-44.9) % MCV (79.4-94.8) fl MCH (25.6-32.2) pg MCHC (32.2-35.5) g/dl RDW Std Deviation (36.4-46.3) fL Plt Count (182-369) K/mm3 MPV (9.4-12.3) fl Neut % (Auto) (34.0-71.1) % Lymph % (Auto) (19.3-51.7) % [place] % (Auto) (4.7-12.5) % Eos % (Auto) (0.7-5.8) Baso % (Auto) (0.1-1.2) % Neut # (Auto) (1.56-6.13) K/mm3 Lymph # (Auto) (1.18-3.74) K/mm3 [place] # (Auto) (0.24-0.36) K/mm3 Eos # (Auto) (0.04-0.36) K/mm3 Baso # (Auto) (0.01-0.08) K/mm3 Manual Slide Review Sodium (136-145) mEq/L Potassium (3.5-5.1) mEq/L Chloride (98-107) mEq/L Carbon Dioxide (21-32) mEq/L Anion Gap (5-15) BUN (7-18) mg/dL Creatinine (0.55-1.02) mg/dL Est Cr Clr Drug Dosing mL/min Estimated GFR (MDRD) (>60) mL/min BUN/Creatinine Ratio (14-18) Glucose (74-106) mg/dL POC Glucose 165 H 207 H (70-105) mg/dL C-Peptide 0.4 L (1.1-4.4) ng/mL Calcium (8.5-10.1) mg/dL Magnesium (1.8-2.4) mg/dl Total Bilirubin (0.2-1.0) mg/dL AST (15-37) U/L ALT (14-59) U/L Alkaline Phosphatase (46-116) U/L Total Protein (6.4-8.2) g/dl Albumin (3.4-5.0) g/dl Globulin gm/dL Albumin/Globulin Ratio (1-2) 04/22/20 04/22/20 04/22/20 Range/Units 04:41 04:41 06:34 WBC 4.14 (3.98-10.04) K/mm3 RBC 3.61 L (3.98-5.22) M/mm3 Hgb 12.3 (11.2-15.7) gm/dl Hct 38.5 (34.1-44.9) % MCV 106.6 H (79.4-94.8) fl MCH 34.1 H (25.6-32.2) pg MCHC 31.9 L (32.2-35.5) g/dl RDW Std Deviation 49.1 H (36.4-46.3) fL Plt Count 178 L (182-369) K/mm3 MPV 10.6 (9.4-12.3) fl Neut % (Auto) 48.6 (34.0-71.1) % Lymph % (Auto) 37.0 (19.3-51.7) % [place] % (Auto) 12.6 H (4.7-12.5) % Eos % (Auto) 1.4 (0.7-5.8) Baso % (Auto) 0.2 (0.1-1.2) % Neut # (Auto) 2.01 (1.56-6.13) K/mm3 Lymph # (Auto) 1.53 (1.18-3.74) K/mm3 [place] # (Auto) 0.52 H (0.24-0.36) K/mm3 Eos # (Auto) 0.06 (0.04-0.36) K/mm3 Baso # (Auto) 0.01 (0.01-0.08) K/mm3 Manual Slide Review Abnormal smear Sodium 135 L (136-145) mEq/L Potassium 3.8 (3.5-5.1) mEq/L Chloride 99 (98-107) mEq/L Carbon Dioxide 25 (21-32) mEq/L Anion Gap 14.8 (5-15) BUN 1 L (7-18) mg/dL Creatinine 0.5 L (0.55-1.02) mg/dL Est Cr Clr Drug Dosing 139.97 mL/min Estimated GFR (MDRD) > 60 (>60) mL/min BUN/Creatinine Ratio 2.0 L (14-18) Glucose 184 H (74-106) mg/dL POC Glucose 157 H (70-105) mg/dL C-Peptide (1.1-4.4) ng/mL Calcium 8.8 (8.5-10.1) mg/dL Magnesium 1.8 (1.8-2.4) mg/dl Total Bilirubin 0.5 (0.2-1.0) mg/dL AST 35 (15-37) U/L ALT 26 (14-59) U/L Alkaline Phosphatase 103 (46-116) U/L Total Protein 6.6 (6.4-8.2) g/dl Albumin 2.7 L (3.4-5.0) g/dl Globulin 3.9 gm/dL Albumin/Globulin Ratio 0.7 L (1-2) Med Orders - Current: Current Medications Hydrocodone Bitart/Acetaminophen ([place] 325-5 Mg) 1 tab PO Q4H PRN PRN Reason: Pain Last Admin: 04/22/20 08:16 Dose: 1 tab Documented by: Albuterol/Ipratropium (Duoneb 3.0-0.5 Mg/3 Ml) 3 ml NEB Q4H PRN PRN Reason: Shortness Of Breath/wheezing Dextrose/Water (Dextrose 50% In Water) 50 ml IV ASDIRECTED PRN PRN Reason: Hypoglycemia Enoxaparin Sodium (Lovenox) 40 mg SUBCUT DAILY GENNY Last Admin: 04/22/20 08:15 Dose: 40 mg Documented by: Folic Acid (Folic Acid) 1 mg PO BEDTIME GENNY Glucagon (Glucagen) 1 mg IM ASDIRECTED PRN PRN Reason: Hypoglycemia Sodium Chloride (Normal Saline) 500 mls @ 125 mls/hr IV .BOLUS GENNY Last Admin: 04/21/20 16:17 Dose: 125 mls/hr Documented by: Insulin Glargine (Lantus) 10 unit SUBCUT BEDTIME [facility] Last Admin: 04/21/20 20:39 Dose: 10 units Documented by: Insulin Human Regular (Humulin R) 0 unit SUBCUT TID@0700,1100,1700 [facility]; Protocol Last Admin: 04/22/20 12:26 Dose: 3 unit Documented by: Lorazepam (Ativan) 0 mg IVPUSH Q4H PRN; Protocol PRN Reason: Withdrawal Symptoms Miscellaneous Information (Remove Patch) 0 ea TRDERM 2100 [facility] Last Admin: 04/21/20 20:25 Dose: 1 ea Documented by: Nicotine (Habitrol) 21 mg TRDERM 2100 [facility] Last Admin: 04/21/20 20:21 Dose: 21 mg Documented by: Ondansetron HCl (Zofran) 4 mg IV Q6H PRN PRN Reason: Nausea/Vomiting Last Admin: 04/19/20 12:05 Dose: 4 mg Documented by: Polyethylene Glycol (Miralax) 17 gm PO BID [facility] Last Admin: 04/22/20 08:10 Dose: Not Given Documented by: Potassium Chloride (Klor-Con M20) 20 meq PO DAILY [facility] Last Admin: 04/22/20 08:15 Dose: 20 meq Documented by: Sodium Chloride (Saline Flush) 10 ml FLUSH ASDIRECTED PRN PRN Reason: Keep Vein Open Last Admin: 04/18/20 10:07 Dose: 10 ml Documented by: Thiamine HCl (Vitamin B-1) 100 mg PO BEDTIME [facility] Discontinued Medications Famotidine (Pepcid) 20 mg IVPUSH ONETIME ONE Stop: 04/18/20 09:36 Last Admin: 04/18/20 10:07 Dose: 20 mg Documented by: Folic Acid (Folic Acid) 1 mg PO ONETIME ONE Stop: 04/22/20 10:01 Last Admin: 04/22/20 12:37 Dose: Not Given Documented by: Folic Acid (Folic Acid) 1 mg PO ONETIME ONE Stop: 04/22/20 12:46 Last Admin: 04/22/20 12:37 Dose: 1 mg Documented by: Hydromorphone HCl (Dilaudid) 0.5 mg IVPUSH ONETIME ONE Stop: 04/18/20 11:00 Last Admin: 04/18/20 11:06 Dose: 0.5 mg Documented by: Hydromorphone HCl (Dilaudid) 0.5 mg IVPUSH ONETIME ONE Stop: 04/18/20 13:14 Last Admin: 04/18/20 13:50 Dose: 0.5 mg Documented by: Hydromorphone HCl (Dilaudid) 0.5 mg IVPUSH Q2H PRN PRN Reason: Pain (severe 7-10) Last Admin: 04/20/20 11:20 Dose: 0.5 mg Documented by: Sodium Chloride (Normal Saline) 1,000 mls @ 999 mls/hr IV ONETIME GENNY Last Admin: 04/18/20 10:09 Dose: 999 mls/hr Documented by: Potassium Chloride 10 meq/ (Premix) 100 mls @ 50 mls/hr IV ASDIRECTED ONE Stop: 04/18/20 13:47 Last Admin: 04/18/20 11:57 Dose: 50 mls/hr Documented by: Sodium Chloride (Normal Saline) 1,000 mls @ 999 mls/hr IV ONETIME GENNY Last Admin: 04/18/20 11:55 Dose: 999 mls/hr Documented by: Sodium Chloride (Normal Saline) 1,000 mls @ 125 mls/hr IV ASDIRECTED [facility] Last Admin: 04/20/20 07:20 Dose: 125 mls/hr Documented by: Magnesium Sulfate (Magnesium Sulfate In Water Premix) 2 gm in 50 mls @ 25 mls/hr IV ONETIME ONE Stop: 04/18/20 16:59 Last Admin: 04/18/20 15:00 Dose: 25 mls/hr Documented by: Potassium Chloride 10 meq/ (Premix) 100 mls @ 100 mls/hr IV Q1H GENNY Stop: 04/19/20 01:29 Last Admin: 04/19/20 01:33 Dose: 100 mls/hr Documented by: Potassium Chloride 10 meq/ (Premix) 100 mls @ 100 mls/hr IV Q1H GENNY Stop: 04/19/20 16:29 Last Admin: 04/19/20 16:12 Dose: 100 mls/hr Documented by: Potassium Chloride 10 meq/ (Premix) 100 mls @ 100 mls/hr IV Q1H GENNY Stop: 04/20/20 10:29 Last Admin: 04/20/20 09:44 Dose: 100 mls/hr Documented by: Magnesium Sulfate (Magnesium Sulfate In Water Premix) 2 gm in 50 mls @ 25 mls/hr IV ONETIME ONE Stop: 04/20/20 18:44 Last Admin: 04/20/20 17:38 Dose: 25 mls/hr Documented by: Potassium Chloride 10 meq/ (Premix) 100 mls @ 100 mls/hr IV Q1H GENNY Stop: 04/21/20 14:59 Last Admin: 04/21/20 18:24 Dose: 100 mls/hr Documented by: Magnesium Sulfate 4 gm/ Premix 50 mls @ 12.5 mls/hr IV ONETIME ONE Stop: 04/21/20 14:59 Last Admin: 04/21/20 12:57 Dose: 12.5 mls/hr Documented by: Insulin Human Regular (Humulin R) 0 unit SUBCUT [facility]; Protocol Last Admin: 04/18/20 20:42 Dose: 3 unit Documented by: Lorazepam (Ativan) 1 mg IVPUSH ONETIME ONE Stop: 04/18/20 13:14 Last Admin: 04/18/20 13:24 Dose: 1 mg Documented by: Lorazepam (Ativan) 1 mg IV Q6H PRN PRN Reason: Nausea/Vomiting Magnesium Sulfate (Magnesium Sulfate In Water Premix) 2 gm IV ONETIME ONE Stop: 04/20/20 17:01 Miscellaneous Information (Remove Patch) 0 ea TRDERM DAILY [facility] Last Admin: 04/19/20 08:45 Dose: 1 ea Documented by: Naltrexone HCl (Naltrexone) 50 mg PO ONETIME ONE Stop: 04/22/20 12:01 Last Admin: 04/22/20 12:27 Dose: 50 mg Documented by: Nicotine (Habitrol) 21 mg TRDERM DAILY [facility] Last Admin: 04/19/20 08:45 Dose: 21 mg Documented by: Nicotine (Habitrol) 21 mg TRDERM ONETIME ONE Stop: 04/19/20 18:37 Last Admin: 04/19/20 18:55 Dose: 21 mg Documented by: Ondansetron HCl (Zofran) 4 mg IVPUSH ONETIME ONE Stop: 04/18/20 09:36 Last Admin: 04/18/20 10:05 Dose: 4 mg Documented by: Pantoprazole Sodium (Protonix Iv) 40 mg IVPUSH Q12H [facility] Last Admin: 04/21/20 02:23 Dose: 40 mg Documented by: Potassium Chloride (Klor-Con M20) 40 meq PO BID [facility] Stop: 04/22/20 09:01 Last Admin: 04/22/20 08:15 Dose: 40 meq Documented by: Thiamine HCl (Vitamin B-1) 100 mg PO ONETIME ONE Stop: 04/22/20 10:01 Last Admin: 04/22/20 12:38 Dose: Not Given Documented by: Thiamine HCl (Vitamin B-1) 100 mg PO ONETIME ONE Stop: 04/22/20 12:46 Last Admin: 04/22/20 12:37 Dose: 100 mg Documented by: - Exam Quality Assessment: Denies: Supplemental Oxygen General: Reports: Alert, Oriented HEENT: Reports: Pupils Equal, Mucous Membr. Moist/[place] Neck: Reports: Supple Lungs: Reports: Clear to Auscultation, Normal Respiratory Effort Cardiovascular: Reports: Regular Rate, Regular Rhythm GI/Abdominal Exam: Normal Bowel Sounds, Soft, Non-Tender, No Organomegaly, No Distention, No Abnormal Bruit, No Mass Back Exam: Reports: Normal Inspection, Full Range of Motion Extremities: Normal Inspection, Normal Range of Motion, Non-Tender, No Pedal Edema, Normal Capillary Refill Skin: Reports: Warm, Dry, Intact Psy/Mental Status: Reports: Alert, Normal Affect, Normal Mood
[2020-04-22] MEDS ORDERED: Thiamine 100 MG Tab PO SCH (21:00)
[2020-04-22] MEDS ORDERED: Folic Acid 1 MG Tab PO SCH (21:00)
== END 2020-04-22 13:25 | disposition home or self-care (01) | DRG 282 ==
LOC: JD.ED 09:02 → JD.MS 13:56
PROVIDERS: ADMIT Internal Medicine; ATTEND Internal Medicine
DX: K85.20 Alcohol induced acute pancreatitis without necrosis or infection (principal); Y90.0 Blood alcohol level of less than 20 mg/100 ml; E11.9 Type 2 diabetes mellitus without complications; E87.6 Hypokalemia; F10.239 Alcohol dependence with withdrawal, unspecified; E83.42 Hypomagnesemia; R56.9 Unspecified convulsions; D53.9 Nutritional anemia, unspecified; H54.7 Unspecified visual loss; E66.9 Obesity, unspecified; F17.210 Nicotine dependence, cigarettes, uncomplicated; F12.929 Cannabis use, unspecified with intoxication, unspecified; E86.0 Dehydration; F41.9 Anxiety disorder, unspecified; Z71.41 Alcohol abuse counseling and surveillance of alcoholic; Z79.01 Long term (current) use of anticoagulants; Z68.30 Body mass index [BMI] 30.0-30.9, adult; Z20.828 Contact with and (suspected) exposure to other viral communicable diseases
CPT/HCPCS: 36415; 80053; 80307; 81001; 82962; 83036; 83690; 83735; 84681; 85025; 85610; 96365; 96375; 96376; 99284; 99284-25; A9270-GY; C9113; J1170; J1650; J1815-GY; J2060; J2405; J3475; J3480; J3490; J7030; J7040; U0002

== ENCOUNTER 2021-07-10 13:22 | Emergency (ER) | payer OTHER ==
[2021-07-10] MEDS ORDERED: Sodium Chloride 0.9% 10 ML Syringe FLUSH PRN ×2 (14:21→14:51)
[2021-07-10] MEDS ORDERED: Ondansetron 4 MG/2 ML SDV IVPUSH ONE (14:51)
[2021-07-10] MEDS ORDERED: Sodium Chloride 0.9% 1,000 ML IV ONE ×2 (14:51→16:29)
[2021-07-10] MEDS ORDERED: HYDROmorphone 0.5 MG/0.5 ML Syringe IVPUSH ONE ×2 (14:51→17:34)
[2021-07-10] MEDS ORDERED: Iopamidol 612 MG/ML 100 ML Bottle IVPUSH ONE (14:59)
[2021-07-10] MEDS ORDERED: Magnesium Sulfate/Water 4 GM in Premix Bag 1 BAG IV ONE (15:21)
[2021-07-10] MEDS: Potassium Chloride 10 MEQ in Premix Bag 1 BAG IV SCH ×4 (15:25→19:28)
[2021-07-10] MEDS ORDERED: Nicotine 21 MG/24 Hr Patch TRDERM ONE (17:42)
[2021-07-10] MEDS ORDERED: LORazepam 2 MG/ML SDV IVPUSH ONE (18:15)
[2021-07-10] MEDS ORDERED: Potassium Chloride 20 MEQ Tab.ER PO ONE (18:46)
[2021-07-10] MEDS ORDERED: Sodium Chloride 0.9% 1,000 ML IV SCH (19:00)
[2021-07-10 19:07] VITALS: BP 113/97; PULSE 97
[2021-07-10] MEDS: Ondansetron 4 MG/2 ML SDV IVPUSH ONE (19:40)
[2021-07-10] MEDS: Ondansetron 4 MG/2 ML SDV ONE (19:50)
[2021-07-11] MEDS: Ondansetron 4 MG/2 ML SDV ONE (02:17)
[2021-07-11] MEDS: Ondansetron 4 MG/2 ML SDV IVPUSH ONE (02:18)
== END 2021-07-10 19:45 ==
LOC: JD.ED 13:22
DX: K85.20 Alcohol induced acute pancreatitis without necrosis or infection (principal); E87.6 Hypokalemia; E87.1 Hypo-osmolality and hyponatremia; E83.42 Hypomagnesemia; E11.9 Type 2 diabetes mellitus without complications; E66.9 Obesity, unspecified; Z68.29 Body mass index [BMI] 29.0-29.9, adult; Z79.4 Long term (current) use of insulin; Z72.0 Tobacco use; Z20.822 Contact with and (suspected) exposure to COVID-19
CPT/HCPCS: 36415; 74177; 80053; 80307; 81001; 83690; 83735; 85025; 86140; 87635; 96365; 96366; 96368; 96375; 96376; 99285; A9270; J1170; J2060; J2405; J3475; J3480; J7030; Q9967; U0002

== ENCOUNTER 2021-07-25 09:35 | Inpatient (IN) | payer OTHER ==
[2021-07-25] MEDS ORDERED: Sodium Chloride 0.9% 10 ML Syringe FLUSH PRN ×2 (11:10→13:10)
[2021-07-25] MEDS ORDERED: Sodium Chloride 0.9% 1,000 ML IV ONE (11:10)
[2021-07-25] MEDS ORDERED: Magnesium Sulfate/Water 4 GM in Premix Bag 1 BAG IV ONE (12:36)
[2021-07-25] MEDS ORDERED: HYDROmorphone 0.5 MG/0.5 ML Syringe IVPUSH ONE ×2 (12:52→17:26)
[2021-07-25] MEDS ORDERED: Metoclopramide 10 MG/2 ML SDV IVPUSH ONE (12:52)
[2021-07-25] MEDS ORDERED: Sodium Chloride 0.9% 1,000 ML IV SCH (13:00)
[2021-07-25] MEDS ORDERED: Iopamidol 612 MG/ML 100 ML Bottle IVPUSH ONE (13:10)
[2021-07-25] MEDS: Potassium Chloride 10 MEQ in Premix Bag 1 BAG IV SCH ×7 (13:18→23:39)
[2021-07-25] MEDS ORDERED: Nicotine 14 MG/24 Hr Patch TRDERM ONE (15:42)
[2021-07-25 16:29] LABS: CORONAVIRUS COVID-19 NAA NEGATIVE (NEGATIVE)
[2021-07-25] MEDS ORDERED: Ondansetron 4 MG/2 ML SDV IVPUSH ONE (17:26)
[2021-07-25] MEDS ORDERED: Pantoprazole 40 MG Vial ONE (20:07)
[2021-07-25] MEDS ORDERED: LORazepam 2 MG/ML SDV IVPUSH ONE (20:26)
[2021-07-25] MEDS ORDERED: Dextrose 5%-0.9% NaCl with KCl 1,000 ML IV SCH (20:30)
[2021-07-25] MEDS ORDERED: Magnesium Sulfate (4.06 MEQ/ML) 5 GM/10 ML SDV IV SCH (20:30)
[2021-07-25] MEDS: Ketorolac 30 MG/ML SDV IVPUSH PRN (21:15)
[2021-07-25] MEDS: Magnesium Sulfate/Water 50 ML IV SCH ×2 (21:45→22:28)
[2021-07-25] MEDS: Dextrose 5%-0.45% NaCl 1,000 ML IV SCH (22:00)
[2021-07-26] MEDS: Potassium Chloride 10 MEQ in Premix Bag 1 BAG IV SCH ×7 (00:48→17:25)
[2021-07-26] MEDS: Morphine 2 MG/ML SYRINGE IVPUSH PRN ×3 (01:41→08:20)
[2021-07-26] MEDS: Ketorolac 30 MG/ML SDV IVPUSH PRN ×3 (03:56→17:00)
[2021-07-26] MEDS: Dextrose 5%-0.45% NaCl 1,000 ML IV SCH ×3 (06:02→21:43)
[2021-07-26] MEDS: Nicotine 14 MG/24 Hr Patch TRDERM SCH (08:19)
[2021-07-26] MEDS: Enoxaparin 40 MG/0.4 ML Syringe SUBCUT SCH (08:20)
[2021-07-26] MEDS: Insulin Glargine,Hum.Rec.Anlog 100 UNIT/ML 3 ML Pen SUBCUT SCH (08:20)
[2021-07-26] MEDS ORDERED: Insulin Glargine,Human Rec. Analog 100 Units/ML 3 ML Pen SUBCUT SCH (09:00)
[2021-07-26] MEDS: hydrOXYzine HCl 25 MG/ML SDV IM PRN ×2 (09:57→17:04)
[2021-07-26] MEDS: HYDROmorphone 0.5 MG/0.5 ML Syringe IVPUSH PRN ×3 (13:48→21:52)
[2021-07-26] MEDS: LORazepam 2 MG/ML SDV IV PRN ×2 (14:49→21:38)
[2021-07-27] MEDS: Ketorolac 30 MG/ML SDV IVPUSH PRN ×4 (00:06→21:00)
[2021-07-27] MEDS: hydrOXYzine HCl 25 MG/ML SDV IM PRN ×2 (00:06→13:21)
[2021-07-27] MEDS: HYDROmorphone 0.5 MG/0.5 ML Syringe IVPUSH PRN ×5 (03:16→17:58)
[2021-07-27] MEDS: LORazepam 2 MG/ML SDV IV PRN ×3 (05:34→20:57)
[2021-07-27] MEDS: Dextrose 5%-0.45% NaCl 1,000 ML IV SCH ×3 (05:47→22:05)
[2021-07-27] MEDS: Nicotine 14 MG/24 Hr Patch TRDERM SCH (09:10)
[2021-07-27] MEDS: Enoxaparin 40 MG/0.4 ML Syringe SUBCUT SCH (09:10)
[2021-07-27] MEDS: Insulin Glargine,Hum.Rec.Anlog 100 UNIT/ML 3 ML Pen SUBCUT SCH (09:12)
[2021-07-28] MEDS: hydrOXYzine HCl 25 MG/ML SDV IM PRN (00:04)
[2021-07-28] MEDS: HYDROmorphone 0.5 MG/0.5 ML Syringe IVPUSH PRN ×5 (00:05→15:23)
[2021-07-28] MEDS: Dextrose 5%-0.45% NaCl 1,000 ML IV SCH ×3 (06:30→23:15)
[2021-07-28] MEDS: LORazepam 2 MG/ML SDV IV PRN ×3 (06:32→21:10)
[2021-07-28] MEDS: Ketorolac 30 MG/ML SDV IVPUSH PRN ×3 (06:33→21:09)
[2021-07-28] MEDS: Insulin Glargine,Hum.Rec.Anlog 100 UNIT/ML 3 ML Pen SUBCUT SCH (08:08)
[2021-07-28] MEDS: Enoxaparin 40 MG/0.4 ML Syringe SUBCUT SCH (08:09)
[2021-07-28] MEDS: Nicotine 14 MG/24 Hr Patch TRDERM SCH (08:10)
[2021-07-28] MEDS ORDERED: Magnesium Sulfate/Water 4 GM in Premix Bag 1 BAG IV ONE (09:51)
[2021-07-28] MEDS: Potassium Chloride 10 MEQ in Premix Bag 1 BAG IV SCH ×4 (12:01→15:37)
[2021-07-29] MEDS: HYDROmorphone 0.5 MG/0.5 ML Syringe IVPUSH PRN ×6 (00:44→18:36)
[2021-07-29 06:15] LABS: HEMOGLOBIN A1C 6.1 %
[2021-07-29] MEDS: Ketorolac 30 MG/ML SDV IVPUSH PRN ×3 (06:38→22:10)
[2021-07-29] MEDS: Dextrose 5%-0.45% NaCl 1,000 ML IV SCH (07:20)
[2021-07-29] MEDS ORDERED: Magnesium Sulfate/Water 4 GM in Premix Bag 1 BAG IV ONE (08:30)
[2021-07-29] MEDS: Potassium Chloride 10 MEQ in Premix Bag 1 BAG IV SCH ×4 (08:47→11:58)
[2021-07-29] MEDS: Insulin Glargine,Hum.Rec.Anlog 100 UNIT/ML 3 ML Pen SUBCUT SCH (08:53)
[2021-07-29] MEDS: Enoxaparin 40 MG/0.4 ML Syringe SUBCUT SCH (08:53)
[2021-07-29] MEDS: Nicotine 14 MG/24 Hr Patch TRDERM SCH (08:53)
[2021-07-29] MEDS ORDERED: Bisacodyl 10 MG Supp RECTAL ONE (09:59)
[2021-07-29] MEDS: LORazepam 2 MG/ML SDV IV PRN ×2 (11:49→18:27)
[2021-07-30] MEDS: HYDROmorphone 0.5 MG/0.5 ML Syringe IVPUSH PRN ×5 (00:01→15:05)
[2021-07-30] MEDS: LORazepam 2 MG/ML SDV IV PRN ×3 (02:18→15:05)
[2021-07-30] MEDS: Ketorolac 30 MG/ML SDV IVPUSH PRN ×3 (07:34→20:18)
[2021-07-30] MEDS: Nicotine 14 MG/24 Hr Patch TRDERM SCH (08:40)
[2021-07-30] MEDS: Enoxaparin 40 MG/0.4 ML Syringe SUBCUT SCH (08:40)
[2021-07-30] MEDS: Insulin Glargine,Hum.Rec.Anlog 100 UNIT/ML 3 ML Pen SUBCUT SCH (08:41)
[2021-07-30] MEDS: Insulin Lispro 100 Unit/ML 3 ML KwikPen SUBCUT SCH ×4 (09:12→22:45)
[2021-07-30] MEDS ORDERED: Magnesium Sulfate/Water 2 GM in Premix Bag 1 BAG IV ONE (10:53)
[2021-07-30] MEDS: LORazepam 1 MG Tab PO PRN ×2 (19:58→23:49)
[2021-07-30] MEDS: oxyCODONE 5 MG Tab PO PRN ×2 (19:58→23:50)
[2021-07-31] MEDS ORDERED: Magnesium Hydroxide 400 MG/5 ML Susp 30 ML Cup PO ONE (02:36)
[2021-07-31] MEDS: LORazepam 1 MG Tab PO PRN ×3 (04:50→15:14)
[2021-07-31] MEDS: oxyCODONE 5 MG Tab PO PRN ×3 (04:50→15:14)
[2021-07-31] MEDS: Magnesium Hydroxide 400 MG/5 ML Susp 30 ML Cup PO ONE ×2 (04:51→06:16)
[2021-07-31 06:23] VITALS: BP 96/73; PULSE 86
[2021-07-31] MEDS: Enoxaparin 40 MG/0.4 ML Syringe SUBCUT SCH (07:59)
[2021-07-31] MEDS: Nicotine 14 MG/24 Hr Patch TRDERM SCH (07:59)
[2021-07-31] MEDS: Insulin Glargine,Hum.Rec.Anlog 100 UNIT/ML 3 ML Pen SUBCUT SCH (08:00)
[2021-07-31] MEDS: Insulin Lispro 100 Unit/ML 3 ML KwikPen SUBCUT SCH ×2 (08:45→13:29)
== END 2021-07-31 16:59 | disposition home or self-care (01) | DRG 439 ==
LOC: JD.ED 09:35 → JD.MS 15:19
PROVIDERS: ADMIT Pediatrics; ATTEND Pediatrics
DX: K85.21 Alcohol induced acute pancreatitis with uninfected necrosis (principal); B17.9 Acute viral hepatitis, unspecified; F10.230 Alcohol dependence with withdrawal, uncomplicated; I10 Essential (primary) hypertension; K29.70 Gastritis, unspecified, without bleeding; G40.909 Epilepsy, unspecified, not intractable, without status epilepticus; F41.9 Anxiety disorder, unspecified; E66.9 Obesity, unspecified; E83.42 Hypomagnesemia; K21.9 Gastro-esophageal reflux disease without esophagitis; Z20.822 Contact with and (suspected) exposure to COVID-19; E11.9 Type 2 diabetes mellitus without complications; F17.210 Nicotine dependence, cigarettes, uncomplicated; F12.90 Cannabis use, unspecified, uncomplicated; L98.9 Disorder of the skin and subcutaneous tissue, unspecified; Z90.49 Acquired absence of other specified parts of digestive tract; Z68.26 Body mass index [BMI] 26.0-26.9, adult; Z79.4 Long term (current) use of insulin; Z79.899 Other long term (current) drug therapy; Z87.19 Personal history of other diseases of the digestive system; Z87.440 Personal history of urinary (tract) infections; Z85.89 Personal history of malignant neoplasm of other organs and systems
CPT/HCPCS: 0240U; 36415; 74177; 74177-26; 80053; 81001; 82150; 82947; 83036; 83690; 83735; 84100; 84484; 85025; 85652; 86140; 93005; 93010; 96365; 96366; 96367; 96375; 97161-GP; 99285; 99285-25; A9270-GY; C9113; J1170; J1650; J1815; J1885; J2060; J2270; J2405; J2765; J3410; J3475; J3480; J7030; J7042; Q9967

== ENCOUNTER 2021-08-11 18:26 | Inpatient (IN) | payer OTHER ==
[2021-08-11] MEDS ORDERED: Sodium Chloride 0.9% 10 ML Syringe FLUSH PRN (18:54)
[2021-08-11] MEDS ORDERED: HYDROmorphone 1 MG/ML Syringe IVPUSH STA (18:54)
[2021-08-11] MEDS ORDERED: Ondansetron 4 MG/2 ML SDV IVPUSH ONE (18:54)
[2021-08-11] MEDS ORDERED: Sodium Chloride 0.9% 1,000 ML IV SCH (19:00)
[2021-08-11] MEDS ORDERED: Iopamidol 612 MG/ML 100 ML Bottle IVPUSH ONE (19:02)
[2021-08-11] MEDS ORDERED: Sodium Chloride 0.9% 10 ML Syringe FLUSH ONE (19:02)
[2021-08-11] MEDS ORDERED: Sodium Chloride 0.9% 100 ML IV SCH (19:15)
[2021-08-11] MEDS ORDERED: Potassium Chloride 20 MEQ Tab.ER PO ONE (20:24)
[2021-08-11] MEDS ORDERED: Nicotine 21 MG/24 Hr Patch TRDERM ONE (20:24)
[2021-08-11] MEDS ORDERED: Pantoprazole 40 MG Vial IVPUSH ONE (20:38)
[2021-08-11] MEDS ORDERED: HYDROmorphone 0.5 MG/0.5 ML Syringe IVPUSH ONE (20:51)
[2021-08-11] MEDS: NS + KCl 20mEq/L 1,000 ML IV SCH (21:03)
[2021-08-11] MEDS ORDERED: LORazepam 2 MG/ML SDV IVPUSH ONE (21:15)
[2021-08-11 21:38] LABS: CORONAVIRUS COVID-19 NAA NEGATIVE (NEGATIVE)
[2021-08-11] MEDS ORDERED: Insulin Lispro 100 Unit/ML 3 ML KwikPen SUBCUT SCH (22:00)
[2021-08-11] MEDS: HYDROmorphone 1 MG/ML Syringe IVPUSH PRN (23:04)
[2021-08-12] MEDS: Insulin Lispro 100 Unit/ML 3 ML KwikPen SUBCUT SCH ×6 (00:38→23:50)
[2021-08-12] MEDS: NS + KCl 20mEq/L 1,000 ML IV SCH ×3 (02:22→20:24)
[2021-08-12] MEDS: HYDROmorphone 1 MG/ML Syringe IVPUSH PRN ×3 (02:22→08:58)
[2021-08-12] MEDS: Ondansetron 4 MG/2 ML SDV IVPUSH PRN ×4 (02:22→23:50)
[2021-08-12] MEDS ORDERED: diphenhydrAMINE 25 MG Cap PO PRN (08:23)
[2021-08-12] MEDS ORDERED: Naloxone 0.4 MG/ML SDV IVPUSH PRN (08:23)
[2021-08-12] MEDS ORDERED: diphenhydrAMINE 50 MG/ML SDV IVPUSH PRN (08:23)
[2021-08-12] MEDS ORDERED: Ondansetron 4 MG/2 ML SDV IVPUSH PRN (08:23)
[2021-08-12] MEDS ORDERED: Lactated Ringers 1,000 ML IV ONE ×2 (08:34→10:07)
[2021-08-12] MEDS: Nicotine 14 MG/24 Hr Patch TRDERM SCH (08:56)
[2021-08-12] MEDS: Pantoprazole 40 MG Vial IVPUSH SCH ×2 (08:58→20:41)
[2021-08-12] MEDS ORDERED: Lactated Ringers 1,000 ML ONE (10:05)
[2021-08-12] MEDS: Enoxaparin 30 MG/0.3 ML Syringe SUBCUT SCH ×2 (10:09→20:46)
[2021-08-12] MEDS: HYDROmorphone/Normal Saline 6 MG/30 ML PCA Vial IV PRN ×2 (12:15→21:12)
[2021-08-13] MEDS: NS + KCl 20mEq/L 1,000 ML IV SCH ×3 (02:51→22:27)
[2021-08-13] MEDS: Insulin Lispro 100 Unit/ML 3 ML KwikPen SUBCUT SCH ×4 (05:51→20:19)
[2021-08-13] MEDS: Ondansetron 4 MG/2 ML SDV IVPUSH PRN ×2 (05:55→12:59)
[2021-08-13] MEDS: HYDROmorphone/Normal Saline 6 MG/30 ML PCA Vial IV PRN ×2 (08:18→23:17)
[2021-08-13] MEDS ORDERED: Metoclopramide 10 MG/2 ML SDV IVPUSH PRN (08:39)
[2021-08-13] MEDS: Nicotine 14 MG/24 Hr Patch TRDERM SCH (08:46)
[2021-08-13] MEDS: Pantoprazole 40 MG Vial IVPUSH SCH ×2 (08:50→20:20)
[2021-08-13] MEDS: Enoxaparin 30 MG/0.3 ML Syringe SUBCUT SCH ×3 (08:50→23:15)
[2021-08-13] MEDS ORDERED: Magnesium Sulfate/Water 4 GM in Premix Bag 1 BAG IV ONE (09:00)
[2021-08-13] MEDS: LORazepam 2 MG/ML SDV IVPUSH PRN ×2 (09:22→20:36)
[2021-08-14] MEDS: LORazepam 2 MG/ML SDV IVPUSH PRN ×3 (03:04→14:46)
[2021-08-14] MEDS: Insulin Lispro 100 Unit/ML 3 ML KwikPen SUBCUT SCH ×4 (07:30→20:57)
[2021-08-14] MEDS: Nicotine 14 MG/24 Hr Patch TRDERM SCH (08:59)
[2021-08-14] MEDS: NS + KCl 20mEq/L 1,000 ML IV SCH (08:59)
[2021-08-14] MEDS: Enoxaparin 30 MG/0.3 ML Syringe SUBCUT SCH ×2 (09:00→20:53)
[2021-08-14] MEDS: Pantoprazole 40 MG Vial IVPUSH SCH (09:00)
[2021-08-14] MEDS: oxyCODONE 5 MG Tab PO PRN ×3 (09:14→20:52)
[2021-08-14] MEDS: HYDROmorphone 0.5 MG/0.5 ML Syringe IVPUSH PRN ×3 (13:42→23:48)
[2021-08-14] MEDS: LORazepam 1 MG Tab PO PRN (20:50)
[2021-08-15] MEDS: LORazepam 1 MG Tab PO PRN ×5 (01:12→21:21)
[2021-08-15] MEDS: HYDROmorphone 0.5 MG/0.5 ML Syringe IVPUSH PRN ×5 (03:19→23:39)
[2021-08-15] MEDS: oxyCODONE 5 MG Tab PO PRN ×4 (04:40→21:20)
[2021-08-15] MEDS: Nicotine 14 MG/24 Hr Patch TRDERM SCH (08:42)
[2021-08-15] MEDS: Pantoprazole 40 MG Tab.CR PO SCH (08:43)
[2021-08-15] MEDS: Insulin Lispro 100 Unit/ML 3 ML KwikPen SUBCUT SCH ×4 (08:45→21:16)
[2021-08-15] MEDS: Enoxaparin 30 MG/0.3 ML Syringe SUBCUT SCH ×2 (08:46→21:17)
[2021-08-15] MEDS ORDERED: Magnesium Sulfate/Water 2 GM in Premix Bag 1 BAG IV ONE (09:34)
[2021-08-16] MEDS: LORazepam 1 MG Tab PO PRN ×4 (01:41→14:42)
[2021-08-16] MEDS: oxyCODONE 5 MG Tab PO PRN ×4 (01:41→14:42)
[2021-08-16] MEDS: HYDROmorphone 0.5 MG/0.5 ML Syringe IVPUSH PRN ×5 (02:42→15:44)
[2021-08-16] MEDS: Insulin Lispro 100 Unit/ML 3 ML KwikPen SUBCUT SCH ×2 (08:09→11:09)
[2021-08-16] MEDS: Nicotine 14 MG/24 Hr Patch TRDERM SCH (08:11)
[2021-08-16] MEDS: Pantoprazole 40 MG Tab.CR PO SCH (08:11)
[2021-08-16] MEDS: Enoxaparin 30 MG/0.3 ML Syringe SUBCUT SCH (09:58)
[2021-08-16] MEDS ORDERED: Magnesium Hydroxide 400 MG/5 ML Susp 30 ML Cup PO ONE (10:06)
[2021-08-16 13:50] VITALS: BP 118/89; PULSE 95
== END 2021-08-16 16:00 | disposition home or self-care (01) | DRG 440 ==
LOC: JD.ED 18:26 → JD.MS 21:52
PROVIDERS: ADMIT Family Medicine; ATTEND Family Medicine
DX: K85.90 Acute pancreatitis without necrosis or infection, unspecified (principal); E87.6 Hypokalemia; H54.7 Unspecified visual loss; K21.9 Gastro-esophageal reflux disease without esophagitis; F41.0 Panic disorder [episodic paroxysmal anxiety]; E83.42 Hypomagnesemia; E11.9 Type 2 diabetes mellitus without complications; F17.200 Nicotine dependence, unspecified, uncomplicated; Z20.822 Contact with and (suspected) exposure to COVID-19; Z79.4 Long term (current) use of insulin; Z90.49 Acquired absence of other specified parts of digestive tract
CPT/HCPCS: 0240U; 36415; 74177; 74177-26; 80053; 80307; 81001; 81025; 82947; 82977; 83690; 83735; 85025; 86140; 87086; 94762; 96365; 96375; 96376; 99285-25; A9270-GY; C9113; J1170; J1650; J1815; J2060; J2405; J2765; J3475; J3480; J7030; J7120; Q9967

== ENCOUNTER 2021-11-14 21:24 | Emergency (ER) | payer OTHER ==
[2021-11-14] MEDS ORDERED: Sodium Chloride 0.9% 10 ML Syringe FLUSH PRN (21:34)
[2021-11-14] MEDS ORDERED: Sodium Chloride 0.9% 1,000 ML IV STA (21:50)
[2021-11-14] MEDS ORDERED: HYDROmorphone 1 MG/ML Syringe IVPUSH ONE (21:52)
[2021-11-14] MEDS ORDERED: Metoclopramide 10 MG/2 ML SDV IVPUSH ONE (21:52)
[2021-11-14] MEDS ORDERED: Magnesium Sulfate/Water 4 GM in Premix Bag 1 BAG IV ONE (22:59)
[2021-11-14] MEDS ORDERED: NS with KCl 40mEq 1,000 ML IV SCH (23:00)
[2021-11-14] MEDS ORDERED: Ketorolac 30 MG/ML SDV IVPUSH ONE (23:06)
[2021-11-14] MEDS ORDERED: Nicotine 14 MG/24 Hr Patch TRDERM ONE (23:42)
[2021-11-15] MEDS ORDERED: HYDROmorphone 1 MG/ML Syringe IVPUSH ONE (01:25)
[2021-11-15 04:26] VITALS: BP 124/74; PULSE 78
== END 2021-11-15 04:25 ==
LOC: JD.ED 21:24
DX: K86.1 Other chronic pancreatitis (principal); E87.6 Hypokalemia; E83.42 Hypomagnesemia; F17.210 Nicotine dependence, cigarettes, uncomplicated; E11.9 Type 2 diabetes mellitus without complications; Z79.899 Other long term (current) drug therapy; Z79.4 Long term (current) use of insulin; Z90.49 Acquired absence of other specified parts of digestive tract
CPT/HCPCS: 36415; 74177; 80053; 81001; 83690; 83735; 84703; 85025; 86140; 96361; 96365; 96366; 96368; 96375; 96376; 99285; A9270; J1170; J1885; J2765; J3475; J3480; J3490; J7030; 99284

== ENCOUNTER 2021-11-30 20:16 | Emergency (ER) | payer OTHER ==
[2021-11-30] MEDS ORDERED: Sodium Chloride 0.9% 1,000 ML IV STA (20:47)
[2021-11-30] MEDS ORDERED: Sodium Chloride 0.9% 10 ML Syringe FLUSH PRN (20:47)
[2021-11-30] MEDS ORDERED: Ondansetron 4 MG/2 ML SDV IVPUSH ONE (20:47)
[2021-11-30] MEDS ORDERED: Nicotine 21 MG/24 Hr Patch TRDERM ONE (20:49)
[2021-11-30] MEDS ORDERED: HYDROmorphone 1 MG/ML Syringe IVPUSH ONE (20:49)
[2021-11-30] MEDS ORDERED: LORazepam 2 MG/ML SDV IVPUSH ONE (20:49)
[2021-11-30] MEDS ORDERED: Iopamidol 612 MG/ML 100 ML Bottle IVPUSH ONE (20:56)
[2021-11-30] MEDS ORDERED: Sodium Chloride 0.9% 10 ML Syringe FLUSH ONE (20:56)
[2021-11-30 22:04] LABS: ESTIMATED GFR > 60 mL/min (>60)
[2021-11-30] MEDS ORDERED: HYDROmorphone 0.5 MG/0.5 ML Syringe IVPUSH ONE (23:22)
[2021-11-30] MEDS ORDERED: Metoclopramide 10 MG/2 ML SDV IVPUSH ONE (23:27)
[2021-11-30] MEDS ORDERED: Metoclopramide 10 MG/2 ML SDV ONE (23:29)
[2021-11-30] MEDS ORDERED: Sodium Chloride 0.9% 1,000 ML IV SCH (23:30)
[2021-12-01 00:03] VITALS: BP 142/100; PULSE 88
== END 2021-11-30 23:38 ==
LOC: JD.ED 20:16
DX: I81 Portal vein thrombosis (principal); K86.1 Other chronic pancreatitis; K86.3 Pseudocyst of pancreas; E11.9 Type 2 diabetes mellitus without complications; F17.210 Nicotine dependence, cigarettes, uncomplicated; Z79.01 Long term (current) use of anticoagulants; Z79.4 Long term (current) use of insulin; Z20.822 Contact with and (suspected) exposure to COVID-19
CPT/HCPCS: 36415; 74177; 80053; 80307; 81001; 83690; 83735; 84703; 85025; 85610; 85730; 87635; 96361; 96374; 96375; 96376; 99285; A9270; J1170; J2060; J2405; J2765; J3490; J7030; Q9967; U0002

== ENCOUNTER 2021-12-20 01:05 | Inpatient (IN) | payer OTHER ==
[2021-12-20] MEDS ORDERED: HYDROmorphone 1 MG/ML Syringe IVPUSH STA (01:41)
[2021-12-20] MEDS ORDERED: Ondansetron 4 MG/2 ML SDV IVPUSH ONE ×3 (01:41→16:16)
[2021-12-20] MEDS: Sodium Chloride 0.9% 1,000 ML IV SCH ×3 (01:47→23:14)
[2021-12-20] MEDS ORDERED: LORazepam 2 MG/ML SDV IVPUSH STA (02:40)
[2021-12-20] MEDS ORDERED: Nicotine 14 MG/24 Hr Patch TRDERM ONE (02:41)
[2021-12-20] MEDS: Potassium Chloride 10 MEQ in Premix Bag 1 BAG IV SCH ×4 (02:51→06:17)
[2021-12-20] MEDS ORDERED: HYDROmorphone 1 MG/ML Syringe IVPUSH ONE ×2 (03:46→06:45)
[2021-12-20] MEDS ORDERED: Magnesium Sulfate/Water 2 GM in Premix Bag 1 BAG IV ONE (08:27)
[2021-12-20] MEDS ORDERED: HYDROmorphone 0.5 MG/0.5 ML Syringe IVPUSH ONE (08:40)
[2021-12-20] MEDS ORDERED: Lactated Ringers 1,000 ML IV SCH (08:45)
[2021-12-20] MEDS: HYDROmorphone 0.5 MG/0.5 ML Syringe IVPUSH PRN ×4 (13:51→22:43)
[2021-12-20] MEDS: Ondansetron 8 MG in Sodium Chloride 0.9% 50 ML IV PRN ×2 (13:57→22:58)
[2021-12-20] MEDS: LORazepam 2 MG/ML SDV IVPUSH PRN ×2 (14:03→23:11)
[2021-12-20] MEDS ORDERED: Ondansetron 8 MG in Sodium Chloride 0.9% 50 ML IV PRN (14:27)
[2021-12-20] MEDS ORDERED: cefTRIAXone 1 GM in Sodium Chloride 0.9% 100 ML IV SCH ×2 (14:45→16:28)
[2021-12-20] MEDS ORDERED: Insulin Aspart Protamine/Insulin Aspart 70-30 100 Units/ML 10 ML Vial SUBCUT SCH (14:45)
[2021-12-20] MEDS: Insulin Lispro 100 Unit/ML 3 ML KwikPen SUBCUT SCH (17:58)
[2021-12-21] MEDS: HYDROmorphone 0.5 MG/0.5 ML Syringe IVPUSH PRN ×9 (01:57→23:27)
[2021-12-21] MEDS: Sodium Chloride 0.9% 1,000 ML IV SCH ×2 (05:59→13:01)
[2021-12-21] MEDS: Insulin Lispro 100 Unit/ML 3 ML KwikPen SUBCUT SCH ×2 (06:28→16:41)
[2021-12-21] MEDS: Ondansetron 8 MG in Sodium Chloride 0.9% 50 ML IV PRN ×2 (08:49→14:42)
[2021-12-21] MEDS ORDERED: Enoxaparin 40 MG/0.4 ML Syringe SUBCUT SCH (11:00)
[2021-12-21] MEDS: LORazepam 2 MG/ML SDV IVPUSH PRN ×2 (11:29→23:28)
[2021-12-21] MEDS ORDERED: cefTRIAXone 1 GM in Sodium Chloride 0.9% 100 ML IV SCH (16:30)
[2021-12-21] MEDS: Nicotine 14 MG/24 Hr Patch TRDERM SCH (16:35)
[2021-12-21] MEDS: metroNIDAZOLE/Normal Saline 500 MG in Premix Bag 1 BAG IV SCH ×2 (16:35→23:27)
[2021-12-21] MEDS: Enoxaparin 60 MG/0.6 ML Syringe SUBCUT SCH (16:38)
[2021-12-21] MEDS: hydrOXYzine HCl 25 MG/ML SDV IM PRN (16:47)
[2021-12-21] MEDS: oxyCODONE ER 10 MG TAB.ER PO PRN (16:48)
[2021-12-21] MEDS: Cefepime 2 GM in Sodium Chloride 0.9% 50 ML IV SCH (17:49)
[2021-12-21] MEDS: Ondansetron 4 MG/2 ML SDV IVPUSH PRN (23:27)
[2021-12-22] MEDS: Cefepime 2 GM in Sodium Chloride 0.9% 50 ML IV SCH (00:47)
[2021-12-22] MEDS: Enoxaparin 60 MG/0.6 ML Syringe SUBCUT SCH ×2 (02:44→03:36)
[2021-12-22] MEDS: HYDROmorphone 0.5 MG/0.5 ML Syringe IVPUSH PRN ×6 (02:44→20:13)
[2021-12-22] MEDS: Sodium Chloride 0.9% 1,000 ML IV SCH ×2 (02:45→09:29)
[2021-12-22] MEDS: Insulin Lispro 100 Unit/ML 3 ML KwikPen SUBCUT SCH ×2 (06:36→16:08)
[2021-12-22] MEDS: Ondansetron 4 MG/2 ML SDV IVPUSH PRN ×4 (07:56→20:12)
[2021-12-22] MEDS: oxyCODONE ER 10 MG TAB.ER PO PRN ×2 (07:56→20:13)
[2021-12-22] MEDS: metroNIDAZOLE/Normal Saline 500 MG in Premix Bag 1 BAG IV SCH (07:57)
[2021-12-22] MEDS: Nicotine 14 MG/24 Hr Patch TRDERM SCH (08:01)
[2021-12-22] MEDS: hydrOXYzine HCl 25 MG/ML SDV IM PRN ×2 (09:29→17:57)
[2021-12-22] MEDS: LORazepam 2 MG/ML SDV IVPUSH PRN (12:02)
[2021-12-22] MEDS: Rivaroxaban 10 MG Tab PO SCH (18:00)
[2021-12-23] MEDS: HYDROmorphone 0.5 MG/0.5 ML Syringe IVPUSH PRN ×4 (00:48→18:20)
[2021-12-23] MEDS: Ondansetron 4 MG/2 ML SDV IVPUSH PRN ×4 (00:48→18:19)
[2021-12-23] MEDS: LORazepam 2 MG/ML SDV IVPUSH PRN ×2 (00:48→12:00)
[2021-12-23] MEDS: hydrOXYzine HCl 25 MG/ML SDV IM PRN ×2 (02:52→23:24)
[2021-12-23] MEDS: Insulin Lispro 100 Unit/ML 3 ML KwikPen SUBCUT SCH ×2 (06:55→17:26)
[2021-12-23] MEDS: Nicotine 14 MG/24 Hr Patch TRDERM SCH (08:26)
[2021-12-23] MEDS: oxyCODONE ER 10 MG TAB.ER PO PRN ×2 (08:27→20:29)
[2021-12-23] MEDS: Potassium Chloride 20 MEQ Tab.ER PO SCH ×2 (15:34→20:29)
[2021-12-23] MEDS: Rivaroxaban 10 MG Tab PO SCH (18:21)
[2021-12-23] MEDS: Nicotine Polacrilex 2 MG Gum CHEW PRN (20:31)
[2021-12-24] MEDS: LORazepam 2 MG/ML SDV IVPUSH PRN ×2 (01:26→13:36)
[2021-12-24] MEDS: Ondansetron 4 MG/2 ML SDV IVPUSH PRN ×3 (01:28→18:07)
[2021-12-24] MEDS: HYDROmorphone 0.5 MG/0.5 ML Syringe IVPUSH PRN ×2 (03:03→13:34)
[2021-12-24] MEDS: Insulin Lispro 100 Unit/ML 3 ML KwikPen SUBCUT SCH ×2 (07:34→17:03)
[2021-12-24] MEDS: Potassium Chloride 20 MEQ Tab.ER PO SCH ×3 (08:26→20:38)
[2021-12-24] MEDS: Nicotine 14 MG/24 Hr Patch TRDERM SCH (08:27)
[2021-12-24] MEDS: oxyCODONE ER 10 MG TAB.ER PO PRN ×2 (08:28→20:38)
[2021-12-24] MEDS: hydrOXYzine HCl 25 MG/ML SDV IM PRN ×2 (13:35→22:02)
[2021-12-24] MEDS: Rivaroxaban 10 MG Tab PO SCH (18:07)
[2021-12-24] MEDS: LORazepam 0.5 MG Tab PO PRN (20:40)
[2021-12-25] MEDS ORDERED: HYDROmorphone 0.5 MG/0.5 ML Syringe IVPUSH ONE (01:00)
[2021-12-25] MEDS: Nicotine Polacrilex 2 MG Gum CHEW PRN (06:08)
[2021-12-25] MEDS: Ondansetron 4 MG/2 ML SDV IVPUSH PRN ×2 (06:13→14:11)
[2021-12-25] MEDS: Insulin Lispro 100 Unit/ML 3 ML KwikPen SUBCUT SCH ×2 (06:42→17:22)
[2021-12-25] MEDS: Nicotine 14 MG/24 Hr Patch TRDERM SCH (09:06)
[2021-12-25] MEDS: oxyCODONE ER 10 MG TAB.ER PO PRN (09:08)
[2021-12-25] MEDS: Potassium Chloride 20 MEQ Tab.ER PO SCH ×3 (09:08→20:51)
[2021-12-25] MEDS: hydrOXYzine HCl 25 MG/ML SDV IM PRN (09:37)
[2021-12-25] MEDS: Ketorolac 30 MG/ML SDV IVPUSH PRN ×3 (10:28→22:09)
[2021-12-25] MEDS: Topiramate 25 MG Tab PO SCH ×3 (12:29→22:01)
[2021-12-25] MEDS: ARIPiprazole 5 MG Tab PO SCH (12:29)
[2021-12-25] MEDS: Acetaminophen/HYDROcodone 325-5 MG Tab PO PRN ×2 (15:05→19:38)
[2021-12-25] MEDS: Rivaroxaban 10 MG Tab PO SCH (17:23)
[2021-12-25] MEDS: Ondansetron 4 MG Tab.DIS PO PRN (19:38)
[2021-12-25] MEDS: LORazepam 0.5 MG Tab PO PRN (21:03)
[2021-12-26] MEDS: Acetaminophen/HYDROcodone 325-5 MG Tab PO PRN ×5 (00:32→20:10)
[2021-12-26] MEDS: Ketorolac 30 MG/ML SDV IVPUSH PRN ×3 (04:13→17:54)
[2021-12-26] MEDS: Ondansetron 4 MG Tab.DIS PO PRN ×2 (06:04→16:32)
[2021-12-26] MEDS: Insulin Lispro 100 Unit/ML 3 ML KwikPen SUBCUT SCH ×2 (06:36→17:49)
[2021-12-26] MEDS: Nicotine 14 MG/24 Hr Patch TRDERM SCH (09:52)
[2021-12-26] MEDS: Topiramate 25 MG Tab PO SCH ×3 (09:53→20:12)
[2021-12-26] MEDS: Potassium Chloride 20 MEQ Tab.ER PO SCH (09:53)
[2021-12-26] MEDS: ARIPiprazole 5 MG Tab PO SCH (09:53)
[2021-12-26] MEDS ORDERED: Magnesium Sulfate/Water 4 GM in Premix Bag 1 BAG IV ONE (10:15)
[2021-12-26] MEDS ORDERED: traMADol 50 MG Tab PO PRN (12:04)
[2021-12-26] MEDS: Nicotine Polacrilex 2 MG Gum CHEW PRN (12:11)
[2021-12-26] MEDS: Rivaroxaban 10 MG Tab PO SCH (17:58)
[2021-12-26] MEDS: Magnesium Oxide 400 MG Tab PO SCH (20:12)
[2021-12-26] MEDS: LORazepam 0.5 MG Tab PO PRN (20:16)
[2021-12-26] MEDS ORDERED: Pantoprazole 40 MG Tab.CR PO SCH (21:00)
[2021-12-27] MEDS: Ketorolac 30 MG/ML SDV IVPUSH PRN ×2 (00:17→08:17)
[2021-12-27] MEDS: Acetaminophen/HYDROcodone 325-5 MG Tab PO PRN ×4 (01:22→14:59)
[2021-12-27] MEDS: Insulin Lispro 100 Unit/ML 3 ML KwikPen SUBCUT SCH (07:23)
[2021-12-27] MEDS: Topiramate 25 MG Tab PO SCH ×2 (08:15→14:59)
[2021-12-27] MEDS: Ondansetron 4 MG Tab.DIS PO PRN (08:15)
[2021-12-27] MEDS: Magnesium Oxide 400 MG Tab PO SCH (08:15)
[2021-12-27] MEDS: Nicotine 14 MG/24 Hr Patch TRDERM SCH (08:15)
[2021-12-27] MEDS: ARIPiprazole 5 MG Tab PO SCH (08:15)
[2021-12-27] MEDS ORDERED: Magnesium Sulfate/Water 4 GM in Premix Bag 1 BAG IV ONE (09:17)
[2021-12-27] MEDS ORDERED: Ibuprofen 600 MG Tab PO PRN (14:00)
[2021-12-27 14:50] VITALS: BP 118/84; PULSE 92
== END 2021-12-27 15:45 | disposition home or self-care (01) | DRG 438 ==
LOC: JD.ED 01:05 → JD.MS 10:38 → JD.OB 12-23 19:00 → JD.MS 12-26 15:46
PROVIDERS: ADMIT Pediatrics; ATTEND Pediatrics
DX: K85.90 Acute pancreatitis without necrosis or infection, unspecified (principal); I81 Portal vein thrombosis; F11.20 Opioid dependence, uncomplicated; K86.2 Cyst of pancreas; D73.5 Infarction of spleen; K86.1 Other chronic pancreatitis; Z20.822 Contact with and (suspected) exposure to COVID-19; E83.42 Hypomagnesemia; E86.0 Dehydration; K21.9 Gastro-esophageal reflux disease without esophagitis; K76.0 Fatty (change of) liver, not elsewhere classified; F41.0 Panic disorder [episodic paroxysmal anxiety]; F17.200 Nicotine dependence, unspecified, uncomplicated; E11.9 Type 2 diabetes mellitus without complications; E87.6 Hypokalemia; Z90.49 Acquired absence of other specified parts of digestive tract; Z79.4 Long term (current) use of insulin; Z79.899 Other long term (current) drug therapy
CPT/HCPCS: 36415; 74177; 74177-26; 80048; 80053; 80307; 81001; 81025; 82947; 83690; 83735; 85007; 85025; 85027; 86140; 96361; 96365; 96366; 96367; 96375; 96376; 99232; 99233; 99238; 99284; 99285-25; A9270-GY; J0692; J0696; J1170; J1650; J1815; J1885; J2060; J2405; J3410; J3475; J3480; J3490; J7030; J7120; U0002

== ENCOUNTER 2022-01-03 14:07 | Inpatient (IN) | payer OTHER ==
[2022-01-03] MEDS ORDERED: HYDROmorphone 1 MG/ML Syringe IVPUSH STA (14:57)
[2022-01-03] MEDS ORDERED: Ondansetron 4 MG/2 ML SDV IVPUSH ONE ×2 (14:57→20:08)
[2022-01-03] MEDS ORDERED: Sodium Chloride 0.9% 1,000 ML IV SCH (15:00)
[2022-01-03] MEDS: Sodium Chloride 0.9% 10 ML Syringe FLUSH PRN ×2 (15:45→17:12)
[2022-01-03] MEDS ORDERED: Potassium Chloride 20 MEQ Tab.ER PO ONE (16:13)
[2022-01-03] MEDS ORDERED: Sodium Chloride 0.9% 1,000 ML IV ONE (16:14)
[2022-01-03] MEDS ORDERED: Iopamidol 612 MG/ML 100 ML Bottle IVPUSH ONE (16:36)
[2022-01-03] MEDS ORDERED: Iopamidol 612 MG/ML 50 ML SDV IVPUSH ONE (16:36)
[2022-01-03] MEDS ORDERED: Magnesium Sulfate/Water 2 GM in Premix Bag 1 BAG IV ONE (16:41)
[2022-01-03] MEDS ORDERED: cefTRIAXone 2 GM in Sodium Chloride 0.9% 100 ML IV ONE (17:11)
[2022-01-03] MEDS ORDERED: HYDROmorphone 0.5 MG/0.5 ML Syringe IVPUSH ONE (18:08)
[2022-01-03] MEDS ORDERED: Metoclopramide 10 MG/2 ML SDV IVPUSH ONE (18:18)
[2022-01-03] MEDS ORDERED: Pantoprazole 40 MG Vial ONE ×2 (19:09→20:08)
[2022-01-03] MEDS ORDERED: Morphine 2 MG/ML SYRINGE IVPUSH PRN (19:09)
[2022-01-03] MEDS ORDERED: Ondansetron 4 MG Tab.DIS PO PRN (20:06)
[2022-01-03] MEDS ORDERED: Sodium Chloride 0.9% 1,000 ML IV STA (20:11)
[2022-01-03] MEDS: Morphine 2 MG/ML SYRINGE IVPUSH PRN ×2 (20:31→22:13)
[2022-01-03] MEDS ORDERED: Pantoprazole 40 MG Vial IVPUSH ONE (21:44)
[2022-01-03] MEDS: Insulin Glargine,Human Rec. Analog 100 Units/ML 3 ML Pen SUBCUT SCH (22:15)
[2022-01-03] MEDS: Nicotine 14 MG/24 Hr Patch TRDERM SCH (22:15)
[2022-01-03] MEDS ORDERED: Rivaroxaban 10 MG Tab PO SCH (22:15)
[2022-01-03] MEDS: LORazepam 1 MG Tab PO PRN (22:17)
[2022-01-04] MEDS: Morphine 2 MG/ML SYRINGE IVPUSH PRN ×9 (01:37→22:47)
[2022-01-04] MEDS: Dextrose 5%-0.45% NaCl 1,000 ML IV SCH (06:57)
[2022-01-04] MEDS: LORazepam 1 MG Tab PO PRN (07:49)
[2022-01-04] MEDS: Nicotine 14 MG/24 Hr Patch TRDERM SCH ×2 (07:50→10:11)
[2022-01-04] MEDS: metroNIDAZOLE/Normal Saline 500 MG in Premix Bag 1 BAG IV SCH ×2 (10:42→20:53)
[2022-01-04] MEDS: Insulin Glargine,Human Rec. Analog 100 Units/ML 3 ML Pen SUBCUT SCH (11:12)
[2022-01-04] MEDS: Cefepime 2 GM in Sodium Chloride 0.9% 50 ML IV SCH ×2 (11:59→20:15)
[2022-01-04] MEDS ORDERED: WATER IV ONE ×6 (16:00→21:00)
[2022-01-04] MEDS ORDERED: Rivaroxaban 10 MG Tab PO SCH (16:00)
[2022-01-04] MEDS ORDERED: DEXTROSE 5% IV ONE ×6 (16:00→21:00)
[2022-01-04] MEDS ORDERED: ACETYLCYSTEINE IV ONE ×6 (16:00→21:00)
[2022-01-04] MEDS ORDERED: LORazepam 2 MG/ML SDV IVPUSH ONE (17:40)
[2022-01-04] MEDS ORDERED: Phytonadione 10 MG in Sodium Chloride 0.9% 50 ML IV ONE (17:40)
[2022-01-04] MEDS: Ondansetron 4 MG/2 ML SDV IVPUSH PRN (20:35)
[2022-01-05] MEDS: Morphine 2 MG/ML SYRINGE IVPUSH PRN ×4 (01:43→20:58)
[2022-01-05] MEDS: LORazepam 1 MG Tab PO PRN (01:43)
[2022-01-05] MEDS: metroNIDAZOLE/Normal Saline 500 MG in Premix Bag 1 BAG IV SCH ×4 (02:00→18:23)
[2022-01-05] MEDS: Ondansetron 4 MG/2 ML SDV IVPUSH PRN ×3 (02:33→17:52)
[2022-01-05] MEDS: Cefepime 2 GM in Sodium Chloride 0.9% 50 ML IV SCH ×3 (03:58→18:43)
[2022-01-05] MEDS: hydrOXYzine HCl 25 MG Tab PO PRN ×2 (06:34→15:08)
[2022-01-05] MEDS: Insulin Glargine,Human Rec. Analog 100 Units/ML 3 ML Pen SUBCUT SCH (10:17)
[2022-01-05] MEDS: Nicotine 14 MG/24 Hr Patch TRDERM SCH (10:17)
[2022-01-05] MEDS: Pantoprazole 40 MG Tab.CR PO SCH (10:18)
[2022-01-05] MEDS: Lactulose Soln 10 GM/15 ML 30 ML UD Cup PO SCH ×2 (16:32→20:53)
[2022-01-05] MEDS: Potassium Chloride 10 MEQ in Premix Bag 1 BAG IV SCH ×6 (16:32→23:32)
[2022-01-06] MEDS: Potassium Chloride 10 MEQ in Premix Bag 1 BAG IV SCH ×8 (00:31→17:22)
[2022-01-06] MEDS: Dextrose 5%-0.45% NaCl 1,000 ML IV SCH (01:20)
[2022-01-06] MEDS: Ondansetron 4 MG/2 ML SDV IVPUSH PRN ×4 (02:21→23:38)
[2022-01-06] MEDS: Morphine 2 MG/ML SYRINGE IVPUSH PRN ×2 (02:25→14:16)
[2022-01-06] MEDS: metroNIDAZOLE/Normal Saline 500 MG in Premix Bag 1 BAG IV SCH (02:28)
[2022-01-06] MEDS: Cefepime 2 GM in Sodium Chloride 0.9% 50 ML IV SCH (03:24)
[2022-01-06] MEDS: Sodium Chloride 0.9% 1,000 ML IV SCH ×2 (08:09→22:16)
[2022-01-06] MEDS: Lactulose Soln 10 GM/15 ML 30 ML UD Cup PO SCH ×3 (08:11→20:23)
[2022-01-06] MEDS: Rifaximin 550 MG Tab PO SCH ×2 (08:11→20:23)
[2022-01-06] MEDS: Pantoprazole 40 MG Tab.CR PO SCH (08:11)
[2022-01-06] MEDS: Insulin Glargine,Human Rec. Analog 100 Units/ML 3 ML Pen SUBCUT SCH (08:12)
[2022-01-06] MEDS: Nicotine 14 MG/24 Hr Patch TRDERM SCH (08:13)
[2022-01-06] MEDS: hydrOXYzine HCl 25 MG Tab PO PRN (11:28)
[2022-01-07] MEDS: Morphine 2 MG/ML SYRINGE IVPUSH PRN ×4 (00:20→22:00)
[2022-01-07] MEDS ORDERED: Phytonadione 10 MG in Sodium Chloride 0.9% 50 ML IV ONE (08:00)
[2022-01-07] MEDS: Rifaximin 550 MG Tab PO SCH ×2 (08:13→20:25)
[2022-01-07] MEDS: Pantoprazole 40 MG Tab.CR PO SCH (08:13)
[2022-01-07] MEDS: Nicotine 14 MG/24 Hr Patch TRDERM SCH (08:13)
[2022-01-07] MEDS: Insulin Glargine,Human Rec. Analog 100 Units/ML 3 ML Pen SUBCUT SCH (08:14)
[2022-01-07] MEDS: Lactulose Soln 10 GM/15 ML 30 ML UD Cup PO SCH ×3 (08:14→20:25)
[2022-01-07] MEDS ORDERED: Magnesium Sulfate/Water 2 GM in Premix Bag 1 BAG IV ONE (08:17)
[2022-01-07] MEDS: Ondansetron 4 MG/2 ML SDV IVPUSH PRN ×2 (08:29→20:26)
[2022-01-07] MEDS: Potassium Chloride 20 MEQ Tab.ER PO SCH (08:46)
[2022-01-07] MEDS: Potassium Chloride 10 MEQ in Premix Bag 1 BAG IV SCH ×8 (09:06→17:45)
[2022-01-07] MEDS ORDERED: Sodium Chloride 0.9% 500 ML IV SCH (10:30)
[2022-01-07] MEDS: hydrOXYzine HCl 25 MG Tab PO PRN (15:29)
[2022-01-07] MEDS: Insulin Lispro 100 Unit/ML 3 ML KwikPen SUBCUT SCH ×2 (17:47→20:27)
[2022-01-08] MEDS: hydrOXYzine HCl 25 MG Tab PO PRN (01:14)
[2022-01-08] MEDS: Morphine 2 MG/ML SYRINGE IVPUSH PRN ×2 (05:58→15:25)
[2022-01-08] MEDS ORDERED: Magnesium Sulfate/Water 4 GM in Premix Bag 1 BAG IV ONE (06:32)
[2022-01-08] MEDS: Ondansetron 4 MG/2 ML SDV IVPUSH PRN ×2 (06:34→20:10)
[2022-01-08] MEDS ORDERED: Phytonadione 5 MG in Sodium Chloride 0.9% 50 ML IV ONE (08:00)
[2022-01-08] MEDS: Potassium Chloride 20 MEQ Tab.ER PO SCH (08:49)
[2022-01-08] MEDS: Pantoprazole 40 MG Tab.CR PO SCH (08:50)
[2022-01-08] MEDS: Lactulose Soln 10 GM/15 ML 30 ML UD Cup PO SCH ×3 (08:50→20:13)
[2022-01-08] MEDS: Nicotine 14 MG/24 Hr Patch TRDERM SCH (08:51)
[2022-01-08] MEDS: Insulin Glargine,Human Rec. Analog 100 Units/ML 3 ML Pen SUBCUT SCH (08:52)
[2022-01-08] MEDS: Insulin Lispro 100 Unit/ML 3 ML KwikPen SUBCUT SCH ×4 (08:53→22:48)
[2022-01-08] MEDS: Potassium Chloride 10 MEQ in Premix Bag 1 BAG IV SCH ×6 (11:16→17:38)
[2022-01-08] MEDS: oxyCODONE 5 MG Tab PO PRN ×2 (11:19→20:12)
[2022-01-08] MEDS: LORazepam 0.5 MG Tab PO PRN (21:48)
[2022-01-09] MEDS: Morphine 2 MG/ML SYRINGE IVPUSH PRN (01:09)
[2022-01-09] MEDS: Ondansetron 4 MG/2 ML SDV IVPUSH PRN ×3 (03:20→20:16)
[2022-01-09] MEDS: oxyCODONE 5 MG Tab PO PRN ×4 (04:45→22:16)
[2022-01-09] MEDS: Insulin Lispro 100 Unit/ML 3 ML KwikPen SUBCUT SCH ×4 (08:00→22:17)
[2022-01-09] MEDS: hydrOXYzine HCl 25 MG Tab PO PRN (08:39)
[2022-01-09] MEDS: Lactulose Soln 10 GM/15 ML 30 ML UD Cup PO SCH (08:39)
[2022-01-09] MEDS: Pantoprazole 40 MG Tab.CR PO SCH (08:39)
[2022-01-09] MEDS: Nicotine 14 MG/24 Hr Patch TRDERM SCH (08:41)
[2022-01-09] MEDS: Potassium Chloride 20 MEQ Tab.ER PO SCH (08:41)
[2022-01-09] MEDS: Insulin Glargine,Human Rec. Analog 100 Units/ML 3 ML Pen SUBCUT SCH (08:42)
[2022-01-09] MEDS: LORazepam 0.5 MG Tab PO PRN (22:17)
[2022-01-10] MEDS: oxyCODONE 5 MG Tab PO PRN ×4 (04:32→22:36)
[2022-01-10] MEDS ORDERED: Magnesium Sulfate/Water 4 GM in Premix Bag 1 BAG IV ONE (07:10)
[2022-01-10] MEDS: Potassium Chloride 10 MEQ in Premix Bag 1 BAG IV SCH ×6 (07:54→13:58)
[2022-01-10] MEDS: Pantoprazole 40 MG Tab.CR PO SCH (08:14)
[2022-01-10] MEDS: Potassium Chloride 20 MEQ Tab.ER PO SCH (08:15)
[2022-01-10] MEDS ORDERED: Sodium Chloride 0.9% 1,000 ML IV SCH (08:15)
[2022-01-10] MEDS: Insulin Lispro 100 Unit/ML 3 ML KwikPen SUBCUT SCH ×4 (08:16→21:39)
[2022-01-10] MEDS: Insulin Glargine,Human Rec. Analog 100 Units/ML 3 ML Pen SUBCUT SCH (08:16)
[2022-01-10] MEDS: Lactulose Soln 10 GM/15 ML 30 ML UD Cup PO SCH (08:17)
[2022-01-10] MEDS: Nicotine 14 MG/24 Hr Patch TRDERM SCH (08:18)
[2022-01-10] MEDS: Ondansetron 4 MG/2 ML SDV IVPUSH PRN ×2 (11:48→18:00)
[2022-01-11] MEDS: Ondansetron 4 MG/2 ML SDV IVPUSH PRN ×2 (00:08→06:20)
[2022-01-11] MEDS: oxyCODONE 5 MG Tab PO PRN ×2 (04:27→09:35)
[2022-01-11] MEDS: hydrOXYzine HCl 25 MG Tab PO PRN (04:27)
[2022-01-11] MEDS ORDERED: Magnesium Sulfate/Water 2 GM in Premix Bag 1 BAG IV ONE (06:40)
[2022-01-11] MEDS: Insulin Lispro 100 Unit/ML 3 ML KwikPen SUBCUT SCH ×2 (07:41→11:34)
[2022-01-11] MEDS: Insulin Glargine,Human Rec. Analog 100 Units/ML 3 ML Pen SUBCUT SCH (09:07)
[2022-01-11] MEDS: Potassium Chloride 20 MEQ Tab.ER PO SCH (09:09)
[2022-01-11] MEDS: Lactulose Soln 10 GM/15 ML 30 ML UD Cup PO SCH (09:09)
[2022-01-11] MEDS: Pantoprazole 40 MG Tab.CR PO SCH (09:09)
[2022-01-11] MEDS: Nicotine 14 MG/24 Hr Patch TRDERM SCH (09:10)
[2022-01-11] MEDS ORDERED: oxyCODONE 5 MG Tab PO PRN (10:31)
[2022-01-11 11:26] VITALS: BP 97/66; PULSE 88
[2022-01-11] MEDS ORDERED: oxyCODONE ER 10 MG TAB.ER PO SCH (21:00)
== END 2022-01-11 14:40 | disposition home or self-care (01) | DRG 438 ==
LOC: JD.ED 14:07 → JD.MS 18:17
PROVIDERS: ADMIT Pediatrics; ATTEND Internal Medicine
DX: K85.90 Acute pancreatitis without necrosis or infection, unspecified (principal); K72.00 Acute and subacute hepatic failure without coma; K86.2 Cyst of pancreas; E87.1 Hypo-osmolality and hyponatremia; N17.9 Acute kidney failure, unspecified; E87.2 Acidosis; E86.0 Dehydration; F17.200 Nicotine dependence, unspecified, uncomplicated; F10.10 Alcohol abuse, uncomplicated; E11.9 Type 2 diabetes mellitus without complications; E83.42 Hypomagnesemia; F41.9 Anxiety disorder, unspecified; G40.909 Epilepsy, unspecified, not intractable, without status epilepticus; F12.90 Cannabis use, unspecified, uncomplicated; D64.9 Anemia, unspecified; K21.9 Gastro-esophageal reflux disease without esophagitis; N18.9 Chronic kidney disease, unspecified; E87.6 Hypokalemia; Z79.4 Long term (current) use of insulin; Z79.899 Other long term (current) drug therapy; Z87.19 Personal history of other diseases of the digestive system; Z85.828 Personal history of other malignant neoplasm of skin; Z79.01 Long term (current) use of anticoagulants; Z98.890 Other specified postprocedural states; Z90.49 Acquired absence of other specified parts of digestive tract
CPT/HCPCS: 36415; 74177; 74177-26; 76700; 76700-26; 80053; 80074; 80143; 81001; 81025; 82140; 82947; 83690; 83735; 84132; 85025; 85027; 85384; 85610; 86140; 87086; 87529; 96361; 96365; 96366; 96368; 96375; 96376; 97166-GO; 99284; 99285-25; A9270-GY; C9113; J0132; J0692; J0696; J1170; J1815; J1815-GY; J2060; J2270; J2405; J2765; J3430; J3475; J3480; J3490; J7030; J7042; J7060; Q9967

== ENCOUNTER 2022-01-22 18:40 | Emergency (ER) | payer OTHER ==
[2022-01-22 19:07] VITALS: BP 133/97; PULSE 104
[2022-01-22] MEDS ORDERED: Ondansetron 4 MG/2 ML SDV IVPUSH ONE (19:54)
[2022-01-22] MEDS ORDERED: HYDROmorphone 1 MG/ML Syringe IVPUSH STA (19:54)
[2022-01-22] MEDS ORDERED: LORazepam 2 MG/ML SDV IVPUSH STA (19:57)
[2022-01-22] MEDS ORDERED: Sodium Chloride 0.9% 1,000 ML IV SCH (20:00)
[2022-01-22] MEDS: Potassium Chloride 10 MEQ in Premix Bag 1 BAG IV SCH ×3 (21:36→23:41)
[2022-01-22] MEDS ORDERED: HYDROmorphone 1 MG/ML Syringe IVPUSH ONE (22:56)
[2022-01-23] MEDS ORDERED: HYDROmorphone 1 MG/ML Syringe IVPUSH ONE (00:03)
[2022-01-23] MEDS: Potassium Chloride 10 MEQ in Premix Bag 1 BAG IV SCH (00:08)
== END 2022-01-23 00:13 ==
LOC: JD.ED 18:40
DX: K86.1 Other chronic pancreatitis (principal); E80.7 Disorder of bilirubin metabolism, unspecified; E87.6 Hypokalemia; K21.9 Gastro-esophageal reflux disease without esophagitis; E11.9 Type 2 diabetes mellitus without complications; F17.210 Nicotine dependence, cigarettes, uncomplicated; Z79.4 Long term (current) use of insulin; Z79.899 Other long term (current) drug therapy; Z90.49 Acquired absence of other specified parts of digestive tract; Z20.822 Contact with and (suspected) exposure to COVID-19
CPT/HCPCS: 36415; 74177; 80053; 80306; 80307; 81001; 81025; 82248; 83690; 83735; 85007; 85027; 87635; 96361; 96365; 96366; 96375; 96376; 99285; J1170; J2060; J2405; J3480; J7030; U0002

== ENCOUNTER 2022-01-29 00:05 | Inpatient (IN) | payer OTHER ==
[2022-01-29 02:20] LABS: ESTIMATED GFR 114 mL/min (>60)
[2022-01-29] MEDS ORDERED: Ondansetron 4 MG/2 ML SDV IVPUSH ONE (04:13)
[2022-01-29] MEDS ORDERED: HYDROmorphone 0.5 MG/0.5 ML Syringe IVPUSH ONE (04:13)
[2022-01-29] MEDS ORDERED: Lactated Ringers 1,000 ML IV SCH (04:15)
[2022-01-29] MEDS ORDERED: Iopamidol 612 MG/ML 100 ML Bottle IVPUSH ONE ×2 (05:03→05:04)
[2022-01-29] MEDS ORDERED: Sodium Chloride 0.9% 10 ML Syringe FLUSH ONE ×2 (05:03→05:04)
[2022-01-29] MEDS ORDERED: Lactated Ringers 1,000 ML IV ONE (07:43)
[2022-01-29] MEDS ORDERED: Nicotine Polacrilex 2 MG Gum CHEW PRN (11:41)
[2022-01-29] MEDS ORDERED: Docusate Sodium 100 MG Cap PO PRN (12:00)
[2022-01-29] MEDS: Morphine 2 MG/ML SYRINGE IVPUSH PRN ×5 (14:09→23:11)
[2022-01-29] MEDS: Ondansetron 4 MG/2 ML SDV IV PRN (14:12)
[2022-01-29] MEDS: Sodium Chloride 0.9% 1,000 ML IV SCH ×2 (16:35→21:00)
[2022-01-29] MEDS: LORazepam 0.5 MG Tab PO PRN (17:19)
[2022-01-29] MEDS: Rivaroxaban 15 MG Tab PO SCH (17:19)
[2022-01-29] MEDS: Insulin Lispro 100 Unit/ML 3 ML KwikPen SUBCUT SCH ×2 (17:25→21:11)
[2022-01-29] MEDS: Magnesium Oxide 400 MG Tab PO SCH (20:42)
[2022-01-29] MEDS: Pantoprazole 40 MG Vial IV SCH (20:49)
[2022-01-30] MEDS: Morphine 2 MG/ML SYRINGE IVPUSH PRN ×5 (01:49→20:50)
[2022-01-30] MEDS: Sodium Chloride 0.9% 1,000 ML IV SCH (02:08)
[2022-01-30] MEDS: LORazepam 0.5 MG Tab PO PRN ×2 (05:40→20:01)
[2022-01-30] MEDS ORDERED: Furosemide 40 MG/4 ML VIAL IVPUSH ONE (06:52)
[2022-01-30] MEDS ORDERED: Potassium Chloride 20 MEQ Tab.ER PO ONE (06:53)
[2022-01-30] MEDS: Insulin Lispro 100 Unit/ML 3 ML KwikPen SUBCUT SCH ×3 (07:29→17:47)
[2022-01-30] MEDS ORDERED: Albumin 25% 12.5 GM/50 ML BAG IV ONE (08:25)
[2022-01-30] MEDS ORDERED: Insulin Glargine,Human Rec. Analog 100 Units/ML 3 ML Pen SUBCUT SCH (09:00)
[2022-01-30] MEDS: Ondansetron 4 MG/2 ML SDV IV PRN ×2 (09:27→16:40)
[2022-01-30] MEDS: Pantoprazole 40 MG Vial IV SCH ×2 (09:29→20:03)
[2022-01-30] MEDS: Albumin 25% 12.5 GM/50 ML BAG IV SCH ×4 (09:34→11:12)
[2022-01-30] MEDS: Potassium Chloride 20 MEQ Tab.ER PO SCH (09:41)
[2022-01-30] MEDS: Spironolactone 25 MG Tab PO SCH (09:41)
[2022-01-30] MEDS: Furosemide 40 MG Tab PO SCH (09:41)
[2022-01-30] MEDS: Magnesium Oxide 400 MG Tab PO SCH ×2 (09:41→20:07)
[2022-01-30] MEDS: Lactulose Soln 10 GM/15 ML 30 ML UD Cup PO SCH (09:41)
[2022-01-30] MEDS: Nicotine 14 MG/24 Hr Patch TRDERM SCH (09:43)
[2022-01-30] MEDS: Rivaroxaban 15 MG Tab PO SCH (17:30)
[2022-01-30] MEDS: traMADol 50 MG Tab PO PRN ×2 (17:30→23:16)
[2022-01-31] MEDS: Insulin Lispro 100 Unit/ML 3 ML KwikPen SUBCUT SCH ×5 (00:12→21:41)
[2022-01-31] MEDS: Morphine 2 MG/ML SYRINGE IVPUSH PRN (02:12)
[2022-01-31] MEDS: traMADol 50 MG Tab PO PRN ×3 (05:35→18:54)
[2022-01-31] MEDS: Ondansetron 4 MG Tab.DIS PO PRN ×3 (05:36→21:54)
[2022-01-31] MEDS ORDERED: Potassium Chloride 20 MEQ Tab.ER PO ONE ×3 (06:53→12:00)
[2022-01-31] MEDS: Lactulose Soln 10 GM/15 ML 30 ML UD Cup PO SCH (08:14)
[2022-01-31] MEDS: Nicotine 14 MG/24 Hr Patch TRDERM SCH (09:32)
[2022-01-31] MEDS: Insulin Glargine,Human Rec. Analog 100 Units/ML 3 ML Pen SUBCUT SCH (09:33)
[2022-01-31] MEDS: Pantoprazole 40 MG Vial IV SCH ×2 (09:34→20:50)
[2022-01-31] MEDS: Potassium Chloride 20 MEQ Tab.ER PO SCH (09:34)
[2022-01-31] MEDS: Magnesium Oxide 400 MG Tab PO SCH ×2 (09:35→20:50)
[2022-01-31] MEDS: Furosemide 40 MG Tab PO SCH (09:35)
[2022-01-31] MEDS: Spironolactone 25 MG Tab PO SCH (09:35)
[2022-01-31] MEDS: LORazepam 0.5 MG Tab PO PRN ×2 (09:57→22:00)
[2022-01-31] MEDS: Rivaroxaban 15 MG Tab PO SCH (16:47)
[2022-02-01] MEDS: traMADol 50 MG Tab PO PRN ×3 (01:05→15:26)
[2022-02-01] MEDS: Ondansetron 4 MG Tab.DIS PO PRN ×2 (07:12→17:20)
[2022-02-01] MEDS: Insulin Lispro 100 Unit/ML 3 ML KwikPen SUBCUT SCH ×2 (07:13→12:03)
[2022-02-01] MEDS: Pantoprazole 40 MG Tab.CR PO SCH ×2 (07:18→15:26)
[2022-02-01] MEDS: Nicotine 14 MG/24 Hr Patch TRDERM SCH (08:42)
[2022-02-01] MEDS: Potassium Chloride 20 MEQ Tab.ER PO SCH (08:42)
[2022-02-01] MEDS: Furosemide 40 MG Tab PO SCH (08:42)
[2022-02-01] MEDS: Magnesium Oxide 400 MG Tab PO SCH (08:42)
[2022-02-01] MEDS: Spironolactone 25 MG Tab PO SCH (08:42)
[2022-02-01] MEDS: Lactulose Soln 10 GM/15 ML 30 ML UD Cup PO SCH (08:43)
[2022-02-01] MEDS: Insulin Glargine,Human Rec. Analog 100 Units/ML 3 ML Pen SUBCUT SCH (09:33)
[2022-02-01] MEDS: LORazepam 0.5 MG Tab PO PRN (10:09)
[2022-02-01 11:29] VITALS: PULSE 84
[2022-02-01] MEDS: Rivaroxaban 15 MG Tab PO SCH (15:26)
[2022-02-01 15:36] VITALS: BP 101/68
== END 2022-02-01 17:30 | disposition home or self-care (01) | DRG 439 ==
LOC: JD.ED 00:05 → JD.OB 10:29 → JD.ED 11:40 → JD.MS 01-31 08:20
PROVIDERS: ADMIT Hospitalist; ATTEND Hospitalist
PROC: 0W9G3ZZ Drainage of Peritoneal Cavity, Percutaneous Approach (ICD-10-PCS; principal; 2022-01-29)
DX: K85.90 Acute pancreatitis without necrosis or infection, unspecified (principal); F10.288 Alcohol dependence with other alcohol-induced disorder; R18.8 Other ascites; K70.10 Alcoholic hepatitis without ascites; E87.6 Hypokalemia; D69.6 Thrombocytopenia, unspecified; H54.7 Unspecified visual loss; K21.9 Gastro-esophageal reflux disease without esophagitis; F41.0 Panic disorder [episodic paroxysmal anxiety]; F17.200 Nicotine dependence, unspecified, uncomplicated; E11.9 Type 2 diabetes mellitus without complications; R79.1 Abnormal coagulation profile; Z79.4 Long term (current) use of insulin; Z90.49 Acquired absence of other specified parts of digestive tract; Z79.899 Other long term (current) drug therapy
CPT/HCPCS: 36415; 51798; 74177; 74177-26; 80048; 80053; 80307; 81001; 82248; 82945; 82947; 82977; 83690; 84157; 85025; 85610; 87070; 87075; 87086; 87205; 89050; 96361; 96374; 99285-25; A9270-GY; C9113; J1170; J1815-GY; J1940; J2270; J2405; J3490; J7030; J7120; P9047; Q9967

== ENCOUNTER 2022-02-11 10:18 | Emergency (ER) | payer OTHER ==
[2022-02-11 10:30] VITALS: BP 140/100; PULSE 131
[2022-02-11] MEDS ORDERED: Ondansetron 4 MG/2 ML SDV IVPUSH ONE (10:51)
[2022-02-11] MEDS ORDERED: Sodium Chloride 0.9% 1,000 ML IV STA (10:51)
[2022-02-11] MEDS ORDERED: Sodium Chloride 0.9% 10 ML Syringe FLUSH PRN (10:51)
[2022-02-11] MEDS ORDERED: HYDROmorphone 1 MG/ML Syringe IVPUSH ONE ×2 (10:53→14:19)
[2022-02-11] MEDS ORDERED: Sodium Chloride 0.9% 1,000 ML IV ONE (14:36)
[2022-02-11] MEDS: Potassium Chloride 10 MEQ in Premix Bag 1 BAG IV SCH ×2 (14:51→15:55)
[2022-02-11] MEDS ORDERED: HYDROmorphone 1 MG/ML Syringe IM ONE (16:56)
== END 2022-02-11 17:32 | disposition home or self-care (01) ==
LOC: JD.ED 10:18
DX: K70.9 Alcoholic liver disease, unspecified (principal); E87.6 Hypokalemia; K21.9 Gastro-esophageal reflux disease without esophagitis; E11.9 Type 2 diabetes mellitus without complications; F17.210 Nicotine dependence, cigarettes, uncomplicated; Z79.4 Long term (current) use of insulin; Z79.899 Other long term (current) drug therapy
CPT/HCPCS: 36415; 80053; 81001; 83690; 83735; 84703; 85025; 96361; 96365; 96372; 96375; 96376; 99284; J1170; J2405; J3480; J3490; J7030; 99283

== ENCOUNTER 2022-02-16 00:27 | Emergency (ER) | payer OTHER ==
[2022-02-16] MEDS ORDERED: Ondansetron 4 MG/2 ML SDV IVPUSH ONE (02:50)
[2022-02-16] MEDS ORDERED: HYDROmorphone 1 MG/ML Syringe IVPUSH STA (02:50)
[2022-02-16] MEDS ORDERED: Sodium Chloride 0.9% 1,000 ML IV ONE (02:55)
[2022-02-16] MEDS ORDERED: Sodium Chloride 0.9% 1,000 ML IV SCH ×2 (03:00→05:15)
[2022-02-16] MEDS ORDERED: Iopamidol 612 MG/ML 100 ML Bottle IVPUSH ONE (03:10)
[2022-02-16] MEDS: Sodium Chloride 0.9% 10 ML Syringe FLUSH ONE ×2 (03:21→03:37)
[2022-02-16] MEDS ORDERED: Sodium Chloride 0.9% 10 ML Syringe FLUSH ONE (03:37)
[2022-02-16] MEDS ORDERED: HYDROmorphone 1 MG/ML Syringe IVPUSH ONE ×2 (04:04→05:04)
[2022-02-16] MEDS ORDERED: Potassium Chloride 10 MEQ in Premix Bag 1 BAG IV SCH (04:30)
[2022-02-16] MEDS ORDERED: Potassium Chloride 100 ML ONE (05:20)
[2022-02-16 05:41] VITALS: BP 108/89; PULSE 165
== END 2022-02-16 05:45 ==
LOC: JD.ED 00:27
DX: D73.5 Infarction of spleen (principal); E11.65 Type 2 diabetes mellitus with hyperglycemia; R74.01 Elevation of levels of liver transaminase levels; K21.9 Gastro-esophageal reflux disease without esophagitis; F17.210 Nicotine dependence, cigarettes, uncomplicated; Z79.4 Long term (current) use of insulin; Z79.01 Long term (current) use of anticoagulants; Z79.899 Other long term (current) drug therapy
CPT/HCPCS: 36415; 74177; 80053; 81001; 81025; 82248; 83690; 83735; 85007; 85027; 96361; 96365; 96375; 96376; 99285; J1170; J2405; J3480; J3490; J7030; Q9967

== ENCOUNTER 2022-03-13 09:28 | Emergency (ER) | payer OTHER ==
[2022-03-13] MEDS ORDERED: Ondansetron 4 MG/2 ML SDV IVPUSH ONE (09:50)
[2022-03-13] MEDS ORDERED: HYDROmorphone 1 MG/ML Syringe IVPUSH ONE (09:58)
[2022-03-13] MEDS ORDERED: Sodium Chloride 0.9% 1,000 ML IV SCH ×2 (10:00→11:15)
[2022-03-13] MEDS: Sodium Chloride 0.9% 10 ML Syringe FLUSH PRN ×2 (10:13→10:44)
[2022-03-13] MEDS ORDERED: Iopamidol 612 MG/ML 100 ML Bottle IVPUSH ONE (10:30)
[2022-03-13 10:32] LABS: ESTIMATED GFR 114 mL/min (>60)
[2022-03-13] MEDS ORDERED: Potassium Chloride 10 MEQ in Premix Bag 1 BAG IV ONE (10:59)
[2022-03-13] MEDS ORDERED: HYDROmorphone 0.5 MG/0.5 ML Syringe IVPUSH ONE (12:44)
[2022-03-13 16:25] VITALS: PULSE 86
[2022-03-13 16:52] VITALS: BP 129/95
== END 2022-03-13 16:42 ==
LOC: JD.ED 09:28
DX: K85.90 Acute pancreatitis without necrosis or infection, unspecified (principal); S36.029D Unspecified contusion of spleen, subsequent encounter; E11.9 Type 2 diabetes mellitus without complications; K21.9 Gastro-esophageal reflux disease without esophagitis; F41.9 Anxiety disorder, unspecified; Z87.891 Personal history of nicotine dependence; Z79.899 Other long term (current) drug therapy; Z79.4 Long term (current) use of insulin
CPT/HCPCS: 36415; 74177; 80053; 80307; 82150; 83690; 83735; 85025; 96361; 96365; 96375; 96376; 99285; J1170; J2405; J3480; J3490; J7030; Q9967; 99284

== ENCOUNTER 2022-04-19 11:52 | Emergency (ER) | payer OTHER ==
[2022-04-19 12:32] VITALS: BP 122/98; PULSE 104
[2022-04-19] MEDS ORDERED: HYDROmorphone 1 MG/ML Syringe IVPUSH ONE ×2 (12:50→18:44)
[2022-04-19] MEDS ORDERED: Sodium Chloride 0.9% 10 ML Syringe FLUSH PRN (12:50)
[2022-04-19] MEDS ORDERED: Ondansetron 4 MG/2 ML SDV IVPUSH ONE (12:50)
[2022-04-19] MEDS ORDERED: Sodium Chloride 0.9% 1,000 ML IV SCH (13:00)
[2022-04-19] MEDS ORDERED: HYDROmorphone 0.5 MG/0.5 ML Syringe IVPUSH ONE ×2 (14:40→15:24)
== END 2022-04-19 19:47 | disposition home or self-care (01) ==
LOC: JD.ED 11:52
DX: K85.90 Acute pancreatitis without necrosis or infection, unspecified (principal); E11.9 Type 2 diabetes mellitus without complications; F17.210 Nicotine dependence, cigarettes, uncomplicated; Z79.899 Other long term (current) drug therapy; Z79.4 Long term (current) use of insulin; Z90.49 Acquired absence of other specified parts of digestive tract
CPT/HCPCS: 36415; 80053; 83690; 96361; 96374; 96375; 96376; 99284; J1170; J2405; J3490; J7030

== ENCOUNTER 2022-04-21 11:32 | Emergency (ER) | payer OTHER ==
[2022-04-21 11:51] VITALS: BP 125/94; PULSE 117
[2022-04-21] MEDS ORDERED: Sodium Chloride 0.9% 10 ML Syringe FLUSH PRN ×2 (12:08→12:15)
[2022-04-21] MEDS ORDERED: Iopamidol 612 MG/ML 100 ML Bottle IVPUSH ONE (12:15)
[2022-04-21] MEDS ORDERED: HYDROmorphone 0.5 MG/0.5 ML Syringe IVPUSH ONE ×3 (12:58→19:28)
[2022-04-21] MEDS ORDERED: Potassium Chloride 20 MEQ Tab.ER PO ONE (13:37)
[2022-04-21] MEDS ORDERED: Insulin Glargine,Human Rec. Analog 100 Units/ML 3 ML Pen SUBCUT STA (13:49)
[2022-04-21] MEDS: Potassium Chloride 10 MEQ in Premix Bag 1 BAG IV SCH ×4 (14:19→18:34)
[2022-04-21] MEDS ORDERED: Ondansetron 4 MG/2 ML SDV IVPUSH ONE (14:27)
[2022-04-21] MEDS ORDERED: Sodium Chloride 0.9% 1,000 ML IV SCH (14:45)
== END 2022-04-21 20:26 | disposition home or self-care (01) ==
LOC: JD.ED 11:32
DX: K94.23 Gastrostomy malfunction (principal); E87.6 Hypokalemia; K21.9 Gastro-esophageal reflux disease without esophagitis; E11.9 Type 2 diabetes mellitus without complications; F17.210 Nicotine dependence, cigarettes, uncomplicated; Z79.4 Long term (current) use of insulin; Z79.899 Other long term (current) drug therapy; Z20.822 Contact with and (suspected) exposure to COVID-19
CPT/HCPCS: 36415; 74177; 80053; 82140; 83690; 83735; 85025; 86140; 87635; 96361; 96365; 96366; 96375; 96376; 99284; A9270; J1170; J1815; J2405; J3480; J3490; J7030; Q9967; U0002

== ENCOUNTER 2022-05-18 21:51 | Emergency (ER) | payer OTHER ==
[2022-05-18] MEDS ORDERED: HYDROmorphone 1 MG/ML Syringe IVPUSH ONE ×2 (22:34→23:56)
[2022-05-18] MEDS ORDERED: Sodium Chloride 0.9% 1,000 ML IV ONE (22:34)
[2022-05-18] MEDS ORDERED: Ondansetron 4 MG/2 ML SDV IVPUSH ONE (22:34)
[2022-05-18] MEDS ORDERED: Magnesium Sulfate/Water 4 GM in Premix Bag 1 BAG IV ONE (23:39)
[2022-05-19] MEDS ORDERED: HYDROmorphone 1 MG/ML Syringe IVPUSH ONE ×2 (02:21→05:19)
[2022-05-19] MEDS ORDERED: Metoclopramide 10 MG/2 ML SDV IVPUSH STA (02:21)
[2022-05-19] MEDS ORDERED: Potassium Chloride 20 MEQ Tab.ER PO ONE (05:19)
[2022-05-19 06:38] VITALS: BP 95/77; PULSE 62
== END 2022-05-19 06:34 | disposition home or self-care (01) ==
LOC: JD.ED 21:51
DX: K94.13 Enterostomy malfunction (principal); E87.6 Hypokalemia; E83.42 Hypomagnesemia; G89.29 Other chronic pain; R10.9 Unspecified abdominal pain; E11.9 Type 2 diabetes mellitus without complications; F17.210 Nicotine dependence, cigarettes, uncomplicated; Z79.899 Other long term (current) drug therapy; Z79.4 Long term (current) use of insulin; Z90.49 Acquired absence of other specified parts of digestive tract
CPT/HCPCS: 36415; 80053; 83690; 83735; 85025; 96361; 96365; 96366; 96375; 96376; 99283; A9270; J1170; J2405; J2765; J3475; J7030

== ENCOUNTER 2022-06-13 19:12 | Emergency (ER) | payer OTHER ==
[2022-06-13] MEDS ORDERED: Sodium Chloride 0.9% 1,000 ML IV ONE ×2 (19:51→21:29)
[2022-06-13] MEDS ORDERED: Metoclopramide 10 MG/2 ML SDV IVPUSH STA (19:51)
[2022-06-13] MEDS ORDERED: HYDROmorphone 1 MG/ML Syringe IVPUSH ONE ×2 (19:51→22:01)
[2022-06-13] MEDS ORDERED: Potassium Chloride 20 MEQ Tab.ER PO ONE ×2 (20:32→22:25)
[2022-06-13] MEDS ORDERED: Insulin Regular, Human 100 Units/ML 3 ML Vial IV STA (20:33)
[2022-06-13] MEDS ORDERED: Iopamidol 612 MG/ML 100 ML Bottle IVPUSH ONE (23:27)
[2022-06-14] MEDS ORDERED: Potassium Chloride 20 MEQ Tab.ER PO ONE ×4 (00:43→08:14)
[2022-06-14] MEDS ORDERED: HYDROmorphone 1 MG/ML Syringe IVPUSH ONE ×4 (00:58→09:50)
[2022-06-14] MEDS: Sodium Chloride 0.9% 1,000 ML IV SCH ×2 (01:07→03:45)
[2022-06-14] MEDS ORDERED: HYDROmorphone 0.5 MG/0.5 ML Syringe IVPUSH ONE (03:33)
[2022-06-14] MEDS ORDERED: Sodium Chloride 0.9% 1,000 ML IV SCH ×2 (03:45→08:15)
[2022-06-14] MEDS ORDERED: Metoclopramide 10 MG/2 ML SDV IVPUSH STA (06:32)
[2022-06-14 06:45] VITALS: BP 133/83; PULSE 79
== END 2022-06-14 10:25 | disposition home or self-care (01) ==
LOC: JD.ED 19:12
DX: K86.1 Other chronic pancreatitis (principal); E87.6 Hypokalemia; K21.9 Gastro-esophageal reflux disease without esophagitis; E11.9 Type 2 diabetes mellitus without complications; Z72.0 Tobacco use; Z79.4 Long term (current) use of insulin; Z79.899 Other long term (current) drug therapy
CPT/HCPCS: 36415; 71046; 74018; 80048; 80053; 81001; 82947; 83690; 83735; 84484; 85007; 85027; 93005; 96361; 96374; 96375; 96376; 99284; A9270; J1170; J1815; J2765; J7030; Q9967

== ENCOUNTER 2022-08-26 13:10 | Emergency (ER) | payer OTHER ==
[2022-08-26] MEDS ORDERED: Sodium Chloride 0.9% 10 ML Syringe FLUSH PRN (14:55)
[2022-08-26 15:32] LABS: ESTIMATED GFR 113 mL/min (>60)
[2022-08-26] MEDS ORDERED: Metoclopramide 10 MG/2 ML SDV IVPUSH ONE ×2 (15:32→19:14)
[2022-08-26] MEDS ORDERED: HYDROmorphone 1 MG/ML Syringe IVPUSH ONE ×3 (15:32→19:13)
[2022-08-26] MEDS ORDERED: Dextrose 5%-0.9% NaCl 1,000 ML IV SCH (15:45)
[2022-08-26] MEDS ORDERED: Sodium Chloride 0.9% 10 ML Syringe FLUSH ONE (16:27)
[2022-08-26] MEDS ORDERED: Iopamidol 612 MG/ML 100 ML Bottle IVPUSH ONE (16:27)
[2022-08-26 20:37] VITALS: BP 111/84; PULSE 83
== END 2022-08-26 20:25 | disposition home or self-care (01) ==
LOC: JD.ED 13:10
DX: K85.20 Alcohol induced acute pancreatitis without necrosis or infection (principal); K86.1 Other chronic pancreatitis; K86.3 Pseudocyst of pancreas; K21.9 Gastro-esophageal reflux disease without esophagitis; E11.9 Type 2 diabetes mellitus without complications; Z72.0 Tobacco use; Z79.4 Long term (current) use of insulin; Z79.899 Other long term (current) drug therapy
CPT/HCPCS: 36415; 74018; 74177; 80053; 81001; 83690; 83735; 85025; 86140; 93005; 96361; 96374; 96375; 96376; 99284; J1170; J2765; J3490; J7042; Q9967; 93010

== ENCOUNTER 2022-08-30 11:22 | Emergency (ER) | payer OTHER ==
[2022-08-30] MEDS ORDERED: Sodium Chloride 0.9% 1,000 ML IV ONE (11:40)
[2022-08-30] MEDS ORDERED: Sodium Chloride 0.9% 10 ML Syringe FLUSH PRN (11:40)
[2022-08-30] MEDS ORDERED: Metoclopramide 10 MG/2 ML SDV IVPUSH ONE (11:41)
[2022-08-30] MEDS ORDERED: HYDROmorphone 1 MG/ML Syringe IVPUSH STA (11:41)
[2022-08-30 12:33] LABS: ESTIMATED GFR 113 mL/min (>60)
[2022-08-30] MEDS ORDERED: Potassium Chloride 20 MEQ Tab.ER PO ONE ×2 (12:48→14:06)
[2022-08-30] MEDS ORDERED: HYDROmorphone 0.5 MG/0.5 ML Syringe IVPUSH ONE ×2 (12:48→14:06)
[2022-08-30] MEDS ORDERED: Ondansetron 4 MG/2 ML SDV IVPUSH ONE (14:30)
[2022-08-30 15:08] VITALS: BP 127/67; PULSE 84
== END 2022-08-30 14:40 | disposition home or self-care (01) ==
LOC: JD.ED 11:22
DX: K86.0 Alcohol-induced chronic pancreatitis (principal); E87.6 Hypokalemia; E78.00 Pure hypercholesterolemia, unspecified; E11.9 Type 2 diabetes mellitus without complications; K21.9 Gastro-esophageal reflux disease without esophagitis; Z79.4 Long term (current) use of insulin; Z79.899 Other long term (current) drug therapy; Z72.0 Tobacco use
CPT/HCPCS: 36415; 80053; 81001; 83690; 83735; 84484; 85025; 85610; 85730; 86140; 93005; 96361; 96374; 96375; 96376; 99284; A9270; J1170; J2405; J2765; J3490; J7030; 93010

== ENCOUNTER 2022-10-14 06:21 | Emergency (ER) | payer OTHER ==
[2022-10-14 06:39] VITALS: BP 148/104; PULSE 123
[2022-10-14] MEDS ORDERED: Sodium Chloride 0.9% 10 ML Syringe FLUSH PRN ×2 (07:04→07:45)
[2022-10-14] MEDS ORDERED: Ondansetron 4 MG/2 ML SDV IVPUSH ONE (07:04)
[2022-10-14] MEDS ORDERED: HYDROmorphone 1 MG/ML Syringe IVPUSH ONE ×2 (07:07→08:59)
[2022-10-14] MEDS ORDERED: Iopamidol 612 MG/ML 100 ML Bottle IVPUSH ONE ×2 (07:35→07:45)
[2022-10-14] MEDS: Sodium Chloride 0.9% 1,000 ML IV SCH ×2 (08:00→10:05)
[2022-10-14] MEDS ORDERED: Metoclopramide 10 MG/2 ML SDV IVPUSH ONE (08:59)
[2022-10-14] MEDS ORDERED: Sodium Chloride 0.9% 1,000 ML IV ONE (09:41)
[2022-10-14] MEDS ORDERED: HYDROmorphone 0.5 MG/0.5 ML Syringe IVPUSH ONE (09:41)
== END 2022-10-14 11:14 | disposition home or self-care (01) ==
LOC: JD.ED 06:21
DX: K86.0 Alcohol-induced chronic pancreatitis (principal); R11.2 Nausea with vomiting, unspecified; E87.6 Hypokalemia; K21.9 Gastro-esophageal reflux disease without esophagitis; E11.9 Type 2 diabetes mellitus without complications; F17.210 Nicotine dependence, cigarettes, uncomplicated; Z79.01 Long term (current) use of anticoagulants; Z79.4 Long term (current) use of insulin; Z79.899 Other long term (current) drug therapy
CPT/HCPCS: 36415; 74177; 80053; 81001; 83690; 83735; 85025; 96361; 96374; 96375; 96376; 99285; J1170; J2405; J2765; J3490; J7030; Q9967; 99284

== ENCOUNTER 2022-11-15 03:59 | Emergency (ER) | payer BC, OTHER ==
[2022-11-15] MEDS ORDERED: Ondansetron 4 MG/2 ML SDV IVPUSH ONE (04:20)
[2022-11-15] MEDS ORDERED: Sodium Chloride 0.9% 1,000 ML IV ONE (04:20)
[2022-11-15] MEDS ORDERED: HYDROmorphone 1 MG/ML Syringe IVPUSH ONE ×2 (04:20→06:01)
[2022-11-15 04:48] LABS: HEMATOCRIT 33.9 % (34.1-44.9); HEMOGLOBIN 11.1 gm/dl (11.2-15.7); MEAN CORPUSCULAR HEMOGLOBIN 32.2 pg (25.6-32.2); MEAN CORPUSCULAR HGB CONC 32.7 g/dl (32.2-35.5); MEAN CORPUSCULAR VOLUME 98.3 fl (79.4-94.8); MEAN PLATELET VOLUME 8.3 fl (9.4-12.3); PLATELET COUNT,PLT 261 K/mm3 (182-369); RED BLOOD CELL COUNT 3.45 M/mm3 (3.98-5.22); WHITE BLOOD CELL COUNT,WBC 5.78 K/mm3 (3.98-10.04)
[2022-11-15 05:05] LABS: ANISOCYTOSIS 1+ SLIGHT; BAND PERCENT MAN 0 % (0-10); BASOPHILS PERCENT MAN 1 (0.1-1.2); EOSINOPHILS PERCENT MAN 3 % (0.7-5.8); LYMPHOCYTES % ATYPICAL MANUAL 0 %; LYMPHOCYTES PERCENT MAN 45 % (20-40); MONOCYTES PERCENT MAN 10 % (2-10); PLATELET COUNT ESTIMATE ADEQUATE
[2022-11-15 05:06] LABS: ALANINE AMINOTRANSFERASE,ALT 62 U/L (14-59); ALBUMIN 3.3 g/dl (3.4-5.0); ALKALINE PHOSPHATASE 239 U/L (46-116); ASPARTATE AMNIOTRANSFERASE,AST 67 U/L (15-37); BILIRUBIN TOTAL 0.5 mg/dL (0.2-1.0); BLOOD UREA NITROGEN,BUN 8 mg/dL (7-18); C-REACTIVE PROTEIN <0.2 mg/dL (<1.0); CALCIUM 8.6 mg/dL (8.5-10.1); CARBON DIOXIDE,CO2 31 mEq/L (21-32); CHLORIDE,CL 99 mEq/L (98-107); CREATININE 0.5 mg/dL (0.55-1.02); EST CRCL DRUG DOSING (CG) 125.63 mL/min; ESTIMATED GFR 123 mL/min (>60); GLUCOSE RANDOM 90 mg/dL (70-99); LIPASE 247 U/L (73-393); PROTEIN TOTAL,TP 6.6 g/dl (6.4-8.2); SODIUM,NA 136 mEq/L (136-145)
[2022-11-15] MEDS ORDERED: Potassium Chloride 20 MEQ Tab.ER PO ONE (05:33)
[2022-11-15] MEDS ORDERED: Dextrose 5%-0.9% NaCl with KCl 1,000 ML IV SCH (06:15)
[2022-11-15] MEDS ORDERED: HYDROmorphone 0.5 MG/0.5 ML Syringe IVPUSH ONE (08:08)
[2022-11-15 09:07] VITALS: BP 112/85; PULSE 82
== END 2022-11-15 09:00 | disposition home or self-care (01) ==
LOC: JD.ED 03:59
DX: E11.649 Type 2 diabetes mellitus with hypoglycemia without coma (principal); K86.0 Alcohol-induced chronic pancreatitis; E87.6 Hypokalemia; K21.9 Gastro-esophageal reflux disease without esophagitis; F17.210 Nicotine dependence, cigarettes, uncomplicated; Z79.4 Long term (current) use of insulin; Z79.899 Other long term (current) drug therapy
CPT/HCPCS: 36415; 80053; 82947; 83690; 85007; 85027; 86140; 96361; 96365; 96366; 96375; 96376; 99284; A9270; J1170; J2405; J3480; J7030

== ENCOUNTER 2023-01-18 14:41 | Inpatient (IN) | payer BC, OTHER ==
[2023-01-18] MEDS ORDERED: Sodium Chloride 0.9% 1,000 ML IV STA (15:37)
[2023-01-18 15:43] LABS: HEMATOCRIT 38.2 % (34.1-44.9); HEMOGLOBIN 12.3 gm/dl (11.2-15.7); MEAN CORPUSCULAR HEMOGLOBIN 32.5 pg (25.6-32.2); MEAN CORPUSCULAR HGB CONC 32.2 g/dl (32.2-35.5); MEAN CORPUSCULAR VOLUME 101.1 fl (79.4-94.8); MEAN PLATELET VOLUME 9.3 fl (9.4-12.3); PLATELET COUNT,PLT 282 K/mm3 (182-369); RED BLOOD CELL COUNT 3.78 M/mm3 (3.98-5.22); WHITE BLOOD CELL COUNT,WBC 5.89 K/mm3 (3.98-10.04)
[2023-01-18 16:14] LABS: A/G RATIO 1.1 (1-2); ALBUMIN 3.7 g/dl (3.4-5.0); ANION GAP 14.6 (5-15); BILIRUBIN TOTAL 0.8 mg/dL (0.2-1.0); BUN/CREATININE RATIO 11.4 (14-18); CALCIUM 9.1 mg/dL (8.5-10.1); CREATININE 0.7 mg/dL (0.55-1.02); EST CRCL DRUG DOSING (CG) 97.54 mL/min; ETHANOL BLOOD MEDICAL 0.03 gm% (0.00); POTASSIUM,K 3.6 mEq/L (3.5-5.1); PROTEIN TOTAL,TP 7.1 g/dl (6.4-8.2); TSH 1.44 uIU/mL (0.358-3.74)
[2023-01-18 16:15] LABS: BAND PERCENT MAN 0 % (0-10); BASOPHILS PERCENT MAN 0 (0.1-1.2); EOSINOPHILS PERCENT MAN 2 % (0.7-5.8); LYMPHOCYTES % ATYPICAL MANUAL 0 %; LYMPHOCYTES PERCENT MAN 53 % (20-40); MONOCYTES PERCENT MAN 4 % (2-10)
[2023-01-18 16:16] LABS: ANISOCYTOSIS 2+ MODERATE; PLATELET COUNT ESTIMATE ADEQUATE
[2023-01-18] MEDS ORDERED: 50% Dextrose in Water 50 ML Syringe IVPUSH ONE ×2 (16:21→17:36)
[2023-01-18] MEDS ORDERED: LORazepam 2 MG/ML SDV IVPUSH ONE ×2 (16:24→18:18)
[2023-01-18] MEDS ORDERED: HYDROmorphone 0.5 MG/0.5 ML Syringe IVPUSH ONE (16:24)
[2023-01-18 16:55] LABS: BARBITURATE SCREEN,URINE NEGATIVE (CUTOFF=200); BENZODIAZEPINES SCREEN,URINE NEGATIVE (CUTOFF=150); BUPRENORPHINE SCREEN,URINE NEGATIVE (CUTOFF=10); METHADONE SCREEN, URINE NEGATIVE (CUTOFF=200); METHAMPHETAMINES SCREEN, URINE NEGATIVE (CUTOFF=500); OXYCODONE SCREEN,URINE NEGATIVE (CUT0FF=100); PROPOXYPHENE SCREEN,URINE NEGATIVE (CUTOFF=300); THC SCREEN,URINE 20 NG/ML PRESUMPTIVE POSITIVE (CUTOFF=50)
[2023-01-18 17:01] LABS: AMPHETAMINES SCREEN, URINE NEGATIVE (CUTOFF=500)
[2023-01-18] MEDS ORDERED: Dextrose 5%-0.9% NaCl 1,000 ML IV ONE (18:02)
[2023-01-18 18:10] LABS: APPEARANCE,URINE CLOUDY (Clear); BILIRUBIN,URINE 1+ (Negative); COLOR,URINE YELLOW (Yellow); GLUCOSE,URINE NEGATIVE (Negative); KETONES,URINE 3+ (Negative); LEUKOCYTE ESTERASE,URINE NEGATIVE (Negative); NITRITE,URINE NEGATIVE (Negative); OCCULT BLOOD,URINE NEGATIVE (Negative); PROTEIN,URINE 2+ (Negative); UROBILINOGEN,URINE 0.2 (0.2-1.0)
[2023-01-18 18:30] LABS: AMORPHOUS SEDIMENT,URINE MANY /hpf (NOT SEEN); BACTERIA,URINE MODERATE /hpf (FEW); MUCUS,URINE FEW /hpf (FEW); RBC,URINE 0-5 /hpf (0-5); SQUAMOUS EPITHELIAL CELLS,UR 0-5 /hpf (0-5); WBC,URINE 0-5 /hpf (0-5)
[2023-01-18] MEDS ORDERED: Docusate Sodium 100 MG Cap PO PRN (19:19)
[2023-01-18] MEDS ORDERED: Ondansetron 4 MG Tab.DIS PO PRN (19:19)
[2023-01-18] MEDS ORDERED: cloNIDine 0.1 MG Tab PO PRN (19:21)
[2023-01-18] MEDS ORDERED: LORazepam 2 MG/ML SDV IV SCH ×2 (19:30)
[2023-01-18] MEDS: LORazepam 2 MG/ML SDV IVPUSH SCH ×2 (19:38→23:26)
[2023-01-18] MEDS: Heparin Sodium 5,000 Units/ML Vial SUBCUT SCH (19:39)
[2023-01-18] MEDS: Ondansetron 4 MG/2 ML SDV IV PRN (19:47)
[2023-01-18] MEDS: Dextrose 5%-0.45% NaCl 1,000 ML IV SCH (19:47)
[2023-01-18] MEDS: LORazepam 2 MG/ML SDV IV PRN ×3 (21:15→22:15)
[2023-01-18] MEDS: Folic Acid 1 MG Tab PO SCH (22:09)
[2023-01-18] MEDS: Thiamine 100 MG Tab PO SCH (22:09)
[2023-01-18] MEDS: Pantoprazole 40 MG Vial IV SCH (23:08)
[2023-01-19] MEDS: LORazepam 2 MG/ML SDV IVPUSH SCH ×6 (03:00→23:30)
[2023-01-19] MEDS: Heparin Sodium 5,000 Units/ML Vial SUBCUT SCH ×3 (03:00→19:32)
[2023-01-19] MEDS: Dextrose 5%-0.45% NaCl 1,000 ML IV SCH ×3 (03:01→19:41)
[2023-01-19 07:01] LABS: ALBUMIN 2.8 g/dl (3.4-5.0); ANION GAP 7.5 (5-15); BUN/CREATININE RATIO 7.1 (14-18); CALCIUM 8.2 mg/dL (8.5-10.1); CREATININE 0.7 mg/dL (0.55-1.02); EST CRCL DRUG DOSING (CG) 97.54 mL/min; POTASSIUM,K 3.5 mEq/L (3.5-5.1); PROTEIN TOTAL,TP 5.5 g/dl (6.4-8.2)
[2023-01-19] MEDS ORDERED: LORazepam 2 MG/ML SDV IV PRN (07:19)
[2023-01-19] MEDS: Folic Acid 1 MG Tab PO SCH (08:37)
[2023-01-19] MEDS: Thiamine 100 MG Tab PO SCH (08:39)
[2023-01-19] MEDS: Pantoprazole 40 MG Vial IV SCH (08:39)
[2023-01-19] MEDS: LORazepam 2 MG/ML SDV IV PRN ×2 (20:26→21:28)
[2023-01-20] MEDS: LORazepam 2 MG/ML SDV IV PRN ×5 (01:11→21:12)
[2023-01-20] MEDS: Ondansetron 4 MG/2 ML SDV IV PRN (01:11)
[2023-01-20] MEDS: Heparin Sodium 5,000 Units/ML Vial SUBCUT SCH ×3 (03:26→19:51)
[2023-01-20] MEDS: LORazepam 2 MG/ML SDV IVPUSH SCH ×4 (03:26→16:28)
[2023-01-20] MEDS: Dextrose 5%-0.45% NaCl 1,000 ML IV SCH ×2 (03:27→13:49)
[2023-01-20 05:59] LABS: A/G RATIO 0.9 (1-2); ALBUMIN 2.8 g/dl (3.4-5.0); ANION GAP 11.8 (5-15); BILIRUBIN TOTAL 0.8 mg/dL (0.2-1.0); CALCIUM 8.1 mg/dL (8.5-10.1); CREATININE 0.6 mg/dL (0.55-1.02); EST CRCL DRUG DOSING (CG) 112.43 mL/min; POTASSIUM,K 3.8 mEq/L (3.5-5.1); PROTEIN TOTAL,TP 5.9 g/dl (6.4-8.2)
[2023-01-20 07:26] LABS: HEMOGLOBIN A1C 5.7 %
[2023-01-20] MEDS ORDERED: Insulin Lispro 100 Unit/ML 3 ML KwikPen SUBCUT SCH (08:30)
[2023-01-20] MEDS: Pantoprazole 40 MG Vial IV SCH (08:51)
[2023-01-20] MEDS: Folic Acid 1 MG Tab PO SCH (08:56)
[2023-01-20] MEDS: Thiamine 100 MG Tab PO SCH (08:56)
[2023-01-20] MEDS: Insulin Lispro 100 Unit/ML 3 ML KwikPen SUBCUT SCH ×3 (12:53→22:18)
[2023-01-21] MEDS: LORazepam 2 MG/ML SDV IV PRN (00:04)
[2023-01-21] MEDS: Dextrose 5%-0.45% NaCl 1,000 ML IV SCH (03:09)
[2023-01-21] MEDS: Heparin Sodium 5,000 Units/ML Vial SUBCUT SCH ×3 (03:09→19:30)
[2023-01-21 05:57] LABS: BASOPHILS ABSOLUTE AUTO 0.04 K/mm3 (0.01-0.08); BASOPHILS PERCENT AUTO 0.4 % (0.1-1.2); EOSINOPHILS ABSOLUTE AUTO 0.07 K/mm3 (0.04-0.36); EOSINOPHILS PERCENT AUTO 0.7 (0.7-5.8); HEMATOCRIT 37.3 % (34.1-44.9); HEMOGLOBIN 11.9 gm/dl (11.2-15.7); IMMATURE GRAN ABSOLUTE AUTO 0.01 K/mm3 (0.00-0.10); IMMATURE GRAN PERCENT AUTO 0.1 % (<=1.0); LYMPHOCYTES ABSOLUTE AUTO 1.93 K/mm3 (1.18-3.74); LYMPHOCYTES PERCENT AUTO 20.1 % (19.3-51.7); MEAN CORPUSCULAR HEMOGLOBIN 32.9 pg (25.6-32.2); MEAN CORPUSCULAR HGB CONC 31.9 g/dl (32.2-35.5); MEAN PLATELET VOLUME 10.7 fl (9.4-12.3); MONOCYTES PERCENT AUTO 7.3 % (4.7-12.5); NEUTROPHILS ABSOLUTE AUTO 6.87 K/mm3 (1.56-6.13); NEUTROPHILS PERCENT AUTO 71.4 % (34.0-71.1); PLATELET COUNT,PLT 266 K/mm3 (182-369); RED BLOOD CELL COUNT 3.62 M/mm3 (3.98-5.22); WHITE BLOOD CELL COUNT,WBC 9.62 K/mm3 (3.98-10.04)
[2023-01-21 06:32] LABS: A/G RATIO 0.8 (1-2); ALBUMIN 2.8 g/dl (3.4-5.0); BILIRUBIN TOTAL 0.4 mg/dL (0.2-1.0); BUN/CREATININE RATIO 8.6 (14-18); CALCIUM 8.2 mg/dL (8.5-10.1); CREATININE 0.7 mg/dL (0.55-1.02); EST CRCL DRUG DOSING (CG) 91.53 mL/min; PROTEIN TOTAL,TP 6.3 g/dl (6.4-8.2)
[2023-01-21] MEDS: Insulin Lispro 100 Unit/ML 3 ML KwikPen SUBCUT SCH ×4 (07:28→21:57)
[2023-01-21] MEDS: Thiamine 100 MG Tab PO SCH (08:51)
[2023-01-21] MEDS: Pantoprazole 40 MG Vial IV SCH (08:51)
[2023-01-21] MEDS: LORazepam 1 MG Tab PO PRN (21:13)
[2023-01-22] MEDS: Heparin Sodium 5,000 Units/ML Vial SUBCUT SCH ×3 (03:13→19:06)
[2023-01-22] MEDS: LORazepam 1 MG Tab PO PRN ×4 (03:13→20:35)
[2023-01-22] MEDS: Insulin Lispro 100 Unit/ML 3 ML KwikPen SUBCUT SCH ×4 (07:55→21:07)
[2023-01-22] MEDS: Pantoprazole 40 MG Vial IV SCH ×2 (07:56→08:41)
[2023-01-22] MEDS: Thiamine 100 MG Tab PO SCH ×2 (07:56→08:41)
[2023-01-22] MEDS: Insulin Glargine,Human Rec. Analog 100 Units/ML 3 ML Pen SUBCUT SCH (09:29)
[2023-01-22] MEDS: Magnesium Oxide 400 MG Tab PO SCH (09:29)
[2023-01-22] MEDS: Folic Acid 1 MG Tab PO SCH (09:29)
[2023-01-22] MEDS: Celecoxib 100 MG Cap PO PRN ×2 (10:49→20:34)
[2023-01-23] MEDS: LORazepam 1 MG Tab PO PRN ×4 (01:41→21:08)
[2023-01-23] MEDS: Metoclopramide 10 MG Tab PO PRN (02:42)
[2023-01-23] MEDS: Heparin Sodium 5,000 Units/ML Vial SUBCUT SCH ×3 (02:43→19:01)
[2023-01-23 05:59] LABS: BASOPHILS ABSOLUTE AUTO 0.05 K/mm3 (0.01-0.08); BASOPHILS PERCENT AUTO 0.9 % (0.1-1.2); EOSINOPHILS ABSOLUTE AUTO 0.07 K/mm3 (0.04-0.36); EOSINOPHILS PERCENT AUTO 1.2 (0.7-5.8); HEMATOCRIT 39.5 % (34.1-44.9); HEMOGLOBIN 12.6 gm/dl (11.2-15.7); IMMATURE GRAN ABSOLUTE AUTO 0.01 K/mm3 (0.00-0.10); IMMATURE GRAN PERCENT AUTO 0.2 % (<=1.0); LYMPHOCYTES ABSOLUTE AUTO 2.32 K/mm3 (1.18-3.74); LYMPHOCYTES PERCENT AUTO 40.3 % (19.3-51.7); MEAN CORPUSCULAR HEMOGLOBIN 32.6 pg (25.6-32.2); MEAN CORPUSCULAR HGB CONC 31.9 g/dl (32.2-35.5); MEAN CORPUSCULAR VOLUME 102.3 fl (79.4-94.8); MEAN PLATELET VOLUME 10.3 fl (9.4-12.3); MONOCYTES PERCENT AUTO 10.4 % (4.7-12.5); PLATELET COUNT,PLT 295 K/mm3 (182-369); RED BLOOD CELL COUNT 3.86 M/mm3 (3.98-5.22); WHITE BLOOD CELL COUNT,WBC 5.75 K/mm3 (3.98-10.04)
[2023-01-23 06:14] LABS: A/G RATIO 0.8 (1-2); ALBUMIN 3.2 g/dl (3.4-5.0); ANION GAP 12.1 (5-15); BILIRUBIN TOTAL 0.5 mg/dL (0.2-1.0); BUN/CREATININE RATIO 21.3 (14-18); CALCIUM 8.9 mg/dL (8.5-10.1); CREATININE 0.8 mg/dL (0.55-1.02); EST CRCL DRUG DOSING (CG) 76.74 mL/min; POTASSIUM,K 4.1 mEq/L (3.5-5.1)
[2023-01-23] MEDS: Insulin Lispro 100 Unit/ML 3 ML KwikPen SUBCUT SCH ×4 (08:15→21:06)
[2023-01-23] MEDS: Insulin Glargine,Human Rec. Analog 100 Units/ML 3 ML Pen SUBCUT SCH (08:17)
[2023-01-23] MEDS: Magnesium Oxide 400 MG Tab PO SCH (08:18)
[2023-01-23] MEDS: Thiamine 100 MG Tab PO SCH (08:18)
[2023-01-23] MEDS: Folic Acid 1 MG Tab PO SCH (08:18)
[2023-01-23] MEDS: Pantoprazole 40 MG Vial IV SCH (08:19)
[2023-01-23] MEDS ORDERED: Insulin Glargine,Human Rec. Analog 100 Units/ML 3 ML Pen SUBCUT ONE (09:45)
[2023-01-23] MEDS: Celecoxib 100 MG Cap PO PRN ×2 (12:37→21:08)
[2023-01-24] MEDS: Metoclopramide 10 MG Tab PO PRN (03:07)
[2023-01-24] MEDS: LORazepam 1 MG Tab PO PRN (03:07)
[2023-01-24] MEDS: Heparin Sodium 5,000 Units/ML Vial SUBCUT SCH ×2 (03:07→12:05)
[2023-01-24 06:04] LABS: BASOPHILS ABSOLUTE AUTO 0.04 K/mm3 (0.01-0.08); BASOPHILS PERCENT AUTO 0.7 % (0.1-1.2); EOSINOPHILS ABSOLUTE AUTO 0.08 K/mm3 (0.04-0.36); EOSINOPHILS PERCENT AUTO 1.5 (0.7-5.8); HEMATOCRIT 40.8 % (34.1-44.9); HEMOGLOBIN 13.1 gm/dl (11.2-15.7); IMMATURE GRAN ABSOLUTE AUTO 0.01 K/mm3 (0.00-0.10); IMMATURE GRAN PERCENT AUTO 0.2 % (<=1.0); LYMPHOCYTES ABSOLUTE AUTO 2.45 K/mm3 (1.18-3.74); LYMPHOCYTES PERCENT AUTO 45.4 % (19.3-51.7); MEAN CORPUSCULAR HEMOGLOBIN 32.9 pg (25.6-32.2); MEAN CORPUSCULAR HGB CONC 32.1 g/dl (32.2-35.5); MEAN CORPUSCULAR VOLUME 102.5 fl (79.4-94.8); MEAN PLATELET VOLUME 10.1 fl (9.4-12.3); MONOCYTES ABSOLUTE AUTO 0.48 K/mm3 (0.24-0.36); MONOCYTES PERCENT AUTO 8.9 % (4.7-12.5); NEUTROPHILS ABSOLUTE AUTO 2.34 K/mm3 (1.56-6.13); NEUTROPHILS PERCENT AUTO 43.3 % (34.0-71.1); PLATELET COUNT,PLT 325 K/mm3 (182-369); RED BLOOD CELL COUNT 3.98 M/mm3 (3.98-5.22)
[2023-01-24 06:37] LABS: A/G RATIO 0.9 (1-2); ALBUMIN 3.4 g/dl (3.4-5.0); ANION GAP 15.4 (5-15); BILIRUBIN TOTAL 0.5 mg/dL (0.2-1.0); BUN/CREATININE RATIO 34.3 (14-18); CALCIUM 9.1 mg/dL (8.5-10.1); CREATININE 0.7 mg/dL (0.55-1.02); EST CRCL DRUG DOSING (CG) 86.46 mL/min; MAGNESIUM 1.4 mg/dL (1.8-2.4); POTASSIUM,K 4.4 mEq/L (3.5-5.1); PROTEIN TOTAL,TP 7.3 g/dl (6.4-8.2)
[2023-01-24 06:38] LABS: FOLIC ACID 19.1 ng/mL (8.6-58.9)
[2023-01-24] MEDS: Insulin Lispro 100 Unit/ML 3 ML KwikPen SUBCUT SCH ×2 (08:22→12:05)
[2023-01-24] MEDS: Folic Acid 1 MG Tab PO SCH (08:24)
[2023-01-24] MEDS: Pantoprazole 40 MG Vial IV SCH (08:24)
[2023-01-24] MEDS: Magnesium Oxide 400 MG Tab PO SCH (08:24)
[2023-01-24] MEDS: Thiamine 100 MG Tab PO SCH (08:24)
[2023-01-24] MEDS ORDERED: Insulin Glargine,Human Rec. Analog 100 Units/ML 3 ML Pen SUBCUT SCH (09:00)
[2023-01-24 12:31] VITALS: BP 99/82; PULSE 97
== END 2023-01-24 12:40 | disposition home or self-care (01) | DRG 775 ==
LOC: JD.ED 14:41 → JD.ICU 19:18 → JD.MS 01-21 17:05
PROVIDERS: ADMIT Hospitalist; ATTEND Hospitalist
DX: F10.231 Alcohol dependence with withdrawal delirium (principal); K70.9 Alcoholic liver disease, unspecified; K21.9 Gastro-esophageal reflux disease without esophagitis; F17.210 Nicotine dependence, cigarettes, uncomplicated; K86.0 Alcohol-induced chronic pancreatitis; F19.10 Other psychoactive substance abuse, uncomplicated; R74.01 Elevation of levels of liver transaminase levels; D75.89 Other specified diseases of blood and blood-forming organs; F12.10 Cannabis abuse, uncomplicated; E11.65 Type 2 diabetes mellitus with hyperglycemia; I10 Essential (primary) hypertension; G89.29 Other chronic pain; Z79.4 Long term (current) use of insulin; Z79.899 Other long term (current) drug therapy; Z90.49 Acquired absence of other specified parts of digestive tract; Z98.890 Other specified postprocedural states; Z79.01 Long term (current) use of anticoagulants; Z56.0 Unemployment, unspecified
CPT/HCPCS: 36415; 80053; 80143; 80179; 80306; 80307; 81001; 81025; 82140; 82607; 82746; 82947; 83036; 83690; 83735; 84443; 85007; 85025; 85027; 93005; 93010; 96361; 96374; 96375; 99284; 99285-25; A9270-GY; C9113; J1170; J1644; J1815; J1815-GY; J2060; J2405; J3490; J7030; J7042

== ENCOUNTER 2023-03-19 17:58 | Emergency (ER) | payer BC ==
[2023-03-19] MEDS ORDERED: LORazepam 2 MG/ML SDV ONE (18:47)
[2023-03-19] MEDS ORDERED: LORazepam 2 MG/ML SDV IVPUSH ONE (18:48)
[2023-03-19] MEDS ORDERED: levETIRAcetam 500 MG/5 ML SDV ONE (18:50)
[2023-03-19] MEDS ORDERED: Sodium Chloride 0.9% 50 ML ONE (18:51)
[2023-03-19] MEDS ORDERED: Sodium Chloride 0.9% 100 ML ONE (18:52)
[2023-03-19] MEDS ORDERED: Metoclopramide 10 MG/2 ML SDV ONE (18:58)
[2023-03-19] MEDS ORDERED: levETIRAcetam 1,000 MG in Sodium Chloride 0.9% 100 ML IV ONE (18:59)
[2023-03-19] MEDS ORDERED: Dextrose 5%-0.9% NaCl 1,000 ML IV SCH (19:00)
[2023-03-19] MEDS ORDERED: Metoclopramide 10 MG/2 ML SDV IVPUSH ONE ×2 (19:02→20:30)
[2023-03-19 19:22] LABS: BASOPHILS ABSOLUTE AUTO 0.1 K/mm3 (0.0-0.2); BASOPHILS PERCENT AUTO 1.8 % (0.0-1.0); EOSINOPHILS ABSOLUTE AUTO 0.1 K/mm3 (0.0-0.4); EOSINOPHILS PERCENT AUTO 1.5 % (0.0-6.0); HEMATOCRIT 40.6 % (37.0-47.0); HEMOGLOBIN 14.1 gm/dl (12.0-16.0); IMMATURE GRAN ABSOLUTE AUTO 0.01 K/mm3 (0.00-0.05); IMMATURE GRAN PERCENT AUTO 0.2 % (0.0-0.4); LYMPHOCYTES ABSOLUTE AUTO 2.9 K/mm3 (1.0-4.8); LYMPHOCYTES PERCENT AUTO 46.7 % (24.0-44.0); MEAN CORPUSCULAR HEMOGLOBIN 33.3 pg (28.0-32.0); MEAN CORPUSCULAR HGB CONC 34.7 g/dl (32.0-36.0); MEAN CORPUSCULAR VOLUME 95.8 fl (83.0-99.0); MEAN PLATELET VOLUME 9.5 fl (9.4-12.3); MONOCYTES ABSOLUTE AUTO 0.7 K/mm3 (0.0-0.8); MONOCYTES PERCENT AUTO 11.9 % (0.0-8.0); NEUTROPHILS ABSOLUTE AUTO 2.3 K/mm3 (1.8-7.7); NEUTROPHILS PERCENT AUTO 37.9 % (41.0-71.0); PLATELET COUNT,PLT 214 K/mm3 (150-400); RED BLOOD CELL COUNT 4.24 M/mm3 (4.10-5.30); WHITE BLOOD CELL COUNT,WBC 6.15 K/mm3 (3.9-11.3)
[2023-03-19 19:32] LABS: ALANINE AMINOTRANSFERASE,ALT 63 U/L (14-59); ALBUMIN 3.8 g/dl (3.4-5.0); ALKALINE PHOSPHATASE 257 U/L (46-116); ANION GAP 16.7 (5-15); ASPARTATE AMNIOTRANSFERASE,AST 229 U/L (15-37); BILIRUBIN TOTAL 1.5 mg/dL (0.2-1.0); BLOOD UREA NITROGEN,BUN 7 mg/dL (7-18); BUN/CREATININE RATIO 11.7 (14-18); C-REACTIVE PROTEIN <0.2 mg/dL (<1.0); CALCIUM 8.9 mg/dL (8.5-10.1); CARBON DIOXIDE,CO2 23 mEq/L (21-32); CHLORIDE,CL 102 mEq/L (98-107); CREATININE 0.6 mg/dL (0.55-1.02); EST CRCL DRUG DOSING (CG) 100.96 mL/min; ESTIMATED GFR 118 mL/min (>60); GLUCOSE RANDOM 128 mg/dL (70-99); INR 1.29; LIPASE 230 U/L (73-393); MAGNESIUM 1.3 mg/dL (1.8-2.4); POTASSIUM,K 3.7 mEq/L (3.5-5.1); PROTEIN TOTAL,TP 7.5 g/dl (6.4-8.2); PROTHROMBIN TIME 13.5 SECONDS (9.7-12.0); SODIUM,NA 138 mEq/L (136-145)
[2023-03-19] MEDS ORDERED: Magnesium Sulfate/Water 4 GM in Premix Bag 1 BAG IV ONE (20:20)
[2023-03-19] MEDS ORDERED: HYDROmorphone 0.5 MG/0.5 ML Syringe IVPUSH ONE (20:30)
[2023-03-20] MEDS ORDERED: LORazepam 1 MG Tab PO ONE (00:13)
[2023-03-20 00:35] VITALS: BP 127/99; PULSE 86
== END 2023-03-20 00:18 | disposition home or self-care (01) ==
LOC: JD.ED 17:58
DX: G40.89 Other seizures (principal); F10.239 Alcohol dependence with withdrawal, unspecified; E83.42 Hypomagnesemia; R94.31 Abnormal electrocardiogram [ECG] [EKG]; K86.0 Alcohol-induced chronic pancreatitis; E11.9 Type 2 diabetes mellitus without complications; K21.9 Gastro-esophageal reflux disease without esophagitis; Z79.4 Long term (current) use of insulin; Z79.899 Other long term (current) drug therapy
CPT/HCPCS: 36415; 70450; 80053; 80307; 82009; 82947; 83605; 83690; 83735; 84484; 85025; 85610; 85730; 86140; 93005; 96361; 96365; 96366; 96375; 96376; 99285; A9270; J1170; J1953; J2060; J2765; J3475; J3490; J7042; 93010; 99284